=== PATIENT | female | born 1960 | race Caucasian/White ===

== ENCOUNTER → 2020-07-06 10:23 | Outpatient (BNVA) | payer OTHER, SELFPAY | PROVIDERS: PCP Internal Medicine; Visit Provider Surgery Vascular Surgery | DX: Z76.89 Persons encountering health services in other specified circumstances (principal) ==

== ENCOUNTER 2020-07-13 12:56 | Outpatient (REF) | payer OTHER, SELFPAY ==
--- NOTE | 2020-07-13 12:58 | US_ITS ---
EXAMINATION: BILATERAL LOWER EXTREMITY VENOUS ULTRASOUND (Reflux Exam) CLINICAL INDICATION: This a 60-year-old female with venous insufficiency. Varicose veins. COMPARISON: None. TECHNIQUE: Color flow triplex imaging and compression Doppler was performed to evaluate both the deep and the superficial systems bilaterally. To evaluate the superficial system, the examination was performed in the upright position. Color-flow Doppler ultrasound and compression ultrasound were utilized. In addition, maneuvers were utilized to demonstrate reflux. FINDINGS: 1. DEEP VENOUS ULTRASOUND OF THE RIGHT LOWER EXTREMITY: Common Femoral Vein: Compressible, normal respiratory variation and augmented flow. Femoral vein: Compressible, normal color flow and augmentation. Popliteal Vein: Compressible, normal augmentation. Deep Reflux: There is reflux in the popliteal vein with a reflux time of 2292 ms.. There is no evidence of a Alcantar's cyst. 2. SUPERFICIAL ULTRASOUND WITH DOPPLER OF RIGHT LOWER EXTREMITY GREAT SAPHENOUS VEIN: Saphenofemoral junction: 0.7 cm Mid thigh: 0.5 cm Above knee: 0.4 cm Below knee: 0.3 cm Mid calf: 0.3 cm Ankle: 0.3 cm GSV REFLUX: There is no reflux at the saphenofemoral junction down to the knee. There is a short focal area of reflux in the mid calf with reflux time of 2724 ms. DUPLICATED GREAT SAPHENOUS VEIN: There is a duplicated medial great saphenous vein measuring 0.3 cm without reflux. SMALL SAPHENOUS VEIN: Upper: 0.5 cm Lower: Your 0.3 cm SSV REFLUX: No evidence of reflux. VEIN OF GIACOMINI: None Imaged. PERFORATORS: There is a 0.2 cm proximal calf project coordinator rn without reflux. VARICOSITIES: There is a 0.3 cm mid thigh varicose vein without reflux. 3. DEEP VENOUS ULTRASOUND OF THE LEFT LOWER EXTREMITY: Common Femoral Vein: Compressible, normal respiratory variation and augmented flow. Femoral vein: Compressible, normal color flow and augmentation. Popliteal Vein: Compressible, normal augmentation. Deep Reflux: There is no evidence of reflux in the deep system in either the common femoral vein or the popliteal vein. There is no evidence of a Alcantar's cyst. 4. SUPERFICIAL ULTRASOUND WITH DOPPLER OF LEFT LOWER EXTREMITY GREAT SAPHENOUS VEIN: Saphenofemoral junction: 0.7 cm Mid thigh: 0.5 cm Above knee: 0.5 cm Below knee: 0.4 cm Mid calf: 0.3 cm Ankle: 0.3 cm GSV REFLUX: There is no reflux at the saphenofemoral junction down to the knee. There is a short focal area below the knee with reflux measuring 2524 ms. DUPLICATED GREAT SAPHENOUS VEIN: There is a medial duplicated Great saphenous vein measuring 0.4 cm. This is without reflux. SMALL SAPHENOUS VEIN: Upper: 0.2 cm Lower: 0.2 cm SSV REFLUX: There is only reflux in the mid calf within the small saphenous. This is not seen at the junction. VEIN OF GIACOMINI: None Imaged. PERFORATORS: There is a 0.2 cm project coordinator rn with reflux measuring 2564 ms. VARICOSITIES: None Imaged US/US venous duplex LE BI IMPRESSION: 1. There are bilateral patent great saphenous veins and medial duplicated great saphenous veins and small saphenous veins. However, there is no reflux at the saphenofemoral junction or the sapheno popliteal junction, respectively. 2. There is a nonrefluxing right mid thigh varicose vein. 3. There is a project coordinator rn with reflux in the left mid calf.
== END 2020-07-13 12:57 | disposition home or self-care (01) ==
LOC: HO.US 12:56
PROVIDERS: PCP Internal Medicine; Visit Provider Surgery Vascular Surgery
DX: I83.12 Varicose veins of left lower extremity with inflammation (principal); I83.813 Varicose veins of bilateral lower extremities with pain
CPT/HCPCS: 93970

== ENCOUNTER → 2020-08-03 13:06 | Outpatient (BNVA) | payer OTHER, SELFPAY | PROVIDERS: PCP Internal Medicine; Referring Provider Internal Medicine; Visit Provider Surgery Vascular Surgery | DX: Z76.89 Persons encountering health services in other specified circumstances (principal) ==

== ENCOUNTER 2020-09-30 07:20 | Outpatient (REF) | payer OTHER, SELFPAY ==
--- NOTE | ~2020-09-30 | MM_ITS ---
EXAMINATION: MM SCREENING DIGITAL BREAST TOMOSYNTHESIS, BILATERAL CLINICAL INFORMATION: Screening. Asymptomatic. The lifetime risk of breast cancer based on the Tyrer-Cuzick Model is 13.5%. COMPARISON: Mammography: September 25, 2019 and studies dating back to May 30, 2013 TECHNIQUE: Digital breast tomosynthesis is performed in both the craniocaudal and mediolateral oblique views along with computer-aided detection (CAD). Synthesized 2D images are generated from the tomosynthesis. FINDINGS: There are scattered areas of fibroglandular density (ACR BI-RADS breast composition Category b). There are no significant masses, abnormal calcifications, or other abnormalities. MM/MM tomosynthesis screening BI IMPRESSION: There are no significant changes from prior study. ASSESSMENT: BI-RADS 1: Negative RECOMMENDATION: Routine annual mammography screening. This patient's information was entered into a reminder system with a target due date for their next mammogram.
== END 2020-09-30 07:21 | disposition home or self-care (01) ==
LOC: HO.MAMMO 07:20
PROVIDERS: Visit Provider Internal Medicine
DX: Z12.31 Encounter for screening mammogram for malignant neoplasm of breast (principal)
CPT/HCPCS: 77063; 77067

== ENCOUNTER 2021-10-10 07:16 | Outpatient (REF) | payer OTHER, SELFPAY ==
--- NOTE | ~2021-10-10 | MM_ITS ---
EXAMINATION: MM SCREENING DIGITAL BREAST TOMOSYNTHESIS, BILATERAL CLINICAL INFORMATION: Screening. Asymptomatic. The lifetime risk of breast cancer based on the Tyrer-Cuzick Model is 13%. COMPARISON: Mammography: 09/30/2020, 09/25/2019, 09/19/2018 TECHNIQUE: Digital breast tomosynthesis is performed in both the craniocaudal and mediolateral oblique views along with computer-aided detection (CAD). Synthesized 2D images are generated from the tomosynthesis. FINDINGS: There are scattered areas of fibroglandular density (ACR BI-RADS breast composition Category b). There are no significant masses, abnormal calcifications, or other abnormalities. Parenchymal pattern is similar to prior studies. There is no developing density or architectural abnormality. There are 2 biopsy clip markers again seen posterior central right breast. The axilla and skin contours are unremarkable. No significant changes. MM/MM tomosynthesis screening BI IMPRESSION: No mammographic evidence of malignancy. ASSESSMENT: BI-RADS 1: Negative RECOMMENDATION: Routine annual mammography screening. This patient's information was entered into a reminder system with a target due date for their next mammogram.
== END 2021-10-10 07:17 | disposition home or self-care (01) ==
LOC: HO.MAMMO 07:16
PROVIDERS: PCP Internal Medicine; Visit Provider Internal Medicine
DX: Z12.31 Encounter for screening mammogram for malignant neoplasm of breast (principal)
CPT/HCPCS: 77063; 77067

== ENCOUNTER 2021-11-17 15:00 | Outpatient (RCR) | payer OTHER, SELFPAY | END 2021-11-17 18:16 | disposition home or self-care (01) | LOC: HO.PT 15:00 | PROVIDERS: PCP Internal Medicine; Visit Provider Physician Assistant | DX: M48.00 Spinal stenosis, site unspecified (principal) | CPT/HCPCS: 97012; 97014; 97110; 97140; 97162; 97530 ==

== ENCOUNTER 2022-09-06 15:00 | Outpatient (RCR) | payer OTHER, SELFPAY | END 2022-09-07 11:46 | disposition home or self-care (01) | LOC: HO.PT 15:00 | PROVIDERS: PCP Internal Medicine; Visit Provider Physician Assistant | DX: M25.511 Pain in right shoulder (principal) | CPT/HCPCS: 97110; 97140; 97162; 97530 ==

== ENCOUNTER → 2022-09-27 09:52 | Outpatient (BNVA) | payer OTHER, SELFPAY | PROVIDERS: PCP Internal Medicine; Visit Provider Internal Medicine Cardiovascular Disease | DX: R00.2 Palpitations (principal); I10 Essential (primary) hypertension; E78.5 Hyperlipidemia, unspecified | CPT/HCPCS: 93005 ==

== ENCOUNTER → 2022-10-02 15:11 | Outpatient (REF) | payer OTHER, SELFPAY ==
--- NOTE | 2022-10-02 15:22 | HM_ITS ---
Conclusion: 1. Patient was monitored for total period of 6 days and 23 hours 2. Baseline was normal sinus with average heart of 71 beats per minute 3. No significant pauses or bradycardia noted 4. Rare PACs and PVCs noted 5. Patient marked the counters 2 time without any associated symptoms, correlating with sinus rhythm MTDD
--- NOTE | 2022-10-02 15:22 | CA_ITS ---
Transthoracic Echocardiogram Patient (Last, First, Middle): Candelaria Cedillo G Gender: Female Date of : 1960 Age: 62 Procedure Date: 10/02/2022 Procedure Type: Transthoracic Echocardiogram Location: OP Height: 167.64 cm Weight: 96.62 kg BSA: 2.05 m2 Heart Rate: bpm BP: 123 / 60 mmHg [place] Developer: Referring MD: Tay Priest MD Director Business Management: Tay Priest MD Symptoms: I10 - Essential (primary) hypertension Study Quality: Good ECG Rhythm: Sinus Conclusions: - 1. Normal LV systolic function with grade 1 diastolic dysfunction 2. Early Mild aortic stenosis 3. Normal RV systolic pressure 4. No gross pericardial effusion Findings Left Ventricle Normal left ventricular size, thickness, and systolic function. The visually estimated ejection fraction is between 60-65%. Spectral Doppler is indicative of an impaired relaxation filling pattern. E/E prime ratio is <8, consistent with normal filling pressures. Evidence suggests grade I (mild) diastolic dysfunction. Right Ventricle Normal right ventricular cavity size and systolic function. Atria The left atrium is normal in size. There is no evidence of interatrial shunt. The right atrium is normal in size. Aortic Valve There is mild calcification of the aortic valve. There is mild thickening of the aortic valve. There is mild aortic valve stenosis. The peak aortic gradient is 22 mmHg.The mean gradient is 10 mmHg. There is no aortic valve regurgitation. Mitral Valve There is mild anterior and posterior mitral leaflet thickening. There is trace mitral valve regurgitation. There is no mitral valve stenosis. Pulmonic Valve The pulmonic valve was not well visualized. Tricuspid Valve Likely normal tricuspid valve structure and function. There is mild tricuspid valve regurgitation. The right ventricular systolic pressure is normal. The right ventricular systolic pressure is 32 mmHg. Normal right atrial pressure. There is no evidence of pulmonary hypertension. Great Vessels All visible segments of the aorta are normal in size. The pulmonary artery was not well visualized. Venous The inferior vena cava is normal in size and collapses greater than 50% with inspiration. Pericardium/Pleural There is no evidence of pericardial effusion. Prior Study Comparison No prior study available for comparison. Measurements 2D Linear Measurements IVSd: 1.16 0.6-0.9/0.6-1.0 cm LVIDd: 3.94 3.9-5.3/4.2-5.9 cm LVIDd Index: 1.92 2.4-3.2/2.2-3.1 cm/m2 LVIDs: 2.54 2.0-3.6 cm LVPWd: 1.14 0.7-1.1 cm Ao Root: 3.00 2.1-3.5 cm LA Diam: 3.60 2.7-3.8/3.0-4.0 cm LAIDs Index: 1.76 1.5-2.3 cm/m2 LV Mass: 189.08 67-162/88-224 g LV Mass Index: 92.23 43-95/49-115 g/m2 LVOT Diam: 2.20 3.0+(-)1.3 cm Mitral Valve MV Pk E: 0.59 MV PK A: 1.07 MV Decel Time: 210.00 E/A: 0.60 E'Lateral: 7.07 E'Medial: 7.94 E/E' Med: 7.40 E/E' Lat: 8.40 PHT: 62.00 MVA PHT: 3.55 Decel White: 2.81 Aortic Valve AoV Pk Rajendra: 2.37 AoV Mn Rajendra: 1.47 AoV VTI: 0.42 AoV Pk Grad: 22.00 Aov Mn Grad: 10.00 PRISCILA Cont.VTI: 2.03 LVOT LVOT Pk Rajendra: 1.12 LVOT Mn Rajendra: 0.74 LVOT VTI: 0.23 LVOT Pk Grad: 5.00 LVOT Mn Grad: 3.00 LVOT Diam: 2.20 LVOT Area: 3.80 Diastolic Function MV Pk E: 0.59 MV Pk A: 1.07 E/A: 0.60 E'Medial: 7.94 E/E' Med: 7.40 E' Laterial: 7.07 E/E' Lat: 8.40 Right Ventricle TAPSE (mm): 28.00 Tricuspid Valve TR Pk Rajendra: 2.68 TR Pk Grad: 29.00 RA Press: 3.00 RVSP: 32.00 Great Vessels Aorta Ao Root-2D: 3.00 2.0-3.7 cm Ao Asc: 3.50 2.1-3.4 cm Pulmonary Valve PV Pk Rajendra: 1.33 Peak PV Grad: 7.00 Updated in Other Vendor System with Status of Final Tay Priest MD electronically signed on 10/03/2022 5:22:33 PM with status of Final
== END ==
LOC: HO.CARD 15:11
PROVIDERS: PCP Internal Medicine; Visit Provider Internal Medicine Cardiovascular Disease
DX: R00.2 Palpitations (principal); I10 Essential (primary) hypertension
CPT/HCPCS: 93242; 93306

== ENCOUNTER → 2022-10-02 15:11 | Outpatient (REF) | payer OTHER, SELFPAY | LOC: HO.CARD 15:11 | PROVIDERS: PCP Internal Medicine; Visit Provider Internal Medicine Cardiovascular Disease | DX: Z13.89 Encounter for screening for other disorder (principal) ==

== ENCOUNTER 2022-10-23 07:22 | Outpatient (REF) | payer OTHER, SELFPAY ==
--- NOTE | ~2022-10-23 | MM_ITS ---
EXAMINATION: MM SCREENING DIGITAL BREAST TOMOSYNTHESIS, BILATERAL CLINICAL INFORMATION: Screening. Asymptomatic. Family history breast cancer. The lifetime risk of breast cancer based on the Tyrer-Cuzick Model is 18%. COMPARISON: Mammography: 10/10/2021, 09/30/2020, 09/25/2019, 09/19/2018 TECHNIQUE: Digital breast tomosynthesis is performed in both the craniocaudal and mediolateral oblique views along with computer-aided detection (CAD). Synthesized 2D images are generated from the tomosynthesis. FINDINGS: There are scattered areas of fibroglandular density (ACR BI-RADS breast composition Category b). There are no significant masses, abnormal calcifications, or other abnormalities. No architectural abnormality or developing density or significant change from prior studies. There are 2 biopsy clip markers again noted posterior lower central right breast. The axilla and skin contours are unremarkable. MM/MM tomosynthesis screening BI IMPRESSION: No mammographic evidence of malignancy. ASSESSMENT: BI-RADS 1: Negative RECOMMENDATION: Routine annual mammography screening. This patient's information was entered into a reminder system with a target due date for their next mammogram.
== END 2022-10-23 07:23 | disposition home or self-care (01) ==
LOC: HO.MAMMO 07:22
PROVIDERS: PCP Physician Assistant; Visit Provider Internal Medicine
DX: Z12.31 Encounter for screening mammogram for malignant neoplasm of breast (principal)
CPT/HCPCS: 77063; 77067

== ENCOUNTER → 2022-11-22 13:25 | Outpatient (BNVA) | payer OTHER, SELFPAY | PROVIDERS: PCP Physician Assistant; Referring Provider Physician Assistant; Visit Provider Internal Medicine Cardiovascular Disease | DX: Z13.89 Encounter for screening for other disorder (principal) ==

== ENCOUNTER 2022-12-18 14:54 | Outpatient (REF) | payer OTHER, SELFPAY ==
--- NOTE | ~2022-12-18 | XR_ITS ---
EXAMINATION: XR sacroiliac joint min 3V, XR lumbar spine 6V w bending CLINICAL INFORMATION: Reason for Exam M47.816 - Spondylosis without myelopathy or radiculopathy, lumbar region COMPARISON: Lumbar spine radiographs 03/29/2009 TECHNIQUE: 5 views of the lumbar spine. 3 views of the sacroiliac joints. FINDINGS: 5 nonrib-bearing lumbar-type vertebral bodies. Vertebral body heights are maintained. Levoconvex curvature of the lumbar spine. No pars defects. Moderate to advanced multilevel degenerative disc disease worst at L5-S1 where there is advanced loss of disc space height and advanced facet arthropathy. Atherosclerosis of the abdominal aorta. Right upper quadrant cholecystectomy clips. Sacroiliac joint spaces appear maintained. No cortical erosion. No sacral fracture identified. Mild degenerative changes of the bilateral hips with subchondral sclerosis. XR/XR sacroiliac joint min 3V IMPRESSION: 1. Levoconvex curvature of the lumbar spine with moderate to advanced multilevel degenerative disc disease worst at L5-S1 where there is advanced loss of disc space height and advanced facet arthropathy. 2. Sacroiliac joint spaces appear maintained. 3. Mild degenerative changes of the bilateral hips with subchondral sclerosis.
--- NOTE | ~2022-12-18 | XR_ITS ---
EXAMINATION: XR sacroiliac joint min 3V, XR lumbar spine 6V w bending CLINICAL INFORMATION: Reason for Exam M47.816 - Spondylosis without myelopathy or radiculopathy, lumbar region COMPARISON: Lumbar spine radiographs 03/29/2009 TECHNIQUE: 5 views of the lumbar spine. 3 views of the sacroiliac joints. FINDINGS: 5 nonrib-bearing lumbar-type vertebral bodies. Vertebral body heights are maintained. Levoconvex curvature of the lumbar spine. No pars defects. Moderate to advanced multilevel degenerative disc disease worst at L5-S1 where there is advanced loss of disc space height and advanced facet arthropathy. Atherosclerosis of the abdominal aorta. Right upper quadrant cholecystectomy clips. Sacroiliac joint spaces appear maintained. No cortical erosion. No sacral fracture identified. Mild degenerative changes of the bilateral hips with subchondral sclerosis. XR/XR lumbar spine 6V w bending IMPRESSION: 1. Levoconvex curvature of the lumbar spine with moderate to advanced multilevel degenerative disc disease worst at L5-S1 where there is advanced loss of disc space height and advanced facet arthropathy. 2. Sacroiliac joint spaces appear maintained. 3. Mild degenerative changes of the bilateral hips with subchondral sclerosis.
== END 2022-12-18 14:55 | disposition home or self-care (01) ==
LOC: HO.XRAY 14:54
PROVIDERS: PCP Physician Assistant; Visit Provider Nurse Practitioner Family
DX: M47.816 Spondylosis without myelopathy or radiculopathy, lumbar region (principal); M53.3 Sacrococcygeal disorders, not elsewhere classified; M62.830 Muscle spasm of back; M51.36 Other intervertebral disc degeneration, lumbar region
CPT/HCPCS: 72114; 72202

== ENCOUNTER 2023-05-05 07:57 | Outpatient (REF) | payer OTHER, SELFPAY ==
[2023-05-05 09:14] LABS: Cholesterol 223 mg/dL (<200); HDL Cholesterol 40 mg/dL (>40); LDL Cholesterol Calculated 132 mg/dL (<100); Triglycerides 257 mg/dL (<150)
[2023-05-07 13:44] LABS: CRP High Sensitivity 2.1 mg/L
== END 2023-05-05 07:58 | disposition home or self-care (01) ==
LOC: HO.LAB 07:57
PROVIDERS: PCP Internal Medicine; Visit Provider Internal Medicine Cardiovascular Disease
DX: E78.5 Hyperlipidemia, unspecified (principal); I25.10 Atherosclerotic heart disease of native coronary artery without angina pectoris
CPT/HCPCS: 36415; 80061; 86141

== ENCOUNTER 2023-05-21 14:50 | Outpatient (AMB) | payer OTHER, SELFPAY ==
[2023-05-21 14:53] VITALS: BP 118/78; PULSE 70; BMI 33.8
--- NOTE | 2023-05-21 14:53 | MHC.OFFVIS ---
Intake Vital Signs 05/21/23 14:53 Height 5 ft 6 in Weight 209 lb 7.026 oz BMI 33.8 BP 118/78 Blood Pressure Location Lt brachial Position Sitting Pulse 70 Intake Visit Reasons: 6 month f/u Intake Note: 6 month follow-up Card Seller Required: No Allergies acetaminophen [From VICODIN] Allergy (Unknown, Verified 12/18/22 15:08) LOW BP/NAUSEA hydrocodone [From VICODIN] Allergy (Unknown, Verified 12/18/22 15:08) NAUSEA/LOW BP oxycodone [From PERCOCET] Allergy (Unknown, Verified 12/18/22 15:08) LOW BP/NAUSEA tramadol [TRAMADOL] Allergy (Unknown, Verified 12/18/22 15:08) NAUSEA/LOW BP, hypotension rosuvastatin Adverse Reaction (Severe, Verified 05/07/23 10:39) Muscle Pain simvastatin Adverse Reaction (Severe, Verified 05/07/23 10:39) Muscle Pain Statin Adverse Reaction (Severe, Uncoded 12/01/22 15:02) Severe joint/muscle pain Medication List - Last Reconciled 05/21/23 by Tay Priest MD ezetimibe 10 mg PO DAILY magnesium carb,citrate,oxide (Magnesium Complex) mg PO multivitamin 1 tab PO DAILY olmesartan 20 mg PO DAILY omeprazole 20 mg PO DAILY HPI HPI Comments History of Present Illness Details Candelaria comes for follow-up. She has been doing well from cardiac perspective. No cardiac symptoms. Blood pressure is much better control. She is not having any significant palpitations. Taking medications regularly. Could not tolerate statin therapy due to muscle aches. LDL is elevated in the 130 range with elevated triglycerides and lower HDL consistent with metabolic syndrome. She does have findings of early aortic stenosis by echocardiogram [facility] Medical History Lumbar radiculitis Hyperlipidemia HTN (hypertension) Surgical History Hx laparoscopic cholecystectomy History of carpal tunnel surgery of left wrist History of carpal tunnel surgery of right wrist H/O section Family History Father Diabetes Hx of heart artery stent Pacemaker Mother No problems noted. Brother No problems noted. Brother No problems noted. Brother No problems noted. Sister No problems noted. Sister Breast cancer Sister No problems noted. Sister No problems noted. Daughter Family history of thyroid problem Daughter No problems noted. Daughter No problems noted. Social History Alcohol intake: current Alcohol intake frequency: holidays/special occasions only Alcohol type: beer Review of Systems Const Denies chills, Denies fatigue, Denies fever(s), Denies frequent falls, Denies weakness, Denies weight gain and Denies weight loss ENT Denies dizziness Card Denies chest pain, Denies leg edema, Denies lightheadedness, Denies palpitations, Denies dyspnea, Denies dyspnea on exertion, Denies orthopnea and Denies other (loss of consciousness) Resp Denies cough, Denies dyspnea and Denies dyspnea on exertion GI Denies hematochezia and Denies change in stool character Musc Denies abnormal gait, Denies muscle weakness, Denies numbness, Denies radiating pain into limb and Denies tingling Neuro Denies Abnormal speech present, Denies abnormal gait, Denies dizziness, Denies frequent falls, Denies numbness, Denies tingling and Denies weakness Endo Denies fatigue and Denies palpitations Physical Exam Vital Signs: Last Vital Signs Pulse 70 05/21/23 14:53 BP 118/78 05/21/23 14:53 BMI result Body Mass Index 33.8 Const General: cooperative, comfortable, no acute distress, alert, awake, Physically active and well groomed Nutritional Appearance: obese Limitations: no limitations Neck Neck: Yes trachea midline, Yes supple and Yes no JVD Resp Effort & Inspection: normal respiratory effort Auscultation: clear to auscultation bilaterally Cardio Jugular venous distension: no JVD Palpation: normal PMI Rate: regular rate Rhythm: regular rhythm Heart sounds: S1 normal heart sound present, S2 normal heart sound present, no click, no gallops, Murmur heart sound present systolic early and no rubs Neuro Speech: No Abnormal speech present Extrem General: Yes no clubbing, cyanosis or edema Assessment & Plan Assessment & Plan (1) HTN (hypertension): Code(s): I10 - Essential (primary) hypertension Plan: Hypertension which is much better control at this point time. Continue current medical therapy. Continue participate regular physical activity and weight loss program. Continue increased fluid and low salt intake. Advised to monitor blood pressure at home maintain a log. Continue participate in stress mitigation strategies. (2) Hyperlipidemia: Code(s): E78.5 - Hyperlipidemia, unspecified Plan: Mixed hyperlipidemia with lipid panel consistent with metabolic syndrome. Cannot tolerate statin therapy. Tolerating Zetia therapy. Although LDL is not well optimized. She has evidence of atherosclerosis with mild early aortic stenosis. Continue aggressive risk factor modification. Will start on Vascepa 2 g b.i.d. and follow-up lipid panel in 3 months time. If no adequate control consider PCSK9 inhibitor therapy. Will follow up in the clinic in 1 year's time, sooner p.r.n.. Thank you for allowing me to partake in her care Coding Level of Care Code Est Pt Level 3 (65417) Diagnoses HTN (hypertension) I10 Hyperlipidemia E78.5
== END 2023-05-21 15:24 | disposition home or self-care (01) ==
PROVIDERS: PCP Internal Medicine; Visit Provider Internal Medicine Cardiovascular Disease
DX: I10 Essential (primary) hypertension (principal); E78.5 Hyperlipidemia, unspecified
CPT/HCPCS: 99213

== ENCOUNTER → 2023-05-21 14:50 | Outpatient (BNVA) | payer OTHER, SELFPAY | PROVIDERS: PCP Internal Medicine; Visit Provider Internal Medicine Cardiovascular Disease ==

== ENCOUNTER 2023-09-25 19:52 | Observation (INO) | payer OTHER, SELFPAY ==
[2023-09-25 19:55] VITALS: BP 90/50; PULSE 64; O2SAT 99
--- NOTE | 2023-09-25 19:59 | ECG_ITS ---
Test Reason : SYNCOPY Blood Pressure : / mmHG Vent. Rate : 057 BPM Atrial Rate : 057 BPM P-R Int : 146 ms QRS Dur : 088 ms QT Int : 418 ms P-R-T Axes : 013 024 049 degrees QTc Int : 406 ms Sinus bradycardia Septal infarct , age undetermined Abnormal ECG When compared with ECG of 12-FEB-2019 15:17, Septal infarct is now Present Referred By: Generic ED Physician Electronically Signed By:KHRIS SANTANA MD
[2023-09-25 20:12] VITALS: BP 110/68; PULSE 62; RESP 16; TEMP 36.8; O2SAT 100; BMI 30.5
[2023-09-25 20:29] LABS: MANUAL DIFF FLAG NO
[2023-09-25 20:44] LABS: Anion Gap 13 (12-20); Blood Urea Nitrogen 18 mg/dL (9-16); Calcium 9.3 mg/dL (8.4-10.2); Carbon Dioxide 24 mmol/L (22-29); Chloride 106 mmol/L (96-108); Creatinine Clr Calc Pharmacy 58.5; Estimated Glomerular Filt Rate 50; Glucose Random 156 mg/dL (60-115); Potassium 4.1 mmol/L (3.3-5.1); Sodium 139 mmol/L (135-145)
[2023-09-25 20:45] LABS: Basophils Percent Auto 0.5 % (0-2); Eosinophils Absolute Auto 0.1 X10*3/uL (0.0-0.4); Eosinophils Percent Auto 1.4 % (0-4); Hematocrit 39.4 % (37.0-47.0); Hemoglobin 13.5 g/dl (12.0-16.0); Imm Gran Abs Auto 0.04 X10*3/uL (0.00-0.03); Imm Gran Pct Auto 0.5 % (0.0-0.4); Lymphocytes Absolute Auto 3.3 X10*3/uL (1.2-4.9); Lymphocytes Percent Auto 41.5 % (20-40); Mean Corpuscular HGB Conc 34.3 g/dl (31.0-35.0); Mean Corpuscular Hemoglobin 29.5 pg (27.0-33.0); Mean Corpuscular Volume 86.2 fL (80.0-98.0); Mean Platelet Volume 11.3 fL (9.4-12.3); Monocytes Absolute Auto 0.6 X10*3/uL (0.1-1.2); Monocytes Percent Auto 7.3 % (2-11); Neutrophils Absolute Auto 3.9 x10*3/uL (2.0-8.3); Neutrophils Percent Auto 48.8 % (45-73); Platelet Count 241 X10*3/uL (160-400); Red Blood Count 4.57 X10*6/uL (4.20-5.50); Red Cell Distribution Width 12.9 % (11.0-16.0)
--- NOTE | 2023-09-25 20:46 | ED.SYNCOPE ---
HPI - Syncope General Chief Complaint: Syncope Stated Complaint: SYNCOPE,TINGLING IN EXTREMITIES,GAVE BLOOD EARLIER Time Seen by Provider: 09/25/23 20:45 Source: patient and family Mode of arrival: EMS Limitations: no limitations History of Present Illness HPI narrative: Patient history of hypertension high cholesterol otherwise very healthy person turned her blurred as usual at around 11:00 had some food after that feels good went home sitting on the couch watching TV all sudden at 17:00 when patient stood up to get some water started having sweats nausea and lightheaded patient passed out while sitting on the couch was at the bedside patient does not remember no seizure activity no confusion no incontinence Patient never had similar symptoms in the past denies any palpitation or chest pain EMS gave patient 4 baby aspirin Related Data Home Medications Medication Instructions Recorded Confirmed omeprazole 20 mg capsule,delayed 20 mg PO DAILY 07/06/20 09/26/23 release magnesium carb,citrate,oxide 300 mg PO 05/21/23 05/21/23 (Magnesium Complex) multivitamin (Daily Value tablet) 1 tab PO DAILY 05/21/23 09/26/23 Previous Rx's Medication Instructions Recorded ezetimibe 10 mg tablet 10 mg PO DAILY #30 tabs 06/11/23 olmesartan 5 mg tablet 10 mg (2 x 5 mg) PO DAILY 30 days 08/23/23 #60 tabs Allergies Allergy/AdvReac Type Severity Reaction Status Date / Time acetaminophen [From VICODIN] Allergy Unknown LOW Verified 09/26/23 00:51 BP/NAUSEA hydrocodone [From VICODIN] Allergy Unknown NAUSEA/LOW Verified 09/26/23 00:51 BP oxycodone [From PERCOCET] Allergy Unknown LOW Verified 09/26/23 00:51 BP/NAUSEA tramadol [TRAMADOL] Allergy Unknown NAUSEA/LOW Verified 09/26/23 00:51 BP, hypotension rosuvastatin AdvReac Severe Muscle Pain Verified 09/26/23 00:51 simvastatin AdvReac Severe Muscle Pain Verified 09/26/23 00:51 Statin AdvReac Severe Severe Uncoded 12/01/22 15:02 joint/muscle pain Review of Systems Review of Systems: Yes all other systems are reviewed and are negative PMFSH Past Medical History Medical History Lumbar radiculitis Hyperlipidemia HTN (hypertension) Surgical History Hx laparoscopic cholecystectomy History of carpal tunnel surgery of left wrist History of carpal tunnel surgery of right wrist H/O section Family History Family History Father Diabetes Hx of heart artery stent Pacemaker Mother No problems noted. Brother No problems noted. Brother No problems noted. Brother No problems noted. Sister No problems noted. Sister Breast cancer Sister No problems noted. Sister No problems noted. Daughter Family history of thyroid problem Daughter No problems noted. Daughter No problems noted. Social History Social History Alcohol intake: current Alcohol intake frequency: holidays/special occasions only Alcohol type: beer Patient Tobacco Use Status: Never used Tobacco Smoked in Last 30 Days: No Use of substances other than those prescribed or required for medical reasons: No Advance Directives: No Advance Directives Information Provided: No Nutrition Risks: No Nutritional Risk Patient : No Physical Exam Vital Signs: Vital Signs: Last Vital Signs Temp 97.8 F 09/26/23 00:30 Pulse 62 09/26/23 00:30 Resp 17 09/26/23 00:30 BP 119/77 09/26/23 00:30 Pulse Ox 95 09/26/23 00:30 O2 Del Method Room Air 09/26/23 00:30 BMI result Body Mass Index 30.5 Appearance: Alert. Oriented X3. No acute distress. Eyes: PERRLA, No Nystagmus ENT: Pharynx normal. Oral Mucosa moist Neck: Normal inspection. Neck supple. CVS: Normal heart rate and rhythm. Pulses normal. Respiratory: No respiratory distress. Equal air entry bilateral, no wheezing/rales/rhonchi Abdomen: Soft and nontender. Bowel sounds are present, no mass palpable, no CVA tenderness Skin: Skin warm and dry. Normal skin color. Normal skin turgor. Extremities: No lower extremity edema. No calf tenderness Neuro: Oriented X 3. No motor deficit. No sensory deficit.No cerebellar signs , cranial nerves II-XII intact Medications Administered Generic Name Dose Route Start Last Admin Trade Name Freq PRN Reason Stop Dose Admin Enoxaparin Sodium 40 mg 09/25/23 23:30 09/26/23 01:07 Enoxaparin Sodium 40 Mg/0.4 Ml Syringe SUBCUT 40 mg Q24H MARIA Administration Sodium Chloride 3 ml 09/26/23 00:00 09/26/23 00:45 0.9 % Sodium Chloride Flush 3 Ml Syringe IVFLUSH 3 ml QSHIFT MARIA Administration Discontinued Medications Generic Name Dose Route Start Last Admin Trade Name Freq PRN Reason Stop Dose Admin Sodium Chloride 1,000 mls @ 999 mls/hr 09/25/23 23:31 09/26/23 00:47 Ns IV 09/26/23 00:31 999 mls/hr .Q1H1M ONE Administration Medical Decision Making Medical Decision Making [facility] Narrative: Patient's syncope episode etiology not very clear will admit patient for further evaluation orthostatics are normal patient had 2D echo and Holter monitoring on 10/19 which were normal Differential Diagnosis Differential Diagnoses: The differential diagnosis associated with the presentation includes Syncope/vasovagal/cardiac arrhythmias/complex partial seizure Admission/Observation Consideration of admission/observation: Escalation of care including admission/observation considered Consult Healthcare Provider Management of the patient was discussed with: Hospitalist Lab Data [facility] Lab Attestation statement: I reviewed the patient's lab results. 09/25/23 20:24 09/25/23 20:24 Labs: Lab Results 09/25/23 09/25/23 09/25/23 Range/Units 20:24 21:22 21:51 WBC 8.0 (4.8-10.8) X10*3/uL RBC 4.57 (4.20-5.50) X10*6/uL Hgb 13.5 (12.0-16.0) g/dl Hct 39.4 (37.0-47.0) % MCV 86.2 (80.0-98.0) fL MCH 29.5 (27.0-33.0) pg MCHC 34.3 (31.0-35.0) g/dl RDW 12.9 (11.0-16.0) % Plt Count 241 (160-400) X10*3/uL MPV 11.3 (9.4-12.3) fL Immature Gran % (Auto) 0.5 H (0.0-0.4) % Neut % (Auto) 48.8 (45-73) % Lymph % (Auto) 41.5 H (20-40) % [place] % (Auto) 7.3 (2-11) % Eos % (Auto) 1.4 (0-4) % Baso % (Auto) 0.5 (0-2) % Lymph # (Auto) 3.3 (1.2-4.9) X10*3/uL [place] # (Auto) 0.6 (0.1-1.2) X10*3/uL Eos # (Auto) 0.1 (0.0-0.4) X10*3/uL Baso # (Auto) 0.0 (0.0-0.2) X10*3/uL Abs Immat Gran (auto) 0.04 H (0.00-0.03) X10*3/uL Absolute Neuts (auto) 3.9 (2.0-8.3) x10*3/uL Absolute Nucleated RBC 0.000 (0.0-0.012) X10*3/uL Nucleated RBC % (auto) 0.0 (0.0-0.2) /100WBC PT 11.6 (11.1-13.3) SEC INR 1.0 (0.9-1.1) APTT 30.0 (26.0-36.8) SEC D-Dimer High Sensitivty 155 NG/ML Sodium 139 (135-145) mmol/L Potassium 4.1 (3.3-5.1) mmol/L Chloride 106 (96-108) mmol/L Carbon Dioxide 24 (22-29) mmol/L Anion Gap 13 (12-20) BUN 18 H (9-16) mg/dL Creatinine 1.10 (0.5-1.4) mg/dL Estim Creat Clear Calc 58.5 Estimated GFR 50 Random Glucose 156 H (60-115) mg/dL Calcium 9.3 (8.4-10.2) mg/dL Magnesium 2.1 (1.6-2.6) mg/dL Troponin I High Sens < 2.7 (<3.5-17.0) ng/L Independent Interpretation I performed an independent interpretation of an: EKG Interpretation: Sinus bradycardia heart rate 57 beats per minute poor progression of R-waves in the anterior leads no acute ST T wave changes no acute ischemia Discharge Plan Discharge Clinical Impression: Syncope Patient Disposition: Admitted As Inpatient Interventions: Admission Worksheet (ED) Last Done: 09/26/23 01:15
--- NOTE | 2023-09-25 21:09 | MHC.EDTECH ---
This Tech assumed care of this PT upon arrival. Pt changed into hospital gown and placed on airport sales agent. red fall risk wristband and socks put on PT. EKG completed and handed to provider. Blood work and urine sent to lab for processing
[2023-09-25 22:02] LABS: Prothrombin Time 11.6 SEC (11.1-13.3)
[2023-09-25 22:04] LABS: D Dimer High Sensitivity 155 NG/ML
[2023-09-25 22:10] LABS: Magnesium 2.1 mg/dL (1.6-2.6)
[2023-09-25 22:18] VITALS: BP 120/71; PULSE 63
[2023-09-25 22:18] LABS: Troponin-I High Sensitivity < 2.7 ng/L (<3.5-17.0)
[2023-09-25 22:19] VITALS: BP 123/98; BP 129/75; PULSE 74; PULSE 77
[2023-09-25 22:22] VITALS: BP 120/71; PULSE 64; RESP 18; TEMP 36.8; O2SAT 99
[2023-09-25 23:29] VITALS: PULSE 64; O2SAT 99
--- NOTE | 2023-09-25 23:31 | P.HPHOSP_ITS ---
History of Present Illness Date of Service: 09/25/23 Chief Complaint: Syncope This is a 63-year-old female with pertinent history of essential hypertension, gastroesophageal reflux disease, mixed hyperlipidemia who presents to the emergency department for evaluation of syncope. Patient states she donated blood on the day of presentation. Patient was watching TV in the evening when she stood up to go to the kitchen. As she stood up, patient states she got dizzy and felt like she would pass out. Also had an episode of sweating and nausea. The found that the patient was passed out in the chair. It lasted for about 5 minutes. No rhythmic jerking movement of extremities, no tongue bite. No confusion after the syncopal episode. Patient states she has donated blood before but this has never happened. No chest discomfort or palpitations. No fever, chills, shortness of breath, abdominal pain, changes in urinary or bowel habits. Review of Systems 2 Constitutional: Constitutional: Reports no additional constitutional complaints Cardiovascular: Cardiovascular: Reports no additional cardiovascular complaints and Reports syncope Respiratory: Respiratory: Reports no additional respiratory complaints Gastrointestinal: Gastrointestinal: Reports no additional gastrointestinal complaints Genitourinary: Genitourinary: Reports no additional female genitourinary complaints Musculoskeletal: Musculoskeletal: Reports tingling Neurologic: Reports syncope and Reports tingling PMFSH Medical History Lumbar radiculitis Hyperlipidemia HTN (hypertension) Family History Father Diabetes Hx of heart artery stent Pacemaker Mother No problems noted. Brother No problems noted. Brother No problems noted. Brother No problems noted. Sister No problems noted. Sister Breast cancer Sister No problems noted. Sister No problems noted. Daughter Family history of thyroid problem Daughter No problems noted. Daughter No problems noted. Surgical History Hx laparoscopic cholecystectomy History of carpal tunnel surgery of left wrist History of carpal tunnel surgery of right wrist H/O section Social History Alcohol intake: current Alcohol intake frequency: holidays/special occasions only Alcohol type: beer Advance Directives: No Advance Directives Information Provided: No Meds Allergies Allergy/AdvReac Type Severity Reaction Status Date / Time acetaminophen [From VICODIN] Allergy Unknown LOW Verified 12/18/22 15:08 BP/NAUSEA hydrocodone [From VICODIN] Allergy Unknown NAUSEA/LOW Verified 12/18/22 15:08 BP oxycodone [From PERCOCET] Allergy Unknown LOW Verified 12/18/22 15:08 BP/NAUSEA tramadol [TRAMADOL] Allergy Unknown NAUSEA/LOW Verified 12/18/22 15:08 BP, hypotension rosuvastatin AdvReac Severe Muscle Pain Verified 05/07/23 10:39 simvastatin AdvReac Severe Muscle Pain Verified 05/07/23 10:39 Statin AdvReac Severe Severe Uncoded 12/01/22 15:02 joint/muscle pain Home Medications Medication Instructions Recorded Confirmed Last Taken Type omeprazole 20 mg capsule,delayed 20 mg PO DAILY 07/06/20 05/21/23 Unknown History release magnesium carb,citrate,oxide mg PO 05/21/23 05/21/23 Unknown History (Magnesium Complex) multivitamin 1 tab PO DAILY 05/21/23 05/21/23 Unknown History Physical Exam 2 Vital Signs and Narrative: Vital Signs: Last Vital Signs Temp 98.3 F 09/25/23 22:22 Pulse 64 09/25/23 22:22 Resp 18 09/25/23 22:22 BP 120/71 09/25/23 22:22 Pulse Ox 99 09/25/23 22:22 O2 Del Method Room Air 09/25/23 22:22 BMI result Body Mass Index 30.5 Middle-aged female lying in bed in no distress Neck supple, no JVD Regular rate and rhythm, S1-S2 heard Regular breath sounds bilaterally, no wheezing or crackles appreciated Abdomen soft nontender, no guarding, no rigidity Patient is awake, alert and oriented to self, place, time and person ; no focal motor deficit Psych: Normal mood No pedal edema Results Labs 09/25/23 20:24 09/25/23 20:24 Labs: Laboratory Results - last 24 hr 09/25/23 09/25/23 09/25/23 20:24 21:22 21:51 MCV 86.2 MCH 29.5 MCHC 34.3 RDW 12.9 Plt Count 241 MPV 11.3 Immature Gran % (Auto) 0.5 H Neut % (Auto) 48.8 Lymph % (Auto) 41.5 H [place] % (Auto) 7.3 Eos % (Auto) 1.4 Baso % (Auto) 0.5 Lymph # (Auto) 3.3 [place] # (Auto) 0.6 Eos # (Auto) 0.1 Baso # (Auto) 0.0 Abs Immat Gran (auto) 0.04 H Absolute Neuts (auto) 3.9 Absolute Nucleated RBC 0.000 Nucleated RBC % (auto) 0.0 PT 11.6 INR 1.0 APTT 30.0 D-Dimer High Sensitivty 155 Anion Gap 13 Estim Creat Clear Calc 58.5 Estimated GFR 50 Random Glucose 156 H Calcium 9.3 Magnesium 2.1 Assessment and Plan (1) Syncope: Status: Acute Plan This is a 63-year-old female with pertinent history of essential hypertension, gastroesophageal reflux disease, mixed hyperlipidemia who presents to the emergency department for evaluation of syncope. #. Syncope, unclear etiology: ?orthostatic. Will admit patient for observation with cardiac monitoring. Resuscitating with IV crystalloids. Repeat orthostatics in a.m. #. Essential hypertension: On olmesartan #. Gastroesophageal reflux disease: On PPI #. Mixed hyperlipidemia: On Zetia Med rec pending DVT prophylaxis: Lovenox Full code Quality Stroke Does the patient have a stroke diagnosis?: No VTE Prior VTE?: No VTE Risk Level:: Medical - moderate - high VTE Device Contraindication: Treatment Not Indicated VTE Drug Contraindication: N/A - Med Ordered
[2023-09-26] VITALS (8 sets, daily range): BP systolic 114–140; BP diastolic 58–91; PULSE 58–76; RESP 17–20; TEMP 36–36.6; O2SAT 95–100
[2023-09-26] MEDS: 0.9 % Sodium Chloride Flush 3 ML SYRINGE IVFLUSH ×2 (00:45→08:45)
[2023-09-26] MEDS: 0.9 % Sodium Chloride 1,000 ML 999 ML IV (00:47)
[2023-09-26] MEDS: Enoxaparin Sodium 40 MG/0.4 ML SYRINGE SUBCUT (01:07)
--- NOTE | 2023-09-26 01:14 | PC.NURSE ---
Med rec done, Pt able to verbalize home meds.
--- NOTE | 2023-09-26 01:21 | PC.NURSE ---
Pt A&Ox4, reports slight headache, declined Tylenol at this time. Pt one staff stand by assist to bedside commode. VSS. Pt will be transferred to room 444, Pt and aware of plan.
--- NOTE | 2023-09-26 07:00 | CA_ITS ---
Transthoracic Echocardiogram Patient (Last, First, Middle): Candelaria Cedillo G Gender: Female Date of : 1960 Age: 63 Procedure Date: 09/26/2023 Procedure Type: Transthoracic [place] [facility] [place]: 167.64 cm Weight: 85.73 kg BSA: 1.95 m2 Heart Rate: bpm BP: 129 / 91 mmHg Portfolio Specialist: TO Referring MD: Arnie Loyola MD Flame Degreaser: Tay Priest MD Symptoms: syncope, history of Study Quality: Fair/Contrast ECG Rhythm: Sinus Conclusions: - 1. Normal LV ejection fraction of 60-65% with grade 1 diastolic dysfunction 2. Sjgl-al-eglxfybu aortic stenosis 3. Normal RV systolic pressure 4. Upper limits of normal ascending aortic size 5. No pericardial effusion Findings Procedure Information Contrast agent, definity, is being given per protocol without apparent complications. Left Ventricle Normal left ventricular size, thickness, and systolic function. The visually estimated ejection fraction is between 60-65%. Spectral Doppler is indicative of an impaired relaxation filling pattern. E/E prime ratio is <8, consistent with normal filling pressures. Evidence suggests grade I (mild) diastolic dysfunction. Right Ventricle Normal right ventricular cavity size and systolic function. Atria The left atrium is normal in size. There is no evidence of interatrial shunt. The right atrium is normal in size. Aortic Valve There is moderate calcification of the aortic valve. There is mild to moderate aortic valve stenosis. The peak aortic gradient is 24 mmHg.The mean gradient is 13 mmHg. The aortic valve area is 1.41 cm2. There is no aortic valve regurgitation. Mitral Valve Normal mitral valve structure and function. There is trace mitral valve regurgitation. There is no mitral valve stenosis. Pulmonic Valve The pulmonic valve is likely normal. Tricuspid Valve Normal tricuspid valve structure. There is mild tricuspid valve regurgitation. The right ventricular systolic pressure is normal. The right ventricular systolic pressure is 30 mmHg. Normal right atrial pressure. There is no evidence of pulmonary hypertension. Great Vessels The pulmonary artery was not well visualized. Venous The inferior vena cava is normal in size and collapses greater than 50% with inspiration. Pericardium/Pleural There is no evidence of pericardial effusion. Measurements 2D Linear Measurements IVSd: 1.14 0.6-0.9/0.6-1.0 cm LVIDd: 4.24 3.9-5.3/4.2-5.9 cm LVIDd Index: 2.17 2.4-3.2/2.2-3.1 cm/m2 LVIDs: 2.41 2.0-3.6 cm LVPWd: 1.06 0.7-1.1 cm LA Diam: 3.40 2.7-3.8/3.0-4.0 cm LAIDs Index: 1.74 1.5-2.3 cm/m2 LV Mass: 198.50 67-162/88-224 g LV Mass Index: 101.79 43-95/49-115 g/m2 LVOT Diam: 2.20 3.0+(-)1.3 cm 2D Systolic Function EF 4C: 58.70 >55% EF 2C: 60.50 >55% EF BiP: 60.70 >55% Mitral Valve MV Pk E: 0.70 MV PK A: 0.77 MV Decel Time: 225.00 E/A: 0.90 E'Lateral: 8.27 E'Medial: 7.18 E/E' Med: 9.70 E/E' Lat: 8.40 PHT: 66.00 MVA PHT: 3.33 Decel [place]: 3.10 Aortic Valve AoV Pk Rajendra: 2.44 AoV Mn Rajendra: 1.68 AoV VTI: 0.58 AoV Pk Grad: 24.00 Aov Mn Grad: 13.00 PRISCILA Cont.VTI: 1.41 LVOT LVOT Pk Rajendra: 1.03 LVOT Mn Rajendra: 0.77 LVOT VTI: 0.21 LVOT Pk Grad: 4.00 LVOT Mn Grad: 3.00 LVOT Diam: 2.20 LVOT Area: 3.80 Diastolic Function MV Pk E: 0.70 MV Pk A: 0.77 E/A: 0.90 E'Medial: 7.18 E/E' Med: 9.70 E' Laterial: 8.27 E/E' Lat: 8.40 Right Ventricle TAPSE (mm): 25.40 TVS' Rajendra: 16.90 Tricuspid Valve TR Pk Rajendra: 2.59 TR Pk Grad: 27.00 RA Press: 3.00 RVSP: 30.00 Great Vessels Aorta Sinus of Valsalva: 3.18 2.0-3.[address] [place]: 2.47 1.7-3.4 cm Ao Asc: 3.50 2.1-3.4 cm Ao Arch: 2.60 Updated in Other Vendor System with Status of Final Tay Priest MD electronically signed on 09/27/2023 12:31:32 PM with status of Final
[2023-09-26 07:23] LABS: MANUAL DIFF FLAG NO
[2023-09-26 07:34] LABS: Basophils Percent Auto 0.4 % (0-2); Eosinophils Absolute Auto 0.1 X10*3/uL (0.0-0.4); Eosinophils Percent Auto 1.2 % (0-4); Hematocrit 37.8 % (37.0-47.0); Hemoglobin 12.5 g/dl (12.0-16.0); Imm Gran Abs Auto 0.01 X10*3/uL (0.00-0.03); Imm Gran Pct Auto 0.1 % (0.0-0.4); Lymphocytes Absolute Auto 2.5 X10*3/uL (1.2-4.9); Lymphocytes Percent Auto 34.2 % (20-40); Mean Corpuscular HGB Conc 33.1 g/dl (31.0-35.0); Mean Corpuscular Volume 87.7 fL (80.0-98.0); Mean Platelet Volume 11.6 fL (9.4-12.3); Monocytes Absolute Auto 0.6 X10*3/uL (0.1-1.2); Monocytes Percent Auto 7.8 % (2-11); Neutrophils Absolute Auto 4.1 x10*3/uL (2.0-8.3); Neutrophils Percent Auto 56.3 % (45-73); Platelet Count 236 X10*3/uL (160-400); Red Blood Count 4.31 X10*6/uL (4.20-5.50); Red Cell Distribution Width 13.1 % (11.0-16.0); White Blood Count 7.3 X10*3/uL (4.8-10.8)
[2023-09-26 07:45] LABS: Anion Gap 11 (12-20); Blood Urea Nitrogen 15 mg/dL (9-16); Carbon Dioxide 26 mmol/L (22-29); Chloride 110 mmol/L (96-108); Creatinine Clr Calc Pharmacy 75.7; Estimated Glomerular Filt Rate > 60; Glucose Random 98 mg/dL (60-115); Potassium 4.1 mmol/L (3.3-5.1); Sodium 143 mmol/L (135-145)
--- NOTE | 2023-09-26 08:22 | MHC.CM.PN ---
09/26/23 08:18 - Case Mgmt Progress Note by Naomy Statonue Acct Num: [id number] : 05/20/1943 Patient Age: 80 CM met with Patient at bedside and addressed MAYORGA with her, providing Patient with the original and a copy has been placed on the chart. 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 Home/self care is the goal and CM has initiated and will follow for dc planning. PCP is Dr. Horner from [facility]. Initialized on 09/26/23 08:18 - END OF NOTE
--- NOTE | 2023-09-26 08:26 | PHA.MEDREC ---
Pharmacy Consult ? Medication Reconciliation Pharmacy has completed the medication reconciliation with the patient. Pt confirmed med list, OTC items added per patient .
--- NOTE | 2023-09-26 10:09 | P.DS_ITS ---
DS: Providers Provider Date of Service: 09/26/23 Date of admission: 09/25/23 23:29 Primary care physician: Unknown Physician Consults: 09/26/23 08:46 Consult to Cardiology Routine Consulting Provider: [facility] [place] [facility] Reason for consultation: syncope, echo sep 2022 with mild DS: Diagnosis Discharge Diagnosis (1) Syncope: Status: Acute DS: Summary Hospital Course Hospital Course: from initial hpi: 63-year-old female with pertinent history of essential hypertension, gastroesophageal reflux disease, mixed hyperlipidemia who presents to the emergency department for evaluation of syncope. Patient states she donated blood on the day of presentation. Patient was watching TV in the evening when she stood up to go to the kitchen. As she stood up, patient states she got dizzy and felt like she would pass out. Also had an episode of sweating and nausea. The found that the patient was passed out in the chair. It lasted for about 5 minutes. No rhythmic jerking movement of extremities, no tongue bite. No confusion after the syncopal episode. Patient states she has donated blood before but this has never happened. No chest discomfort or palpitations. No fever, chills, shortness of breath, abdominal pain, changes in urinary or bowel habits. hospital course: Patient was observed after syncopal event. No events on telemetry. Likely this was orthostatic hypotension. Due to history of mild aortic stenosis was seen by Cardiology who felt this was unlikely to be etiology. Echo was done, preliminarily no significant change in aortic stenosis, official results should be followed up as outpatient. For hypertension patient will restarted on losartan on discharge. For hyperlipidemia will continue on Zetia. Time Attestation Discharge coordination time: Greater than 30 minutes Quality: Safe Use of Opioids Does Pt have an Active Cancer Diagnosis on the Problem List?: No Quality: Stroke Does the patient have a stroke diagnosis?: No Physical Exam Vital Signs: Vital Signs: Last Vital Signs Temp 96.8 F 09/26/23 07:18 Pulse 76 09/26/23 08:13 Resp 18 09/26/23 07:18 BP 129/91 H 09/26/23 08:13 Pulse Ox 100 09/26/23 07:18 O2 Del Method Room Air 09/26/23 07:18 BMI result Body Mass Index 30.5 General: AO X 3, no acute distress Resp: CTA bilateral, no accessory muscles used CVS: S1,S2,RRR, murmur GI: soft, non tender, non distended Neuro: motor grossly intact, alert Psych: appropriate affect, appropriate insight DS: Data Data Completed and Pending Labs on day of discharge: Laboratory Results - last 24 hr 09/25/23 09/25/23 09/25/23 20:24 21:22 21:51 WBC 8.0 RBC 4.57 Hgb 13.5 Hct 39.4 MCV 86.2 MCH 29.5 MCHC 34.3 RDW 12.9 Plt Count 241 MPV 11.3 Immature Gran % (Auto) 0.5 H Neut % (Auto) 48.8 Lymph % (Auto) 41.5 H [place] % (Auto) 7.3 Eos % (Auto) 1.4 Baso % (Auto) 0.5 Lymph # (Auto) 3.3 [place] # (Auto) 0.6 Eos # (Auto) 0.1 Baso # (Auto) 0.0 Abs Immat Gran (auto) 0.04 H Absolute Neuts (auto) 3.9 Absolute Nucleated RBC 0.000 Nucleated RBC % (auto) 0.0 PT 11.6 INR 1.0 APTT 30.0 D-Dimer High Sensitivty 155 Sodium 139 Potassium 4.1 Chloride 106 Carbon Dioxide 24 Anion Gap 13 BUN 18 H Creatinine 1.10 Estim Creat Clear Calc 58.5 Estimated GFR 50 Random Glucose 156 H Calcium 9.3 Magnesium 2.1 Troponin I High Sens < 2.7 09/26/23 06:45 WBC 7.3 RBC 4.31 Hgb 12.5 Hct 37.8 MCV 87.7 MCH 29.0 MCHC 33.1 RDW 13.1 Plt Count 236 MPV 11.6 Immature Gran % (Auto) 0.1 Neut % (Auto) 56.3 Lymph % (Auto) 34.2 [place] % (Auto) 7.8 Eos % (Auto) 1.2 Baso % (Auto) 0.4 Lymph # (Auto) 2.5 [place] # (Auto) 0.6 Eos # (Auto) 0.1 Baso # (Auto) 0.0 Abs Immat Gran (auto) 0.01 Absolute Neuts (auto) 4.1 Absolute Nucleated RBC 0.000 Nucleated RBC % (auto) 0.0 PT INR APTT D-Dimer High Sensitivty Sodium 143 Potassium 4.1 Chloride 110 H Carbon Dioxide 26 Anion Gap 11 L BUN 15 Creatinine 0.85 Estim Creat Clear Calc 75.7 Estimated GFR > 60 Random Glucose 98 Calcium 9.0 Magnesium Troponin I High Sens Discharge Plan Discharge Anticipated Discharge Date/Time: 09/26/23 10:08 Patient Disposition: Home, Self-Care Discharge Diagnosis: syncope - likely orthostatic hypotension Referrals: Physician,Unknown J [Primary Care Provider] - 1 Week Discharge Medications: Continued olmesartan 5 mg tablet 10 mg PO DAILY 30 Days Qty: 60 5RF ascorbic acid (vitamin C) [Vitamin C] 500 mg Tablet 500 mg PO DAILY ezetimibe 10 mg tablet 10 mg PO BEDTIME magnesium oxide 400 mg magnesium Tablet 400 mg PO DAILY omeprazole 20 mg capsule,delayed release(DR/EC) 20 mg PO DAILY multivitamin [Daily Value] Tablet 1 tab PO DAILY Discharge Orders: Discharge Order (Routine); Ordered 09/26/23 Ordered By: Arnie Loyola Diet: Advance to usual diet Activity on Discharge: As tolerated Stand Alone Forms: Patient Portal Discharge page Care Plan Goals: avoid syncope Health Concerns: syncope Plan of Treatment: hydration, follow up official echo results Assessment: see above
--- NOTE | 2023-09-26 10:09 | MHC.CM.PN ---
Per ROUNDS discussion, Patient will be medically cleared for dc to home today, self care.
--- NOTE | 2023-09-26 10:53 | PM.CNCAR ---
History of Present Illness History of Present Illness Date of Service: 09/26/23 Requesting physician: Arnie Loyola Consult reason: other (Syncope) Chief complaint: syncope Narrative: I was consulted to see Candelaria in cardiology consultation today for syncopal episode. She was in a routine state of health yesterday event for donating blood. Donated a point of blood. She says she was drinking the water whole day. She then went home and will resting and was still hydrating. Patient was then sitting and watching TV and she got up and got lightheaded, got nauseous. She got off warm and she felt like she was going to faint. She does not recall after that and found her sitting and patient had lost consciousness. There was no clear epileptic motions. No bowel bladder incontinence. No tongue bites. Patient was then brought to the emergency room. She has never had these symptoms in the past. She has never had any syncopal episode in the past. Brought to the hospital and admitted overnight. She was given IV fluids. She feels well today. No overnight arrhythmias detected. Review of Systems Constitutional: Constitutional: Reports no additional constitutional complaints Eyes: Eyes: Reports no additional eye complaints Cardiovascular: Cardiovascular: Denies chest pain, Denies syncope, Denies leg edema, Reports lightheadedness, Reports Loss of Consciousness, Denies palpitations and Denies dyspnea Respiratory: Respiratory: Reports no additional respiratory complaints and Denies dyspnea Gastrointestinal: Gastrointestinal: Reports nausea Genitourinary: Genitourinary: Reports no additional female genitourinary complaints Musculoskeletal: Musculoskeletal: Reports no additional musculoskeletal complaints Integumentary/Breasts: Skin/Breast: Reports system reviewed and no additional complaints, except as docu Neurologic: Reports system reviewed and no additional complaints, except as documented and Denies syncope Psychiatric: Psychiatric: Reports no additional psychiatric complaints Endocrine: Endocrine: Denies palpitations [facility] Past Medical History Medical History Lumbar radiculitis Hyperlipidemia HTN (hypertension) Family History Family History Father Diabetes Hx of heart artery stent Pacemaker Mother No problems noted. Brother No problems noted. Brother No problems noted. Brother No problems noted. Sister No problems noted. Sister Breast cancer Sister No problems noted. Sister No problems noted. Daughter Family history of thyroid problem Daughter No problems noted. Daughter No problems noted. Surgical History Surgical History Hx laparoscopic cholecystectomy History of carpal tunnel surgery of left wrist History of carpal tunnel surgery of right wrist H/O section Social History Social History Alcohol intake: current Alcohol intake frequency: holidays/special occasions only Alcohol type: beer Patient Tobacco Use Status: Never used Tobacco Smoked in Last 30 Days: No Use of substances other than those prescribed or required for medical reasons: No Currently Displaying Signs/Symptoms of Drug Intoxication Withdrawal: No Advance Directives: No Advance Directives Information Provided: No Nutrition Risks: No Nutritional Risk Patient : No service: No Meds Allergies Allergy/AdvReac Type Severity Reaction Status Date / Time acetaminophen [From VICODIN] Allergy Unknown LOW Verified 09/26/23 00:51 BP/NAUSEA hydrocodone [From VICODIN] Allergy Unknown NAUSEA/LOW Verified 09/26/23 00:51 BP oxycodone [From PERCOCET] Allergy Unknown LOW Verified 09/26/23 00:51 BP/NAUSEA tramadol [TRAMADOL] Allergy Unknown NAUSEA/LOW Verified 09/26/23 00:51 BP, hypotension rosuvastatin AdvReac Severe Muscle Pain Verified 09/26/23 00:51 simvastatin AdvReac Severe Muscle Pain Verified 09/26/23 00:51 Statin AdvReac Severe Severe Uncoded 12/01/22 15:02 joint/muscle pain Active Medications: Current Medications Acetaminophen (Acetaminophen 325 Mg Tablet) 650 mg PO Q6H PRN PRN Reason: Pain, Mild (Pain Scale 1-3) Enoxaparin Sodium (Enoxaparin Sodium 40 Mg/0.4 Ml Syringe) 40 mg SUBCUT Q24H [facility] Last Admin: 09/26/23 01:07 Dose: 40 mg Melatonin (Melatonin 3 Mg Tablet) 6 mg PO BEDTIME PRN PRN Reason: Insomnia Ondansetron HCl (Ondansetron Hcl 4 Mg/2 Ml Vial) 4 mg IVPUSH Q8H PRN PRN Reason: Nausea and Vomiting Sodium Chloride (0.9 % Sodium Chloride Flush 3 Ml Syringe) 3 ml IVFLUSH QSHIFT [facility] Last Admin: 09/26/23 08:45 Dose: 3 ml Home Medications Medication Instructions Recorded Confirmed Last Taken Type omeprazole 20 mg capsule,delayed 20 mg PO DAILY 07/06/20 09/26/23 Unknown History release multivitamin (Daily Value tablet) 1 tab PO DAILY 05/21/23 09/26/23 Unknown History ascorbic acid (vitamin C) 500 mg 500 mg PO DAILY 09/26/23 09/26/23 Unknown History tablet (Vitamin C) ezetimibe 10 mg tablet 10 mg PO BEDTIME 09/26/23 09/26/23 Unknown History magnesium oxide 400 mg PO DAILY 09/26/23 09/26/23 Unknown History Physical Exam Vital Signs: Vital Signs: Last Vital Signs Temp 96.8 F 09/26/23 07:18 Pulse 76 09/26/23 08:13 Resp 18 09/26/23 07:18 BP 129/91 H 09/26/23 08:13 Pulse Ox 100 09/26/23 07:18 O2 Del Method Room Air 09/26/23 07:18 BMI result Body Mass Index 30.5 Const: General: cooperative, comfortable, no acute distress, alert, awake and Physically active Nutritional Appearance: overweight Orientation/consciousness: patient oriented x3 Limitations: no limitations HEENT: Head: Yes normocephalic and Yes atraumatic Neck: Neck: Yes trachea midline, Yes supple and Yes no JVD Resp: Effort & Inspection: normal respiratory effort Auscultation: clear to auscultation bilaterally Cardio: Jugular venous distension: no JVD Palpation: normal PMI Rate: regular rate Rhythm: regular rhythm Heart sounds: S1 normal heart sound present, S2 normal heart sound present, no click, no gallops, no murmurs and no rubs GI: Auscultation: normal bowel sounds Skin: General skin exam: no rashes or lesions noted Neuro: General: patient oriented x3 and no focal motor deficits Extrem: General: Yes no clubbing, cyanosis or edema Psych: Appearance: grossly normal Objective Labs and Meds 09/26/23 06:45 09/26/23 06:45 Lab results: Laboratory Results - last 24 hr 09/25/23 09/25/23 09/25/23 20:24 21:22 21:51 WBC 8.0 RBC 4.57 Hgb 13.5 Hct 39.4 MCV 86.2 MCH 29.5 MCHC 34.3 RDW 12.9 Plt Count 241 MPV 11.3 Immature Gran % (Auto) 0.5 H Neut % (Auto) 48.8 Lymph % (Auto) 41.[address] [place] % (Auto) 7.3 Eos % (Auto) 1.4 Baso % (Auto) 0.5 Lymph # (Auto) 3.3 [place] # (Auto) 0.6 Eos # (Auto) 0.1 Baso # (Auto) 0.0 Abs Immat Gran (auto) 0.04 H Absolute Neuts (auto) 3.9 Absolute Nucleated RBC 0.000 Nucleated RBC % (auto) 0.0 PT 11.6 INR 1.0 APTT 30.0 D-Dimer High Sensitivty 155 Sodium 139 Potassium 4.1 Chloride 106 Carbon Dioxide 24 Anion Gap 13 BUN 18 H Creatinine 1.10 Estim Creat Clear Calc 58.5 Estimated GFR 50 Random Glucose 156 H Calcium 9.3 Magnesium 2.1 Troponin I High Sens < 2.7 09/26/23 06:45 WBC 7.3 RBC 4.31 Hgb 12.5 Hct 37.8 MCV 87.7 MCH 29.0 MCHC 33.1 RDW 13.1 Plt Count 236 MPV 11.6 Immature Gran % (Auto) 0.1 Neut % (Auto) 56.3 Lymph % (Auto) 34.2 [place] % (Auto) 7.8 Eos % (Auto) 1.2 Baso % (Auto) 0.4 Lymph # (Auto) 2.5 [place] # (Auto) 0.6 Eos # (Auto) 0.1 Baso # (Auto) 0.0 Abs Immat Gran (auto) 0.01 Absolute Neuts (auto) 4.1 Absolute Nucleated RBC 0.000 Nucleated RBC % (auto) 0.0 PT INR APTT D-Dimer High Sensitivty Sodium 143 Potassium 4.1 Chloride 110 H Carbon Dioxide 26 Anion Gap 11 L BUN 15 Creatinine 0.85 Estim Creat Clear Calc 75.7 Estimated GFR > 60 Random Glucose 98 Calcium 9.0 Magnesium Troponin I High Sens Assessment and Plan (1) Syncope: Status: Acute Plan Syncope which appears to be either orthostatic or vasovagal in nature related to intravascular volume depletion after blood donation. Symptoms highly suggestive of that. Symptoms have improved. We discussed about mechanism of orthostatic syncope and/or vasovagal syncope. Advised to maintain adequate hydration. She has history of hypertension would avoid significant salt intake. Will obtain Holter monitor as outpatient. Echocardiogram was being performed while I was interviewing the patient. Will review it once images available to review. At this point time I think patient can be discharged home. Will follow up in the clinic after testing. Thank you for allowing me to partake in her care Procedures Date of Service Date of Service: 09/26/23
== END 2023-09-26 14:16 | disposition home or self-care (01) ==
LOC: HO.ED 20:45 → HO.EDOVER 23:59 → HO.IMC 09-26 00:17
PROVIDERS: Admitting Provider Student in an Organized Health Care Education/Training Program; Emergency Provider Internal Medicine; PCP Internal Medicine; Visit Provider Internal Medicine
DX: R55 Syncope and collapse (principal); I10 Essential (primary) hypertension; K21.9 Gastro-esophageal reflux disease without esophagitis; E78.2 Mixed hyperlipidemia; R11.0 Nausea; R61 Generalized hyperhidrosis; Z79.899 Other long term (current) drug therapy
CPT/HCPCS: 36415; 80048; 83735; 84484; 85025; 85379; 85610; 85730; 93005; 93306; 96360; 96361; 96372; 99222; 99285; J1650; Q9957

== ENCOUNTER → 2023-09-25 19:59 | Outpatient (BNV) | payer OTHER, SELFPAY | PROVIDERS: Admitting Provider Student in an Organized Health Care Education/Training Program; Emergency Provider Internal Medicine; Visit Provider Internal Medicine Cardiovascular Disease | DX: R00.1 Bradycardia, unspecified (principal); R94.31 Abnormal electrocardiogram [ECG] [EKG] | CPT/HCPCS: 93010 ==

== ENCOUNTER → 2023-09-25 20:30 | Outpatient (BNV) | payer OTHER, SELFPAY | PROVIDERS: Emergency Provider Internal Medicine; Visit Provider Student in an Organized Health Care Education/Training Program | DX: R55 Syncope and collapse (principal) | CPT/HCPCS: 99222; 99239 ==

== ENCOUNTER 2023-09-25 23:29 | Outpatient (BNV) | payer OTHER, SELFPAY | END 2023-09-26 07:00 | PROVIDERS: Admitting Provider Student in an Organized Health Care Education/Training Program; Emergency Provider Internal Medicine; PCP Internal Medicine; Visit Provider Internal Medicine Cardiovascular Disease | DX: I35.0 Nonrheumatic aortic (valve) stenosis (principal) | CPT/HCPCS: 93306 ==

== ENCOUNTER → 2023-09-25 23:29 | Outpatient (BNV) | payer OTHER, SELFPAY | PROVIDERS: Admitting Provider Student in an Organized Health Care Education/Training Program; Emergency Provider Internal Medicine; Visit Provider Internal Medicine Cardiovascular Disease | DX: R55 Syncope and collapse (principal) | CPT/HCPCS: 99222 ==

== ENCOUNTER → 2023-10-08 14:46 | Outpatient (REF) | payer OTHER, SELFPAY ==
--- NOTE | 2023-10-08 14:57 | HM_ITS ---
Conclusion: 1. Patient was monitored for total period of 2 days and 23 hours 2. Baseline was normal sinus rhythm with average heart of 68 beats per minute 3. No significant arrhythmias or pauses noted 4. Patient reported 1 event, complain of lightheadedness that correlated with sinus tachycardia MTDD
== END ==
LOC: HO.CARD 14:46
PROVIDERS: PCP Internal Medicine; Visit Provider Internal Medicine Cardiovascular Disease
DX: R55 Syncope and collapse (principal)
CPT/HCPCS: 93242

== ENCOUNTER → 2023-10-08 14:57 | Outpatient (BNV) | payer OTHER, SELFPAY | PROVIDERS: PCP Internal Medicine; Visit Provider Internal Medicine Cardiovascular Disease | DX: R00.0 Tachycardia, unspecified (principal) | CPT/HCPCS: 93244 ==

== ENCOUNTER 2023-10-29 07:42 | Outpatient (REF) | payer OTHER, SELFPAY ==
--- NOTE | ~2023-10-29 | MM_ITS ---
EXAMINATION: MM SCREENING DIGITAL BREAST TOMOSYNTHESIS, BILATERAL CLINICAL INFORMATION: Screening. Asymptomatic. COMPARISON: Mammography: This study is compared with prior exams dating back to 2016. TECHNIQUE: Digital breast tomosynthesis is performed in both the craniocaudal and mediolateral oblique views along with computer-aided detection (CAD). Synthesized 2D images are generated from the tomosynthesis. FINDINGS: There are scattered areas of fibroglandular density (ACR BI-RADS breast composition Category b). There are no significant masses, abnormal calcifications, or other abnormalities. There are 2 tissue markers in the right breast from prior benign percutaneous biopsies. MM/MM tomosynthesis screening BI IMPRESSION: No mammographic evidence of malignancy. ASSESSMENT: BI-RADS BI-RADS 2 - Benign Findings RECOMMENDATION: Routine annual mammography screening. 1 year F/U This examination should not preclude the clinical evaluation of a suspicious palpable abnormality. This patient's information was entered into a reminder system with a target due date for their next mammogram.
== END 2023-10-29 07:43 | disposition home or self-care (01) ==
LOC: HO.MAMMO 07:42
PROVIDERS: PCP Internal Medicine; Visit Provider Internal Medicine
DX: Z12.31 Encounter for screening mammogram for malignant neoplasm of breast (principal)
CPT/HCPCS: 77063; 77067

== ENCOUNTER → 2023-10-29 07:45 | Outpatient (BNV) | payer OTHER, SELFPAY | PROVIDERS: PCP Internal Medicine; Visit Provider Radiology Diagnostic Radiology | DX: Z12.31 Encounter for screening mammogram for malignant neoplasm of breast (principal) | CPT/HCPCS: 77063; 77067 ==

== ENCOUNTER 2023-10-30 14:48 | Outpatient (AMB) | payer OTHER, SELFPAY ==
[2023-10-30 15:06] VITALS: BP 120/82; PULSE 73; BMI 31.5
--- NOTE | 2023-10-30 15:06 | MHC.OFFVIS ---
Intake Vital Signs 10/30/23 15:06 Height 5 ft 6 in Weight 194 lb 14.218 oz BMI 31.5 BP 120/82 Blood Pressure Location Lt brachial Position Sitting Pulse 73 Pulse Source Pulse Oximeter Intake Visit Reasons: [facility] [place] / holter syncope and collapse Contact Center Associate Required: No Allergies acetaminophen [From VICODIN] Allergy (Unknown, Verified 10/30/23 15:08) LOW BP/NAUSEA hydrocodone [From VICODIN] Allergy (Unknown, Verified 10/30/23 15:08) NAUSEA/LOW BP oxycodone [From PERCOCET] Allergy (Unknown, Verified 10/30/23 15:08) LOW BP/NAUSEA tramadol [TRAMADOL] Allergy (Unknown, Verified 10/30/23 15:08) NAUSEA/LOW BP, hypotension rosuvastatin Adverse Reaction (Severe, Verified 10/30/23 15:08) Muscle Pain simvastatin Adverse Reaction (Severe, Verified 10/30/23 15:08) Muscle Pain Statin Adverse Reaction (Severe, Uncoded 10/30/23 15:08) Severe joint/muscle pain Medication List - Last Reconciled 10/30/23 by BORIS Ibarra ascorbic acid (vitamin C) (Vitamin C) 500 mg PO DAILY ezetimibe 10 mg PO BEDTIME magnesium oxide 400 mg PO DAILY multivitamin (Daily Value tablet) 1 tab PO DAILY olmesartan 10 mg (2 x 5 mg) PO DAILY 30 days omeprazole 20 mg PO DAILY HPI [facility] [place] / holter syncope and collapse HPI Details Candelaria is a 63-year-old female past medical history of hypertension, hyperlipidemia who was recently seen in the emergency room following a syncopal event at home. She had an echocardiogram and Holter monitor and now presents for follow-up. Today she reports she has had not had any recurrent syncopal events. The day of the event she had given blood and was home sitting on her couch. Then she got up to have something to eat and then felt lightheaded. She walked back to the living room and had syncope. Her significant other called EMS. She was transported to the hospital for evaluation and kept overnight. She does not get symptoms of chest discomfort at rest or with activity. No shortness of breath, PND, orthopnea or edema. She takes all meds as directed. [facility] Medical History Lumbar radiculitis Hyperlipidemia HTN (hypertension) Surgical History Hx laparoscopic cholecystectomy History of carpal tunnel surgery of left wrist History of carpal tunnel surgery of right wrist H/O section Family History Father Diabetes Hx of heart artery stent Pacemaker Mother No problems noted. Brother No problems noted. Brother No problems noted. Brother No problems noted. Sister No problems noted. Sister Breast cancer Sister No problems noted. Sister No problems noted. Daughter Family history of thyroid problem Daughter No problems noted. Daughter No problems noted. Social History Alcohol intake: current Alcohol intake frequency: holidays/special occasions only Alcohol type: beer Patient Tobacco Use Status: Never used Tobacco service: No Review of Systems Const All systems reviewed & are unremarkable except as noted in HPI and below ENT Denies dizziness Card Denies chest pain, Denies chest pain at rest, Denies chest pain with activity, Denies rapid heart rate, Denies pedal edema, Denies edema, Denies leg edema, Denies lightheadedness, Denies palpitations, Denies dyspnea, Denies dyspnea on exertion and Denies orthopnea Resp Denies cough, Denies dyspnea and Denies dyspnea on exertion GI Denies hematochezia and Denies change in stool character Musc Denies abnormal gait, Denies limited range of motion, Denies muscle cramps, Denies muscle weakness, Denies numbness, Denies radiating pain into limb, Denies stiffness and Denies tingling Neuro Denies abnormal gait, Denies dizziness, Denies numbness and Denies tingling Endo Denies palpitations Physical Exam Vital Signs: Last Vital Signs Pulse 73 10/30/23 15:06 BP 120/82 10/30/23 15:06 BMI result Body Mass Index 31.5 Const General: cooperative, healthy appearing, comfortable and no acute distress Orientation/consciousness: patient oriented x3 HEENT Head: Yes normal to inspection Neck Neck: Yes normal visual inspection Resp Effort & Inspection: normal respiratory effort Auscultation: clear to auscultation bilaterally, no crackles, no rales, no rhonchi and no wheezes Cardio Jugular venous distension: no JVD Rate: regular rate Rhythm: regular rhythm Heart sounds: S1 normal heart sound present, S2 normal heart sound present, no murmurs and no rubs Neuro General: patient oriented x3 Extrem General: Yes normal to inspection, No no pedal edema and No calf tenderness Psych Appearance: grossly normal Mental Status: mental status grossly normal Speech and movement: Normal speech and movement present Assessment & Plan Assessment & Plan (1) Syncope: Code(s): R55 - Syncope and collapse Plan: Recent syncopal event at home. Event followed giving blood earlier in the day. ER evaluation without significant findings. She was admitted overnight for observation. An echocardiogram showed EF 60-65%, [id number] , normal RV. An outpatient Holter monitor was done on 10/08/2023 for 3 days which showed sinus rhythm with average heart rate 68. She did go for a tilt-table test on 10/09/2023 which confirms orthostatic hypotension. Test results reviewed with her in detail. She has not had any recurrent events. She does report having periodic lightheadedness at times. Instructed to increase her fluid intake. She periodically checks her blood pressure at home. It has been normal range. If her blood pressure starts to run more low she is instructed to reduce her antihypertensive olmesartan by half. She tells me she has lost weight in recent months intentionally. Recommended the use of compression stockings. Use caution when going sitting to standing. Cardiology follow-up in 6 months, sooner if needed. (2) HTN (hypertension): Code(s): I10 - Essential (primary) hypertension Plan: As above. Currently in the normal range. (3) Hyperlipidemia: Code(s): E78.5 - Hyperlipidemia, unspecified Plan: History of hyperlipidemia and intolerant to statins. She is on Zetia 10 mg daily. On last visit Dr. Zayda mckee Vascepa patient states she never received it. She states that she had her lipids done by her PCP recently and they were improved. She has lost approximately 20 lb and this may explain improved numbers. Will obtain those results from her PCP. Discussed possible use of PCSK9 inhibitor with her and she is somewhat reluctant. (4) Aortic stenosis: Code(s): I35.0 - Nonrheumatic aortic (valve) stenosis Plan: Echocardiogram done 10/02/2022 showed early mild aortic stenosis. Echocardiogram done 09/26/2023 shows [id number] aortic stenosis with mean gradient 13 mmHg, aortic valve area 1.41 centimeter sq. Will plan for repeat echo 1 year from last. Due around September 26 2024 Plan Time spent on chart review, documentation, interview and assessment Coding Level of Care Code Est Pt Level 4 (94214) Diagnoses Syncope R55 HTN (hypertension) I10 Hyperlipidemia E78.5 Aortic stenosis I35.0 Time Spent (min) 28
== END 2023-10-30 15:53 | disposition home or self-care (01) ==
PROVIDERS: PCP Internal Medicine; Visit Provider Nurse Practitioner Family
DX: R55 Syncope and collapse (principal); I10 Essential (primary) hypertension; E78.5 Hyperlipidemia, unspecified; I35.0 Nonrheumatic aortic (valve) stenosis
CPT/HCPCS: 99214

== ENCOUNTER → 2023-10-30 14:48 | Outpatient (BNVA) | payer OTHER, SELFPAY | PROVIDERS: Visit Provider Nurse Practitioner Family ==

== ENCOUNTER → 2024-05-06 08:46 | Outpatient (REF) | payer OTHER, SELFPAY ==
--- NOTE | 2024-05-06 09:00 | CA_ITS ---
Transthoracic Echocardiogram Patient (Last, First, Middle): Candelaria Cedillo G Gender: Female Date of : 1960 Age: 64 Procedure Date: 05/06/2024 Procedure Type: Transthoracic Echocardiogram Location: OP Height: 167.64 cm Weight: 87.09 kg BSA: 1.97 m2 Heart Rate: bpm BP: 126 / 82 mmHg Operation Shift Supervisor: TO Referring MD: Tay Priest MD Symptoms: I35.0 - Nonrheumatic aortic (valve) stenosis Study Quality: Adequate w contrast ECG Rhythm: Sinus Conclusions: - The left ventricular systolic function is normal. The calculated ejection fraction is 61% by biplane method. - There is mild to moderate aortic valve stenosis. Findings Procedure Information Contrast agent, definity, is being given per protocol without apparent complications. Left Ventricle Normal left ventricular cavity size. There is normal left ventricular wall thickness. The left ventricular systolic function is normal. The calculated ejection fraction is 61% by biplane method. There is no evidence of regional wall motion abnormalities. Diastolic function is normal for age. Right Ventricle Normal right ventricular cavity size and systolic function. Atria Both atria are normal in size. Aortic Valve There is moderate calcification of the aortic valve. There is mild to moderate aortic valve stenosis. There is no aortic valve regurgitation. Mitral Valve The mitral valve appears normal. There is no mitral valve regurgitation. There is no mitral valve stenosis. Pulmonic Valve The pulmonic valve is likely normal. Tricuspid Valve There is mild tricuspid valve regurgitation. There is no evidence of pulmonary hypertension. Great Vessels The asc aorta is normal in size. Venous The inferior vena cava is normal in size and collapses greater than 50% with inspiration. Pericardium/Pleural There is no evidence of pericardial effusion. Prior Study Comparison No significant change compared to prior study dated: 09/26/2023. Measurements 2D Linear Measurements IVSd: 1.02 0.6-0.9/0.6-1.0 cm LVIDd: 4.68 3.9-5.3/4.2-5.9 cm LVIDd Index: 2.38 2.4-3.2/2.2-3.1 cm/m2 LVIDs: 2.94 2.0-3.6 cm LVPWd: 0.90 0.7-1.1 cm LA Diam: 3.40 2.7-3.8/3.0-4.0 cm LAIDs Index: 1.73 1.5-2.3 cm/m2 LV Mass: 192.39 67-162/88-224 g LV Mass Index: 97.66 43-95/49-115 g/m2 LVOT Diam: 2.20 3.0+(-)1.3 cm 2D Systolic Function EF 4C: 58.70 >55% EF 2C: 62.80 >55% EF BiP: 61.10 >55% Mitral Valve MV Pk E: 0.59 MV PK A: 0.69 MV Decel Time: 200.00 E/A: 0.80 E'Lateral: 6.09 E'Medial: 5.00 E/E' Med: 11.70 E/E' Lat: 9.60 PHT: 59.00 MVA PHT: 3.73 Decel [place]: 2.93 Aortic Valve AoV Pk Rajendra: 2.24 AoV Mn Rajendra: 1.48 AoV VTI: 0.59 AoV Pk Grad: 20.00 Aov Mn Grad: 10.00 PRISCILA Cont.VTI: 1.30 LVOT LVOT Pk Rajendra: 0.84 LVOT Mn Rajendra: 0.57 LVOT VTI: 0.20 LVOT Pk Grad: 3.00 LVOT Mn Grad: 1.00 LVOT Diam: 2.20 LVOT Area: 3.80 Diastolic Function MV Pk E: 0.59 MV Pk A: 0.69 E/A: 0.80 E'Medial: 5.00 E/E' Med: 11.70 E' Laterial: 6.09 E/E' Lat: 9.60 Right Ventricle TAPSE (mm): 22.20 TVS' Rajendra: 15.20 Tricuspid Valve TR Pk Rajendra: 2.59 TR Pk Grad: 27.00 RA Press: 3.00 RVSP: 30.00 Great Vessels Aorta Sinus of Valsalva: 3.23 2.0-3.[address] [place]: 2.52 1.7-3.4 cm Ao Asc: 3.50 2.1-3.4 cm Updated in Other Vendor System with Status of Final Julio Rodriguez MD electronically signed on 05/07/2024 11:10:38 AM with status of Final
[2024-05-06 11:37] LABS: Anion Gap 10 (12-20); Blood Urea Nitrogen 12 mg/dL (9-16); Calcium 9.4 mg/dL (8.4-10.2); Carbon Dioxide 30 mmol/L (22-29); Chloride 107 mmol/L (96-108); Estimated Glomerular Filt Rate 57; Glucose Random 104 mg/dL (60-115); Potassium 4.1 mmol/L (3.3-5.1); Sodium 143 mmol/L (135-145)
== END ==
LOC: HO.CARD 08:46
PROVIDERS: PCP Internal Medicine; Visit Provider Internal Medicine Cardiovascular Disease
DX: R00.2 Palpitations (principal); I10 Essential (primary) hypertension; I35.0 Nonrheumatic aortic (valve) stenosis
CPT/HCPCS: 36415; 80048; 93306; Q9957

== ENCOUNTER → 2024-05-06 09:00 | Outpatient (BNV) | payer OTHER, SELFPAY | PROVIDERS: PCP Internal Medicine; Visit Provider Internal Medicine | DX: I35.0 Nonrheumatic aortic (valve) stenosis (principal); I36.1 Nonrheumatic tricuspid (valve) insufficiency | CPT/HCPCS: 93306 ==

== ENCOUNTER 2024-05-13 14:48 | Outpatient (AMB) | payer OTHER, SELFPAY ==
[2024-05-13 14:51] VITALS: BP 130/80; PULSE 76; BMI 31.3
--- NOTE | 2024-05-13 14:51 | MHC.OFFVIS ---
Vital Signs 05/13/24 14:51 Height 5 ft 6 in Weight 194 lb 0.108 oz BMI 31.3 BP 130/80 Blood Pressure Location Lt brachial Position Sitting Pulse 76 Intake Visit Reasons: 6 mth f/up Intake Note: 6 month feeling ok Card Tape Converter Operator Required: No Allergies acetaminophen [From VICODIN] Allergy (Unknown, Verified 10/30/23 15:08) LOW BP/NAUSEA hydrocodone [From VICODIN] Allergy (Unknown, Verified 10/30/23 15:08) NAUSEA/LOW BP oxycodone [From PERCOCET] Allergy (Unknown, Verified 10/30/23 15:08) LOW BP/NAUSEA tramadol [TRAMADOL] Allergy (Unknown, Verified 10/30/23 15:08) NAUSEA/LOW BP, hypotension rosuvastatin Adverse Reaction (Severe, Verified 10/30/23 15:08) Muscle Pain simvastatin Adverse Reaction (Severe, Verified 10/30/23 15:08) Muscle Pain Statin Adverse Reaction (Severe, Uncoded 10/30/23 15:08) Severe joint/muscle pain Medication List - Last Reconciled 05/13/24 by Tay Priest MD ascorbic acid (vitamin C) (Vitamin C) 500 mg PO DAILY ezetimibe 10 mg PO BEDTIME multivitamin (Daily Value tablet) 1 tab PO DAILY olmesartan 5 mg PO DAILY omega-3 fatty acids (Super Daisy-3) 1,000 mg PO DAILY omeprazole 20 mg PO DAILY HPI Comments Details: Candelaria comes for follow-up. She has been doing well from cardiac perspective. Continues to walk without any symptoms. Recent echocardiogram shows [id number] aortic stenosis. Normal LV systolic function. Blood pressures been well controlled. Currently only on ezetimibe therapy, not on statins. No repeat lipid panel be done recently. Denies any prolonged irregular heartbeat. No lightheadedness, syncope. No heart failure symptoms. [facility] Medical History Lumbar radiculitis Hyperlipidemia HTN (hypertension) Surgical History Hx laparoscopic cholecystectomy History of carpal tunnel surgery of left wrist History of carpal tunnel surgery of right wrist H/O section Family History Father Diabetes Hx of heart artery stent Pacemaker Mother No problems noted. Brother No problems noted. Brother No problems noted. Brother No problems noted. Sister No problems noted. Sister Breast cancer Sister No problems noted. Sister No problems noted. Daughter Family history of thyroid problem Daughter No problems noted. Daughter No problems noted. Social History Alcohol intake: current Alcohol intake frequency: holidays/special occasions only Alcohol type: beer Patient Tobacco Use Status: Never used Tobacco service: No Review of Systems Const Denies chills, Denies fatigue, Denies fever(s), Denies frequent falls, Denies weakness, Denies weight gain and Denies weight loss ENT Denies dizziness Card Denies chest pain, Denies leg edema, Denies lightheadedness, Denies palpitations, Denies dyspnea, Denies dyspnea on exertion, Denies orthopnea and Denies other (loss of consciousness) Resp Denies cough, Denies dyspnea and Denies dyspnea on exertion GI Denies hematochezia and Denies change in stool character Musc Denies abnormal gait, Denies muscle weakness, Denies numbness, Denies radiating pain into limb and Denies tingling Neuro Denies abnormal gait, Denies dizziness, Denies frequent falls, Denies numbness, Denies tingling and Denies weakness Endo Denies fatigue and Denies palpitations Physical Exam Vital Signs: Last Vital Signs Pulse 76 05/13/24 14:51 BP 130/80 05/13/24 14:51 BMI result Body Mass Index 31.3 Const General: cooperative, healthy appearing, comfortable and no acute distress Orientation/consciousness: patient oriented x3 HEENT Head: Yes normal to inspection Neck Neck: Yes normal visual inspection Resp Effort & Inspection: normal respiratory effort Auscultation: clear to auscultation bilaterally, no crackles, no rales, no rhonchi and no wheezes Cardio Jugular venous distension: no JVD Rate: regular rate Rhythm: regular rhythm Heart sounds: S1 normal heart sound present, S2 normal heart sound present, Murmur heart sound present systolic mid, decrescendo and crescendo and no rubs Neuro General: patient oriented x3 Extrem General: Yes normal to inspection, No no pedal edema and No calf tenderness Psych Appearance: grossly normal Mental Status: mental status grossly normal Speech and movement: Normal speech and movement present Assessment & Plan Assessment & Plan (1) Aortic stenosis: Code(s): I35.0 - Nonrheumatic aortic (valve) stenosis Category: Medical Plan: Aortic stenosis which is [id number] without any significant clinical progression. Management of aortic stenosis was discussed. Should be on low-dose aspirin therapy. Advised the same. Needs aggressive lipid modification target goal LDL less than 70 mg/dL. Advised lipid panel near future to target further treatment options. Continue aggressive blood pressure control. Gradually progressive nature of aortic stenosis were discussed. Follow-up echocardiogram in 1 year's time. (2) HTN (hypertension): Code(s): I10 - Essential (primary) hypertension Category: Medical Plan: Hypertension which is currently well optimized on low-dose olmesartan therapy. Continue the same. Advised to monitor blood pressure at home maintain a log. Goal blood pressure less than 130/84. Low-salt diet was discussed. Advised to maintain activity level as tolerated. Advised to call me with any new symptoms. Follow up in the clinic in 1 year's time, sooner p.r.n.. Thank you for allowing me to partake in her care Orders: Orders CA echo transthoracic complete 1 Year Tay Priest MD I35.0 - Nonrheumatic aortic (valve) stenosis Lipid Panel Today Tay Priest MD I35.0 - Nonrheumatic aortic (valve) stenosis Medications: New aspirin (Ecotrin Low Strength) 81 mg PO DAILY 30 tabs 11RF Tay Priest MD Changed From olmesartan 10 mg (2 x 5 mg) PO DAILY 30 days 60 tabs 5RF To olmesartan 5 mg PO DAILY Mariah Becerril, BRAKE REPAIRER-C Coding Level of Care Code Est Pt Level 4 (77206) Diagnoses Aortic stenosis I35.0 HTN (hypertension) I10
== END 2024-05-13 15:33 | disposition home or self-care (01) ==
PROVIDERS: PCP Internal Medicine; Visit Provider Internal Medicine Cardiovascular Disease
DX: I35.0 Nonrheumatic aortic (valve) stenosis (principal); I10 Essential (primary) hypertension
CPT/HCPCS: 99214

== ENCOUNTER → 2024-05-13 14:48 | Outpatient (BNVA) | payer OTHER, SELFPAY | PROVIDERS: PCP Internal Medicine; Visit Provider Internal Medicine Cardiovascular Disease ==

== ENCOUNTER 2024-05-16 07:08 | Outpatient (REF) | payer OTHER, SELFPAY ==
[2024-05-16 08:32] LABS: Cholesterol 228 mg/dL (<200); HDL Cholesterol 42 mg/dL (>40); LDL Cholesterol Calculated 153 mg/dL (<100); Triglycerides 169 mg/dL (<150)
== END 2024-05-16 07:09 | disposition home or self-care (01) ==
LOC: HO.LAB 07:08
PROVIDERS: PCP Internal Medicine; Visit Provider Internal Medicine Cardiovascular Disease
DX: I35.0 Nonrheumatic aortic (valve) stenosis (principal)
CPT/HCPCS: 36415; 80061

== ENCOUNTER 2024-11-10 07:28 | Outpatient (REF) | payer OTHER, SELFPAY ==
--- OUTSIDE RECORDS SUMMARY | 2024-11-10 07:31 | XMS_ITS | Patient Health Record ---
[facility] Address [address] [facility] [place] [address] Care Team Providers Care Fulfillment Representative Name Role Phone Tiffany MUKHERJEE, Sophia Dennis Primary Care Provider Luis Francois Unavailable [phone] Allergies Allergen (clinical drug ingredient) Drug/Non Drug Allergy documented on EMR Reaction Allergy Type Onset Date Status general/spinal (uncoded) nausea Allergy Active acetaminophen / oxycodone Percocet lowers bp, nausea Drug Allergy Active Vicodin lowers bp, nausea Drug Allergy Active tramadol Tramadol Hives Drug Allergy Active Reason For Referral No Information Medications Medication SIG (Take, Route, Frequency, Duration) Notes Start Date End Date Status Venlafaxine HCl 37.5 MG 1 tablet with fo od Orally Once a day for 30 day(s) Active Night Splint AFO - L1930 as directed 12/01/2020 Active Multivitamin - as directed Orally O nce a day Active Simvastatin 20 MG 1 tablet in the even ing Orally Once a day for 30 day(s) Active Vitamin C Active Physical Therapy . . . 2-3x/week for 3- 4 weeks 12/01/2020 Active Voltaren 1 % as directed External ly apply bid to bunion for 30 days 12/01/2020 Active Omeprazole 20 MG as directed Orally O nce a day Active Calcium + D3 600-800 MG-UNIT 1 tablet with a meal Orally Once a day Active Olmesartan Medoxomil 20 MG 1 tablet Oral ly Once a day for 30 day(s) Active Immunizations Vaccine Route Administration Date Status Comme nts COVID-19 Pfizer BioNTech Vaccine Unknown 10/08/2020 Adm inistered 1# 09/17/20 Social History Tobacco Use: Social History Observation Description Date Details (start date - stop date) Never Smoker NA - NA Tobacco Use/Smoking Question Answer Notes Are you a: nonsmoker Alcohol Screen Question Answer Notes Did you have a drink containing alcohol in the p ast year? Yes Points 0 Interpretation Negative Tobacco use other than smoking: Question Answer Notes Are you an other tobacco user? No Problems Problem Type SNOMED Code ICD Code Onset Dates Problem Status W/U Status Risk Notes Problem Acquired hallux valgus (15979671) Hallux valgus (acquired), left foot (M20.12) Active confirmed Plan Of Treatment Pending Test Test Name Order Date X ray : Foot, left 3V 12/01/2020 Insurance Providers Payer Name Payer Address Payer Phone Subscriber Number Group Number Insured Name Patient Relationship to Insured Coverage Start Date Coverage End Date [facility] [address] [place] [address] [id number] Candelaria Cedillo Self - patient is the insured Medical (General) History Medical History History ICD Code Back,Hip,and Knee pain Cholesterol Depression Gall bladder problems High blood pressure Reflux ( GERD) Sciatica Chicken pox Surgical History Surgery Date(Month/Year) gall bladder 02/20/19 carpal tunnel surgery left and right
--- OUTSIDE RECORDS SUMMARY | 2024-11-10 07:31 | XMS_ITS | Continuity of Care Document ---
Author Organization [facility] Address [address] [facility] [address] [place] [id number] Insurance Providers Payer Plan Claims Address Claims Phone Policy Number Group Number Relation Employer Guarantor Name Guarantor Guarantor [place] [address] tel:[phone] [id number] [id number] Self Candelaria Cedillo [address] [place] [address] [facility] tel:[phone] Self Candelaria Cedillo 1960 [address] [place] [address] [facility], [address], [place] [address] tel:[phone] Self Candelaria Cedillo [address] [place] [id number] Problems Unknown Problems Results Test Value / Unit Interpretation Reference Ran Comp. Metabolic Panel (14)[[id number]]?Collected: 07/02/2024 04:31 PM?Specimen Received: 07/02/2024 05:00 AM?Source: [facility] Glucose [215319] 93 mg/dL 70-99 mg/dL BUN [843941] 13 mg/dL 8-27 mg/dL Creatinine [664548] 1.03 mg/dL H 0.57-1.0 0 mg/dL eGFR [083129] 61 mL/min/1.73 >59 mL/min/1 .73 BUN/Creatinine Ratio [202455] 13 - Sodium [960625] 140 mmol/L 134-144 mmol /L Potassium [848562] 5.0 mmol/L 3.5-5.2 m mol/L Chloride [801212] 101 mmol/L 96-106 mmo l/L Carbon Dioxide, Total [073823] 25 mmol/L 20-29 mmol/L Calcium [780202] 9.7 mg/dL 8.7-10.3 mg /dL Protein, Total [327501] 7.4 g/dL 6.0- 8.5 g/dL Albumin [792677] 4.4 g/dL 3.9-4.9 g/d L Globulin, Total [524806] 3.0 g/dL 1.5 -4.5 g/dL Bilirubin, Total [251005] 0.7 mg/dL 0. 0-1.2 mg/dL Alkaline Phosphatase [662495] 76 IU/L 44-121 IU/L AST (SGOT) [217596] 31 IU/L 0-40 IU/ L ALT (SGPT) [099380] 25 IU/L 0-32 IU/ L Lipid Panel[889948]?Collected: 07/02/2024 04:31 PM?Specimen Received: 07/02/2024 05:00 AM?Source: [facility] Cholesterol, Total [446232] 235 mg/dL H 100-199 mg/dL Triglycerides [015058] 211 mg/dL H 0-149 mg/dL HDL Cholesterol [579023] 47 mg/dL >39 mg/dL VLDL Cholesterol Daniel [951358] 38 mg/dL 5-40 mg/dL LDL Chol Calc (NIH) [378180] 150 mg/dL H 0-99 mg/dL Hemoglobin A1c[473510]?Collected: 07/02/2024 04:31 PM?Specimen Received: 07/02/2024 05:00 AM?Source: [facility] Hemoglobin A1c [674410] 5.9 % H 4.8- 5.6 % . Prediabetes: 5.7 - 6.4 Apolonia betes: >6.4 Glycemic control for adults with diabetes: 7.0 Allergies, adverse reactions, alerts No known allergies and adverse reactions Medications No administered medications reported Vital Signs No vital signs reported Social History No smoking Hx information available
== END 2024-11-10 07:29 | disposition home or self-care (01) ==
LOC: HO.MAMMO 07:28
PROVIDERS: PCP Internal Medicine; Visit Provider Internal Medicine
DX: Z12.31 Encounter for screening mammogram for malignant neoplasm of breast (principal)
CPT/HCPCS: 77063; 77067

== ENCOUNTER → 2024-11-10 07:30 | Outpatient (BNV) | payer OTHER, SELFPAY | PROVIDERS: PCP Internal Medicine; Visit Provider Internal Medicine | DX: Z12.31 Encounter for screening mammogram for malignant neoplasm of breast (principal) | CPT/HCPCS: 77063; 77067 ==

== ENCOUNTER → 2025-05-08 14:44 | Outpatient (REF) | payer OTHER, SELFPAY ==
--- NOTE | 2025-05-08 14:47 | CA_ITS ---
Transthoracic Echocardiogram Patient (Last, First, Middle): Candelaria Cedillo G Gender: Female Date of : 1960 Age: 65 Procedure Date: 05/08/2025 Procedure Type: Transthoracic Echocardiogram Location: OP Height: 167.64 cm Weight: 91.17 kg BSA: 2.00 m2 Heart Rate: bpm BP: 118 / 78 mmHg Alternative Energy Technician: TO Referring MD: Tay Priest MD Behavioral Instructor: Tay Priest MD Symptoms: I35.0 - Nonrheumatic aortic (valve) stenosis Study Quality: Adequate w contrast ECG Rhythm: Sinus Conclusions: - 1. Normal LV ejection fraction of 60-65% with impaired relaxation filling pattern 2. Moderate aortic stenosis 3. Upper limits of normal RV systolic pressure 4. Upper limits of normal ascending aortic size 5. No gross pericardial effusion Findings Procedure Information Contrast agent, definity, is being given per protocol without apparent complications. Left Ventricle Normal left ventricular size, thickness, and systolic function. The visually estimated ejection fraction is between 60-65%. Spectral Doppler is indicative of an impaired relaxation filling pattern. E/E prime ratio is between 8 and 15 consistent with indeterminate filling pressures. Right Ventricle Normal right ventricular cavity size and systolic function. Atria The left atrium is likely dilated. There is no evidence of interatrial shunt. The right atrium is normal in size. Aortic Valve There is moderate calcification of the aortic valve. There is mild thickening of the aortic valve. There is moderate aortic valve stenosis. There is no aortic valve regurgitation. Mitral Valve There is mild anterior and moderate posterior mitral leaflet thickening. There is mild mitral annular calcification. There is trace mitral valve regurgitation. There is no mitral valve stenosis. Pulmonic Valve The pulmonic valve was not well visualized. Tricuspid Valve Likely normal tricuspid valve structure and function. There is mild tricuspid valve regurgitation. The right ventricular systolic pressure is normal. The right ventricular systolic pressure is 35 mmHg. Normal right atrial pressure. There is no evidence of pulmonary hypertension. Great Vessels All visible segments of the aorta are normal in size. The pulmonary artery was not well visualized. There is no dilatation of the ascending aorta measuring 3.50 cm. Small plaque is seen in the sino tubular ridge. Venous The inferior vena cava is normal in size and collapses greater than 50% with inspiration. Pericardium/Pleural There is no evidence of pericardial effusion. Prior Study Comparison Changes noted compared to prior study dated: 05/06/2024. moderate aortic stenosis is now present Measurements 2D Linear Measurements IVSd: 1.02 0.6-0.9/0.6-1.0 cm LVIDd: 4.39 3.9-5.3/4.2-5.9 cm LVIDd Index: 2.20 2.4-3.2/2.2-3.1 cm/m2 LVIDs: 2.46 2.0-3.6 cm LVPWd: 0.95 0.7-1.1 cm LA Diam: 3.50 2.7-3.8/3.0-4.0 cm LAIDs Index: 1.75 1.5-2.3 cm/m2 LV Mass: 179.69 67-162/88-224 g LV Mass Index: 89.84 43-95/49-115 g/m2 LVOT Diam: 2.10 3.0+(-)1.3 cm 2D Systolic Function EF 4C: 61.20 >55% EF 2C: 65.50 >55% EF BiP: 64.50 >55% Mitral Valve MV Pk E: 0.90 MV PK A: 0.82 MV Decel Time: 260.00 E/A: 1.10 E'Lateral: 7.29 E'Medial: 6.74 E/E' Med: 13.40 E/E' Lat: 12.30 PHT: 76.00 MVA PHT: 2.89 Decel [place]: 3.46 Aortic Valve AoV Pk Rajendra: 3.01 AoV Mn Rajendra: 2.04 AoV VTI: 0.72 AoV Pk Grad: 36.00 Aov Mn Grad: 19.00 PRISCILA Cont.VTI: 1.13 LVOT LVOT Pk Rajendra: 1.00 LVOT Mn Rajendra: 0.75 LVOT VTI: 0.23 LVOT Pk Grad: 4.00 LVOT Mn Grad: 2.00 LVOT Diam: 2.10 LVOT Area: 3.46 Diastolic Function MV Pk E: 0.90 MV Pk A: 0.82 E/A: 1.10 E'Medial: 6.74 E/E' Med: 13.40 E' Laterial: 7.29 E/E' Lat: 12.30 Right Ventricle TAPSE (mm): 24.80 TVS' Rajendra: 19.60 Tricuspid Valve TR Pk Rajendra: 2.85 TR Pk Grad: 32.00 RA Press: 3.00 RVSP: 35.00 Great Vessels Aorta Sinus of Valsalva: 3.12 2.0-3.5 cm Ao Asc: 3.50 2.1-3.4 cm Ao Arch: 2.90 Updated in Other Vendor System with Status of Final Tay Priest MD electronically signed on 05/09/2025 8:56:08 AM with status of Final
--- OUTSIDE RECORDS SUMMARY | 2025-05-08 17:25 | XMS_ITS | Clinical Summary ---
Author Organization [facility] [place] [address] Care Team Providers Care Supervisor Lace Tearing Name Role Phone Carlo Horner MD Primary Care Provider Allergies Active Allergy Reactions Criticality Noted Date Comments Hydrocodone Itching,Nausea And Vomiting 02/12/2015 hypotension Hydrocodone-Acetaminoph en 01/13/2019 Oxycodone Itching 02/12/2015 Oxycodone-Acetaminophen 08/16/2016 Yrqyexf-Sgk-Rjp Reductase Inhibitors Dizziness Medium 01/26/2023 Statins Support Therapy Tramadol Nausea And Vomiting 02/12/2015 Medications olmesartan (BENICAR) 20 mg tablet Take 1 Tablet by mouth daily. 08/14/2023 Active ascorbic acid, vitamin C, 100 mg tablet,chewable Vitamin C Acti ve ezetimibe (ZETIA) 10 mg tablet 01/23/2023 Active turmeric root extract 500 mg capsule Take by mouth. Active omeprazole (PriLOSEC) [address] capsule TAKE ONE CAPSULE BY MOUTH EVERY DAY 90 capsule 1 12/02/2024 Active Active Problems Problem Noted Date Diagnosed Date COVID-19 08/26/2020 Primary osteoarthritis of both hands 10/06/2019 Primary osteoarthritis of both knees 10/06/2019 Pain in joint, multiple sites 08/19/2019 Gastroesophageal reflux disease 05/07/2019 Elevated glucose 06/22/2015 Overview (08/22/2024): History gestational diabetes per transfer notes Genital herpes 05/24/2015 Depression 05/24/2015 Hypertension 02/12/2015 Hypercholesterolemia 02/12/2015 CTS (carpal tunnel syndrome) 02/12/2015 Overview (08/22/2024): CTR 03/09 Immunizations Name Administration Dates Next Due Influenza trivalent, 0.5mL ( Fluad) 65yo and older 04/27/2018 Influenza trivalent, 0.5mL, preservative free (Fluarix; FluLaval; Fluzone) ages 6mo and older (Afluria) 3 years and older 05/19/2020,05/11/2019,06/04/2017 Influenza, Unspecified 06/18/2023,2021,05/31/2016,2014 Td Tetanus diptheria (Tdvax) 7yo and older 09/21/2006 Tdap Tetanus diptheria acell ular pertussis (Boostrix; Adacel) 7yo and older 05/24/2015,11/21/2012 Zoster recombinant (Shingrix ) 19yo and older 08/09/2018,04/27/2018 Surgical History Surgery Date Site/Laterality Comments OTHER SURGICAL HISTORY 06.20.14 PROCEDURE: MAMMOGRAM CARPAL TUNNEL RELEASE 03/09 PROCEDURE: HISTORICAL CARPAL TUNNEL REL SECTION x 1 PROCEDURE: HISTORICAL ; COMMENT: w tubal CHOLECYSTECTOMY 01/2019 PROCEDURE: HISTORICAL CHOLECYSTECTOMY Medical History Medical History Date Comments Hypertension 02/12/2015 DX:Hypertension Hypercholesterolemia 02/12/2015 DX:Hypercho lesterolemia CTS (carpal tunnel syndrome) 02/12/2015 DX: CTS (carpal tunnel syndrome); COMMENT: CTR 03/09 Gall stones 07/19/2015 DX:Gall stones Depression 05/24/2015 DX:Depression Elevated glucose 06/22/2015 DX:Elevated glu cose; COMMENT: History gestational diabetes per transfer notes Genital herpes 05/24/2015 DX:Genital herpe s Gastroesophageal reflux disease 05/07/2019 DX:Gastroesophageal reflux disease Family History Medical History Relation Name Comments Hypertension Brother 1 Don No Known Problems Brother 2 Toby Diabetes Brother 3 Mihai HTN Thyroid disease Daughter 1 Melissa No Known Problems Daughter 2 Leti No Known Problems Daughter 3 Jerrica No Known Problems Father Other: thyroid cancer Mother HTN, g allbladder cancer Breast cancer Other maternal first cousin Breast cancer Sister 1 Lisette second primary breast ca at age 58 Leukemia Sister 2 Ciera Diabetes Sister 3 Lisa Hypertension Sister 4 Tori Hypertension Sister 5 Julio C Other: cancer,other Uncle maternal uncle - facial cancer, ? primary Relation Name Status Comments Brother 1 Don Alive Brother 2 Toby Alive Brother 3 Mihai Alive Daughter 1 Melissa Alive Daughter 2 Leti Alive Daughter 3 Jerrica Alive Father Mother Other Sister 1 Lisette Alive Sister 2 Ciera Sister 3 Lisa Alive Sister 4 Tori Alive Sister 5 Julio C Alive Uncle Social History Tobacco Use Types Packs/Day Years Used Date Smoking Tobacco: Never Smokeless Tobacco: Never Alcohol Use Standard Drinks/Week Comments Yes 0 (1 standard drink = 0.6 oz pur e alcohol) Comments Unknown Sex and Gender Information Value Date Recorded Sex Assigned at Not on file Legal Sex Female 10:22 PM EST Gender Identity Not on file Sexual Orientation Straight 07/01/2024 7: 49 AM EST Obstetrics History Last Filed Vital Signs Vital Sign Reading Time Taken Comments Blood Pressure 112/72 01/07/2024 3:47 PM EDT Pulse 78 01/07/2024 3:47 PM EDT Temperature - - Respiratory Rate - - Oxygen Saturation - - Inhaled Oxygen Concentration - - Weight 89.6 kg (197 lb 9.6 oz) 01/07/2024 3:47 P M EDT Height 167.6 cm (5' 6 ) 01/07/2024 3:47 PM EDT Body Mass Index 31.89 01/07/2024 3:47 PM EDT Plan of Treatment Upcoming Encounters Date Type Department Care Team (Late st Contact Info) Description 05/28/2025 4:00 PM EDT Office Visit Adult Medicine [facility] [address] [place] [address] Carlo Horner MD [address] [place], [place] Health Maintenance Due Date Last Done Comments Pneumococcal Vaccine: 50+ Years (1 of 1 - PCV) 2011 HIV Screening 07/29/2022 Social Influencers of Health Screening 07/29/2022 Depression Screening 08/27/2024 Hypertension/CHF/CAD Annual BMP Blood Test 10/25/2024 10/26/2023 COVID-19 Vaccine (3 - season) 2025 10/08/2020, 09/17/2020 Influenza Vaccine (#1) 2025 , 05/30/2022, 05/19/2020, Additional history exists DTaP,Tdap,and Td Vaccines (4 - Td or Tdap) 05/24/2025 05/24/2015, 11/21/2012, 09/21/2006 Breast Cancer Screening 11/10/2025 11/10/2024, 11/10 Colorectal Cancer Screening: Colonoscopy 01/19/2028 01/18/2018 Cholesterol Screening (Lipid Panel) 10/25/2028 10/26/2023 Cervical Cancer Screening: HPV 01/06/2029 01/07/2024 RSV Immunization Adult Patients (1 - 1-dose 75+ series) 01/30/2036 Hepatitis C Screening Completed 05/24/2015 Zoster Vaccines Completed 08/09/2018, 04/27/2018 HIB Vaccines Aged Out No longer eligi ble based on patient's age to complete this topic HPV Vaccines Aged Out No longer eligi ble based on patient's age to complete this topic Hepatitis A Vaccines Aged Out No long er eligible based on patient's age to complete this topic Hepatitis B Vaccines Aged Out No long er eligible based on patient's age to complete this topic IPV Vaccines Aged Out No longer eligi ble based on patient's age to complete this topic MMR Vaccines Aged Out No longer eligi ble based on patient's age to complete this topic Meningococcal ACWY Vaccine Aged Out N o longer eligible based on patient's age to complete this topic Meningococcal B Vaccine Aged Out No l onger eligible based on patient's age to complete this topic RSV Immunization Patients Under 20 months Aged Out No longer eligible based on patient's age to complete this topic Varicella Vaccines Aged Out No longer eligible based on patient's age to complete this topic Procedures Procedure Name Priority Date/Time Associated Diagnosis Comments EXTERNAL MAMMOGRAM REPORT 11/10/2024 HPV Routine 01/07/2024 ANNUAL BMP BLOOD TEST Routine 10/26/2023 LIPID PANEL Routine 10/26/2023 COLONOSCOPY Routine 01/18/2018 HEPATITIS C SCREENING Routine 05/24/2015 from Last 3 Months or Most Recently Relevant to Health Maintenance Results * External Mammogram Report (11/10/2024) Anatomical Region Laterality Modality Mammography Kamryn Mullen Onbase IMG BI PROCEDURES Final Result * Cervical Cancer Screening: HPV (01/07/2024) [facility] Cervical Cancer Screening: HPV negative, abstracted [facility] Provider HEALTH MAINTENANCE Final Result * Annual BMP Blood Test (10/26/2023) Pathologist [facility] Annual BMP Blood Test abstracted Result [facility] Provider HEALTH MAINTENANCE Final Result * (ABNORMAL) Lipid panel (10/26/2023) [facility] LDL/HDL Ratio 4 0 - 4 Triglycerides 121 0 - 150 mg/dL Cholesterol 215(A) 0 - 200 mg/dL HDL 52 >=40 mg/dL LDL Cholesterol 139(A) 0 - 100 mg/dL Blood Venous blood specimen / Unknown Result [facility] Provider LAB BLOOD ORDERABLES Ashley l Result * Colonoscopy (01/18/2018) [facility] Colonoscopy normal, abstracted Anatomical Region Laterality Modality Other Result [facility] Provider HEALTH MAINTENANCE Final Result * Hepatitis C Screening (05/24/2015) [facility] Hepatitis C Screening abstracted [facility] Provider HEALTH MAINTENANCE Final Result from Last 3 Months or Most Recently Relevant to Health Maintenance Insurance x120 (Work) [address] [place] [id number] [facility] Care Teams Supervisor Lace Tearing Relationship Specialty Start Date End Date Carlo Horner MD [address] [place] [address] PCP - General 01/30/23
--- OUTSIDE RECORDS SUMMARY | 2025-05-08 17:25 | XMS_ITS | Continuity of Care Document ---
Author Organization [facility] Address [address] [facility] [address] [place] [address] Insurance Providers Payer Plan Claims Address Claims Phone Policy Number Group Number Relation Employer Guarantor Name Guarantor Guarantor [place] [address] tel:[phone] [id number] [id number] Self Candelaria Cedillo [address] [place] [address] [facility] tel:[phone] [id number] [phone] Self Candelaria Cedillo [address] [place] [address] [facility], [address], [place] [address] tel:[phone] Self Candelaria Cedillo [address] [place] [address] Problems Unknown Problems Results Test Result Date/Time Value / Unit Interp. Refere dee Range Comp. Metabolic Panel (14)[3 [id number]] Collected: 07/02/2024 04:31 PM Specimen Received: 07/02/2024 05:00 AM Source: [facility] Glucose [[id number]] 07/03/2024 04:10 AM 93 mg/dL 70-99 mg/dL BUN [[id number]] 07/03/2024 04:15 AM 13 mg/dL 8-2 7 mg/dL Creatinine [[id number]] 07/03/2024 04:10 AM 1.03 mg/dL H 0.57-1.00 mg/dL eGFR [[id number]] 07/03/2024 04:10 AM 61 mL/min/1.73 >59 mL/min/1.73 BUN/Creatinine Ratio [[id number]] 07/03/2024 04:15 AM 13 12-28 Sodium [[id number]] 07/03/2024 04:06 AM 140 mmol/L 134-144 mmol/L Potassium [[id number]] 07/03/2024 04:09 AM 5.0 mmol/L 3.5-5.2 mmol/L Chloride [[id number]] 07/03/2024 04:04 AM 101 mmol/L 96-106 mmol/L Carbon Dioxide, Total [[id number]] 07/03/2024 04:08 AM 25 mmol/L 20-29 mmol/L Calcium [[id number]] 07/03/2024 04:08 AM 9.7 mg/dL 8.7-10.3 mg/dL Protein, Total [[id number]] 07/03/2024 04:23 AM 7.4 g/dL 6.0-8.5 g/dL Albumin [[id number]] 07/03/2024 04:16 AM 4.4 g/dL 3.9-4.9 g/dL Globulin, Total [[id number]] 07/03/2024 04:23 AM 3.0 g/dL 1.5-4.5 g/dL Bilirubin, Total [[id number]] 07/03/2024 04:17 AM 0.7 mg/dL 0.0-1.2 mg/dL Alkaline Phosphatase [183426] 07/03/2024 04:18 AM 76 IU/L 44-121 IU/L AST (SGOT) [148175] 07/03/2024 04:16 AM 31 IU/L 0-40 IU/L ALT (SGPT) [[id number]] 07/03/2024 04:16 AM 25 IU/L 0-32 IU/L Lipid Panel[[id number]] Collected: 07/02/2024 04:31 PM Specimen Received: 07/02/2024 05:00 AM Source: [facility] Cholesterol, Total [[id number]] 07/03/2024 04:30 AM 235 mg/dL H 100-199 mg/d L Triglycerides [[id number]] 07/03/2024 04:25 AM 211 mg/dL H 0-149 mg/dL HDL Cholesterol [[id number]] 07/03/2024 04:28 AM 47 mg/dL >39 mg/dL VLDL Cholesterol Daniel [[id number]] 07/03/2024 04:30 AM 38 mg/dL 5-40 mg/dL LDL Chol Calc ([facility]) [[id number]] 07/03/2024 04:30 AM 150 mg/dL H 0-99 mg/dL Hemoglobin A1c[[id number]] Collected: 07/02/2024 04:31 PM Specimen Received: 07/02/2024 05:00 AM Source: [facility] Hemoglobin A1c [[id number]] 07/03/2024 06:00 AM 5.9 % H 4.8-5.6 % . Prediabetes: 5.7 - 6.4 Di abetes: >6.4 Glycemic control for adults with diabetes: 7.0 Allergies, adverse reactions, alerts No known allergies and adverse reactions Medications No administered medications reported Vital Signs No vital signs reported Social History No smoking Hx information available
--- OUTSIDE RECORDS SUMMARY | 2025-05-08 17:25 | XMS_ITS | Patient Health Record ---
[facility] Address [address] [facility] [place] [address] Care Team Providers Care Crushing Mill Operator Name Role Phone Tiffany MUKHERJEE, Sophia Dennis Primary Care Provider Luis Francois Unavailable [phone] Allergies Allergen (clinical drug ingredient) Drug/Non Drug [...] tablet with fo od Orally Once a day; Duration: 30 day(s) Active Night Splint AFO - L1930 as directed 12/01/2020 Active Multivitamin - as directed Orally O nce a day Active Simvastatin 20 MG 1 tablet in the even ing Orally Once a day; Duration: 30 day(s) Active Vitamin C Active Physical Therapy . . . 2-3x/week; Durat ion: 3-4 weeks 12/01/2020 Active Voltaren 1 % as directed External ly apply bid to bunion; Duration: 30 days 12/01/2020 Active Omeprazole 20 MG as directed Orally O nce a day Active Calcium + D3 600-800 MG-UNIT 1 tablet with a meal Orally Once a day Active Olmesartan Medoxomil 20 MG 1 tablet Oral ly Once a day; Duration: 30 day(s) Active Immunizations Vaccine Route Administration [...] Status Risk Notes Problem Acquired hallux valgus (96619108) Hallux valgus (acquired), left foot (M20.12) Active confirmed Plan Of Treatment Pending Test Test Name Order Date X ray : Foot, left 3V 12/01/2020 Insurance Providers Payer Name Payer Address Payer Phone Subscriber Number Group Number Insured Name Patient Relationship to Insured Coverage Start Date Coverage End Date [facility] [address] [facility] [id number] Candelaria Cedillo Self - patient is the insured Medical (General) History Medical History History ICD Code Back,Hip,and Knee pain Cholesterol Depression Gall bladder problems High blood pressure Reflux ( GERD) Sciatica Chicken pox Surgical History Surgery Date(Month/Year) gall bladder 02/20/19 carpal tunnel surgery left and right
--- OUTSIDE RECORDS SUMMARY | 2025-05-08 17:25 | XMS_ITS ---
Author Name [facility] Organization Unknown Care Team Organization Name Specialty Phone Email Start Date End Da te [facility] LARRY PAK Primary Care 11/01/2022 04/14/2024 [facility] Termed, PROVIDER Primary Care 07/04/202203/27
--- OUTSIDE RECORDS SUMMARY | 2025-05-08 17:25 | XMS_ITS | Continuity of Care Document ---
Author Organization [facility] Address [address] [facility] [address] [place] [address] Insurance Providers Payer Plan Claims Address Claims Phone Policy Number Group Number Relation Employer Guarantor Name Guarantor Guarantor [place] [address] tel:[id number] [phone] Self Candelaria Cedillo [address] [place] [address] [facility] tel:[phone] [id number] [phone] Self Candelaria Cedillo [address] [place] [address] [facility], [address], [place] [address] tel:[phone] Self Candelaria Cedillo [address] [place] [address] Problems Unknown Problems Results Test Result Date/Time Value / Unit Interp. Refere ore Range Comp. Metabolic Panel (14)[3 [id number]] Collected: 07/02/2024 04:31 PM Specimen Received: 07/02/2024 05:00 AM Source: [facility] Glucose [[id number]] 07/03/2024 04:10 AM 93 mg/dL 70-99 mg/dL BUN [[id number]] 07/03/2024 04:15 AM 13 mg/dL 8-2 7 mg/dL Creatinine [[id number]] 07/03/2024 04:10 AM 1.03 mg/dL H 0.57-1.00 mg/dL eGFR [[id number]] 07/03/2024 04:10 AM 61 mL/min/1.73 >59 mL/min/1.73 BUN/Creatinine Ratio [[id number]] 07/03/2024 04:15 AM 13 12-28 Sodium [[id number]] 07/03/2024 04:06 AM 140 mmol/L 134-144 mmol/L Potassium [[id number]] 07/03/2024 04:09 AM 5.0 mmol/L 3.5-5.2 mmol/L Chloride [[id number]] 07/03/2024 04:04 AM 101 mmol/L 96-106 mmol/L Carbon Dioxide, Total [852832] 07/03/2024 04:08 AM 25 mmol/L 20-29 mmol/L Calcium [[id number]] 07/03/2024 04:08 AM 9.7 mg/dL 8.7-10.3 mg/dL Protein, Total [[id number]] 07/03/2024 04:23 AM 7.4 g/dL 6.0-8.5 g/dL Albumin [[id number]] 07/03/2024 04:16 AM 4.4 g/dL 3.9-4.9 g/dL Globulin, Total [[id number]] 07/03/2024 04:23 AM 3.0 g/dL 1.5-4.5 g/dL Bilirubin, Total [[id number]] 07/03/2024 04:17 AM 0.7 mg/dL 0.0-1.2 mg/dL Alkaline Phosphatase [[id number]] 07/03/2024 04:18 AM 76 IU/L 44-121 IU/L AST (SGOT) [[id number]] 07/03/2024 04:16 AM 31 IU/L 0-40 IU/L ALT (SGPT) [553662] 07/03/2024 04:16 AM 25 IU/L 0-32 IU/L Lipid Panel[[id number]] Collected: 07/02/2024 04:31 PM Specimen Received: 07/02/2024 05:00 AM Source: [facility] Cholesterol, Total [[id number]] 07/03/2024 04:30 AM 235 mg/dL H 100-199 mg/d L Triglycerides [421284] 07/03/2024 04:25 AM 211 mg/dL H 0-149 mg/dL HDL Cholesterol [[id number]] 07/03/2024 04:28 AM 47 mg/dL >39 mg/dL VLDL Cholesterol Daniel [[id number]] 07/03/2024 04:30 AM 38 mg/dL 5-40 mg/dL LDL Chol Calc ([facility]) [488105] 07/03/2024 04:30 AM 150 mg/dL H 0-99 mg/dL Hemoglobin A1c[[id number]] Collected: 07/02/2024 04:31 PM Specimen Received: 07/02/2024 05:00 AM Source: [facility] Hemoglobin A1c [[id number]] 07/03/2024 06:00 AM 5.9 % H 4.8-5.6 % . Prediabetes: 5.7 - 6.4 Di abetes: >6.4 Glycemic control for adults with diabetes: 7.0 Allergies, adverse reactions, alerts No known allergies and adverse reactions Medications No administered medications reported Vital Signs No vital signs reported Social History No smoking Hx information available
--- OUTSIDE RECORDS SUMMARY | 2025-05-08 17:25 | XMS_ITS | Clinical Summary ---
Author Organization [facility] Address [address] [place] [address] Phone Care Team Providers Care Merchandise Worker Name Role Phone Unknown, Unknown Primary Care Provider Antwon poon Allergies Active Allergy Reactions Criticality Noted Date Comments Hydrocodone Itching,Nausea And Vomiting 02/12/2015 hypotension Oxycodone Itching 02/12/2015 Oxycodone-Acetaminophen 08/16/2016 Tramadol Nausea And Vomiting 02/12/2015 Medications hydroCHLOROthia zide (HYDRODIURIL) 25 MG tablet Take 25 mg by mouth. 8 Active simvastatin (ZOCOR) 20 MG tablet Take 20 mg by mouth. 8 Active olmesartan (BENICAR) 20 mg tablet Take 20 mg by mouth daily. Active omeprazole (PRILOSEC) 20 mg TbEC Take 20 mg by mouth daily before breakfast. Active venlafaxine (EFFEXOR-XR) 37.5 MG 24 hr capsule Take 1 capsule (37.5 mg total) by mouth daily. 90 capsule 3 0 Active metroNIDAZOLE (METROGEL) 0.75 % vaginal gel Place vaginally every evening. For 5 days 70 g 0 Active Active Problems Problem Noted Date Diagnosed Date BV (bacterial vaginosis) 08/28/2019 Menopause syndrome 08/28/2019 Women's annual routine gynecological examination 08/28/2019 Family History Medical History Relation Comments Diabetes Brother Diabetes Father Cancer Mother Cancer of the [place] llbladder Hypertension Mother Thyroid cancer Mother Breast cancer Sister 1 x2 Diabetes Sister 1 Hypertension Sister 1 Thyroid disease Sister 2 Diabetes Sister 3 Leukemia Sister 3 Relation Status Comments Brother Father Alive Mother Sister 1 Sister 2 Sister 3 Social History Tobacco Use Types Packs/Day Years Used Date Smoking Tobacco: Never Smokeless Tobacco: Never Alcohol Use Standard Drinks/Week Comments Yes 0 (1 standard drink = 0.6 oz pur e alcohol) 2 drinks per month Education Answer Date Recorded Are you interested in more education? Not on ellyn e 12/22/2022 Are you concerned about learning? Not on file 12/22/2022 No 12/22/2022 No 12/22/2022 Digital Access Answer Date Recorded No 01/20/2023 No 01/20/2023 Reliable internet access at home? Not on file 01/20/2023 Device with a working camera? Not on file Comments No Sex and Gender Information Value Date Recorded Sex Assigned at Not on file Legal Sex Female 3:29 PM EST Gender Identity Not on file Sexual Orientation Not on file Occupation Industry Job Start Date Job End Date Working Not on file Not on file Not on file Last Filed Vital Signs Vital Sign Reading Time Taken Comments Blood Pressure 136/100 07/25/2018 4:31 PM EST Pulse - - Temperature - - Respiratory Rate - - Oxygen Saturation - - Inhaled Oxygen Concentration - - Weight 89.5 kg (197 lb 6.4 oz) 07/25/2018 4:31 P M EST Height 166.4 cm (5' 5.5 ) 07/25/2018 4:31 PM EST Body Mass Index 32.35 07/25/2018 4:31 PM EST Plan of Treatment Health Maintenance Due Date Last Done Comments CREATININE LEVEL 1961 LIPID PANEL 1961 POTASSIUM LEVEL 1961 DEPRESSION SCREENING 1973 HEPATITIS C SCREENING 1979 HIV ONE-TIME SCREENING (18-65 YEARS) 1979 MAMMOGRAM 2001 COLOGUARD 2006 COLONOSCOPY 2006 COLORECTAL CANCER SCREENING 2006 FIT TEST 2006 FOBT 2006 SIGMOIDOSCOPY 2006 VIRTUAL COLONOSCOPY 2006 PNEUMOCOCCAL VACCINES (50+ years) (1 of 1 - PCV) 2011 PAP SMEAR 08/28/2022 08/28/2019, 08/28/2019 INFLUENZA VACCINE (#1) 2025 0, 05/11/2019, 04/27/2018, Additional history exists COVID-19 VACCINE (3 - 2024- season) 2025 10/08/2020, 09/17/2020 Adult Td,Tdap Booster 05/24/2025 05/24/2015 RSV VACCINE (1 - 1-dose 75+ series) 01/30/2036 ZOSTER VACCINES Completed 08/09/2018, 04/27/2018 SMOKING STATUS SCREENING (Once After 26 Yrs) Completed 08/28/2019 HEPATITIS A VACCINES Aged Out No long er eligible based on patient's age to complete this topic HIB VACCINES Aged Out No longer eligi ble based on patient's age to complete this topic MENINGOCOCCAL VACCINES (ACWY) Aged Out No longer eligible based on patient's age to complete this topic MENINGOCOCCAL VACCINES (B) Aged Out N o longer eligible based on patient's age to complete this topic Medical Devices Not on file Procedures Procedure Name Priority Date/Time Associated Diagnosis Comments PAP TEST Routine 08/28/2019 12:00 AM EST from Last 3 Months or Most Recently Relevant to Health Maintenance Results * (ABNORMAL) Pap Smear (08/28/2019 12:00 AM EST) 08/28/2019 08/29/2019 9:3 4 AM EST Narrative SEE NARRATIVE - 09/23/2019 1:28 [place] [address] Bilingual Loan Processor: Naomy Howard MD GROMMET MACHINE OPERATOR Cytology Report FINAL DIAGNOSIS A. PAP SMEAR (SUREPATH) CE: SPECIMEN ADEQUACY: Satisfactory for evaluation; transformation zone present. INTERPRETATION: EPITHELIAL CELL ABNORMALITY - SQUAMOUS. Atypical squamous cells of undetermined significance. Electronically Signed Out By: MD Don Yates CT(ASCP) By his/her signature above, the pathologist listed as making the Final Diagnosis certifies that he/she has personally reviewed this case and confirmed or corrected the diagnosis. The Pap test is a screening test primarily for squamous cancers and precursors and has associated false-negative and false-positive results. New technologies such as liquid-based preparations may decrease but will not eliminate all false-negative results. Regular sampling and follow-up of unexplained clinical signs and symptoms are recommended to minimize false negative results. PROCEDURES/ADDENDA HPV Testing (Reflex) Ordered Date: 09/02/2019 A. PAP SMEAR (SUREPATH) CE: Human Papilloma Virus Test Negative for high-risk human papillomavirus types 16, 18, 45 and the Other high risk probe set (Includes 31, 33, 35, 39, 51, 52, 56, 58, 59, 66, 68) by [facility] Onclarity HR-HPV analysis. Clinical correlation is advised. This HPV test was performed at [facility], [address] [place] [address]. This test has been FDA approved for SurePath cervical cytology specimens. The accuracy and precision of this test for all other specimen sources has been verified in the Cytopathology Laboratory of the [facility] and has not been cleared or approved by the U.S. Food and Drug Administration. Clinical correlation is advised. CLINICAL HISTORY Date of Last Menstrual Period: Not Provided Menstrual History: Post Menopausal Other Clinical Conditions: Screening Pap SPECIMEN SOURCE A: PAP SMEAR (SUREPATH) CE Patient Name: CANDELARIA ANDRES : 1960 (Age: 59) Sex: F Institution: [facility] Location: [facility] Date of Collection: 08/28/2019 Date of Reported: 09/02/2019 15:50 Results to: Darci Koch MD Darci Koch MD CYTOLOGY ORDERABLES Edited Resu lt - Final SEE NARRATIVE from Last 3 Months or Most Recently Relevant to Health Maintenance Insurance [facility] HMO Care Teams Merchandise Worker Relationship Specialty Start Date End Date Unknown, Unknown, PCP - General 07/10/18 Additional Source Comments The information contained in this document represents components of the legal health record. It is not the complete legal health record.[facility]
--- OUTSIDE RECORDS SUMMARY | 2025-05-08 17:25 | XMS_ITS | Patient Health Record ---
Author Organization [facility] Address [address] [place] [address] Care Team Providers Care Manufacturing Quality Inspector Name Role Phone Tiffany Sophia Dennis Primary Care Provider UnavailDarci Peguero Unavailable [phone] Allergies Allergen (clinical drug ingredient) Drug/Non Drug Allergy documented on EMR Reaction Allergy Type Onset Date Status Vicodin Unknown Drug Allergy Active tramadol Tramadol HCl Unknown Drug Allergy Acti ve acetaminophen / oxycodone Percocet Unknown Drug Allergy Active Reason For Referral No Information Medications Medication SIG (Take, Route, Frequency, Duration) Notes Start Date End Date Status Simvastatin 20mg 1 po qd Act martinez hydroCHLOROthiazide 12.5mg 1 po qam Active Effexor 75 mg Active Multivitamin Active Calcium Active Stool Softener Activ e Fiber Active Social History Alcohol Screen Question Answer Notes Did you have a drink contain ing alcohol in the past year? Yes How often did you have a dri nk containing alcohol in the past year? Never (0 point) How many drinks did you have on a typical day when you were drinking in the past year? 1 or 2 drinks (0 point) How often did you have 6 or more drinks on one occasion in the past year? Never (0 point) Points 0 Interpretation Negative Section Notes: She does not smoke nor use a ny significant amounts of alcohol. She does not smoke nor use a ny significant amounts of alcohol. Problems Problem Type SNOMED Code ICD Code Onset Dates Problem Status W/U Status Risk Notes Problem 28805741 Blood in stool (K92.1) Active confirmed Problem 06269630 Rectal bleed (K62.5) Active confirmed Plan Of Treatment Future Test Test Name Order Date COLONOSCOPY 06/30/2011 COLONOSCOPY 12/20/2017 Insurance Providers Payer Name Payer Address Payer Phone Subscriber Number Group Number Insured Name Patient Relationship to Insured Coverage Start Date Coverage End Date [facility] [address] [place] [phone] [id number] ANDRÉS ANDRES Self - patient is the insured Medical (General) History Medical History History ICD Code Hypertension Hyperlipidemia Denies CA,DM,CVA,Lung disease,renal dise ase Neg. screening colonoscopy i n 07/2011 except for a hyperplastic polyp, int/ext hemorrhoids Effexor for hot flashes Surgical History Surgery Date(Month/Year) Carpal tunnel surgery C-sections
== END ==
LOC: HO.CARD 14:44
PROVIDERS: Visit Provider Internal Medicine Cardiovascular Disease
DX: I35.0 Nonrheumatic aortic (valve) stenosis (principal)
CPT/HCPCS: 93306; Q9957

== ENCOUNTER → 2025-05-08 14:47 | Outpatient (BNV) | payer OTHER, SELFPAY | PROVIDERS: Visit Provider Internal Medicine Cardiovascular Disease | DX: I35.0 Nonrheumatic aortic (valve) stenosis (principal) | CPT/HCPCS: 93306 ==

== ENCOUNTER 2025-05-16 07:14 | Outpatient (REF) | payer OTHER, SELFPAY ==
--- OUTSIDE RECORDS SUMMARY | 2025-05-16 07:18 | XMS_ITS | Patient Health Record ---
Author Organization [facility] Address [address] [place] [address] Care Team Providers Care Zone Supervisor Firearms Name Role Phone Tiffany Sophia Dennis Primary Care Provider UnavailDarci Peguero Unavailable [phone] Allergies Allergen (clinical drug ingredient) Drug/Non Drug [...] Problem Status W/U Status Risk Notes Problem 82806294 Blood in stool (K92.1) Active confirmed Problem 82207220 Rectal bleed (K62.5) Active confirmed Plan Of Treatment Future Test Test Name Order Date COLONOSCOPY 06/30/2011 COLONOSCOPY 12/20/2017 Insurance Providers Payer Name Payer Address Payer Phone Subscriber Number Group Number Insured Name Patient Relationship to Insured Coverage Start Date Coverage End Date [facility] [address] [place] [phone] [id number] ANDRÉS ANDRES Self - patient is the insured Medical (General) History Medical History History ICD Code Hypertension Hyperlipidemia Denies MS,DM,CVA,Lung disease,renal dise ase Neg. screening colonoscopy i n 07/2011 except for a hyperplastic polyp, int/ext hemorrhoids Effexor for hot flashes Surgical History Surgery Date(Month/Year) Carpal tunnel surgery C-sections
--- OUTSIDE RECORDS SUMMARY | 2025-05-16 07:18 | XMS_ITS | Clinical Summary ---
Author Organization [facility] Address [address] [place] [address] Phone Care Team Providers Care Head Trimmer Name Role Phone Unknown, Unknown Primary Care [...] SEE NARRATIVE - 09/23/2019 1:28 [place] [address] Quality Assurance Supervisor Chassis: Naomy Howard MD HEMATOLOGY TECHNICIAN Cytology Report FINAL DIAGNOSIS A. PAP SMEAR [...] 52, 56, 58, 59, 66, 68) by [facility] Onclarity HR-HPV analysis. Clinical correlation is advised. This HPV test was performed at [facility], [address] [place] [address]. This test has been FDA approved for SurePath cervical cytology specimens. The accuracy and precision of this test for all other specimen sources has been verified in the Cytopathology Laboratory of the [facility] and has not been cleared or approved by the U.S. Food and Drug Administration. Clinical correlation is advised. CLINICAL HISTORY Date of Last Menstrual Period: Not Provided Menstrual History: Post Menopausal Other Clinical Conditions: Screening Pap SPECIMEN SOURCE A: PAP SMEAR (SUREPATH) CE Patient Name: CANDELARIA ANDRES : 1960 (Age: 59) Sex: F Institution: [facility] Location: [facility] Date of Collection: 08/28/2019 Date of Reported: 09/02/2019 15:50 Results to: Darci Koch MD Darci Koch MD CYTOLOGY ORDERABLES Edited Resu lt - Final SEE NARRATIVE from Last 3 Months or Most Recently Relevant to Health Maintenance Insurance [facility] H[facility] Care Teams Head Trimmer Relationship Specialty Start Date End Date Unknown, Unknown, PCP - General 07/10/18 Additional Source Comments The information contained in this document represents components of the legal health record. It is not the complete legal health record.[facility]
--- OUTSIDE RECORDS SUMMARY | 2025-05-16 07:18 | XMS_ITS | Clinical Summary ---
Author Organization [facility] [place] [address] Care Team Providers Care School Age Program Associate Name Role Phone Carlo Horner MD Primary Care Provider Allergies Active Allergy Reactions Criticality Noted Date Comments Hydrocodone Itching,Nausea And Vomiting 02/12/2015 hypotension Hydrocodone-Acetaminoph en 01/13/2019 Oxycodone Itching 02/12/2015 Oxycodone-Acetaminophen 08/16/2016 Rointjq-Bkl-Lfu Reductase Inhibitors Dizziness Medium 01/26/2023 Statins Support [...] 4:00 PM EDT Office Visit Adult Medicine [facility] [address] [place] [address] Carlo Horner MD [address] [place], [place] Health Maintenance Due Date Last Done [...] Result * Cervical Cancer Screening: HPV (01/07/2024) [facility] Cervical Cancer Screening: HPV negative, abstracted [facility] Provider HEALTH MAINTENANCE Final Result * Annual BMP Blood Test (10/26/2023) Pathologist [facility] Annual BMP Blood Test abstracted Result [facility] Provider HEALTH MAINTENANCE Final Result * (ABNORMAL) Lipid panel (10/26/2023) [facility] LDL/HDL Ratio 4 0 - 4 Triglycerides 121 0 - 150 mg/dL Cholesterol 215(A) 0 - 200 mg/dL HDL 52 >=40 mg/dL LDL Cholesterol 139(A) 0 - 100 mg/dL Blood Venous blood specimen / Unknown Result [facility] Provider LAB BLOOD ORDERABLES Ashley l Result * Colonoscopy (01/18/2018) [facility] Colonoscopy normal, abstracted Anatomical Region Laterality Modality Other Result [facility] Provider HEALTH MAINTENANCE Final Result * Hepatitis C Screening (05/24/2015) [facility] Hepatitis C Screening abstracted [facility] Provider HEALTH MAINTENANCE Final Result from Last 3 Months or Most Recently Relevant to Health Maintenance Insurance x120 (Work) [address] [place] [address] [facility] Care Teams School Age Program Associate Relationship Specialty Start Date End Date Carlo Horner MD [address] [place] [address] PCP - General 01/30/23
--- OUTSIDE RECORDS SUMMARY | 2025-05-16 07:19 | XMS_ITS | Patient Health Record ---
Author Organization [facility] Address [address] [place] [address] Care Team Providers Care District Plant Engineer Name Role Phone Tiffany MUKHERJEE, Sophia Dennis Primary Care Provider Luis Francois Unavailable [phone] Allergies Allergen (clinical drug ingredient) Drug/Non Drug [...] Status Risk Notes Problem Acquired hallux valgus (11780135) Hallux valgus (acquired), left foot (M20.12) Active confirmed Plan Of Treatment Pending Test Test Name Order Date X ray : Foot, left 3V 12/01/2020 Insurance Providers Payer Name Payer Address Payer Phone Subscriber Number Group Number Insured Name Patient Relationship to Insured Coverage Start Date Coverage End Date [facility] [address] [facility] [address] [id number] Candelaria Cedillo Self - patient is the insured Medical (General) History Medical History History ICD Code Back,Hip,and Knee pain Cholesterol Depression Gall bladder problems High blood pressure Reflux ( GERD) Sciatica Chicken pox Surgical History Surgery Date(Month/Year) gall bladder 02/20/19 carpal tunnel surgery left and right
[2025-05-16 08:56] LABS: Cholesterol 287 mg/dL (<200); HDL Cholesterol 43 mg/dL (>40); Triglycerides 168 mg/dL (<150)
== END 2025-05-16 07:15 | disposition home or self-care (01) ==
LOC: HO.LAB 07:14
PROVIDERS: PCP Internal Medicine; Visit Provider Internal Medicine Cardiovascular Disease
DX: I35.0 Nonrheumatic aortic (valve) stenosis (principal); R00.2 Palpitations; Z13.6 Encounter for screening for cardiovascular disorders
CPT/HCPCS: 36415; 80061

== ENCOUNTER 2025-05-21 14:30 | Outpatient (AMB) | payer OTHER, SELFPAY ==
--- NOTE | 2025-05-21 14:42 | A.OFFVIS_ITS ---
Vital Signs 05/21/25 14:46 Height 5 ft 6 in Weight 203 lb 4.259 oz BMI 32.8 BP 120/72 Blood Pressure Location Lt brachial Position Sitting Pulse 71 Pulse Source Monitor Intake Visit Reasons: 1 yr s/p echo Intake Note: 1 yr f/up echo Assembly Leader Required: No Accompanied by: Self / Same As Patient Allergies acetaminophen (From VICODIN) Allergy (Unknown, Verified 10/30/23 15:08) LOW BP/NAUSEA hydrocodone (From VICODIN) Allergy (Unknown, Verified 10/30/23 15:08) NAUSEA/LOW BP oxycodone (From PERCOCET) Allergy (Unknown, Verified 10/30/23 15:08) LOW BP/NAUSEA tramadol (TRAMADOL) Allergy (Unknown, Verified 10/30/23 15:08) NAUSEA/LOW BP, hypotension rosuvastatin Adverse Reaction (Severe, Verified 10/30/23 15:08) Muscle Pain simvastatin Adverse Reaction (Severe, Verified 10/30/23 15:08) Muscle Pain Statin Adverse Reaction (Severe, Uncoded 10/30/23 15:08) Severe joint/muscle pain Medication List - Last Reconciled 05/21/25 by Tay Priest MD aspirin (Ecotrin Low Strength) 81 mg PO DAILY ezetimibe 10 mg PO BEDTIME multivitamin (Daily Value tablet) 1 tab PO DAILY olmesartan 5 mg PO DAILY omeprazole 20 mg PO DAILY HPI Comments Details: Candelaria comes for follow-up. She says more recently when she pushes herself while biking she feels shortness of breath and chest pressure. She then asked to back off. Symptoms have not worsened. She has not had any symptoms at rest. No exertional lightheadedness, syncope. Her recent echocardiogram shows moderate aortic stenosis which is slightly progressed. Her repeat LDL off medications except for ezetimibe is 211 which is significantly elevated. She has not tolerated statins in the past with multiple statins causing her to have significant muscle aches. Her blood pressure is well controlled. [facility] Medical History Lumbar radiculitis Hyperlipidemia HTN (hypertension) Surgical History Hx laparoscopic cholecystectomy History of carpal tunnel surgery of left wrist History of carpal tunnel surgery of right wrist H/O section Family History Father Diabetes Hx of heart artery stent Pacemaker Mother No problems noted. Brother No problems noted. Brother No problems noted. Brother No problems noted. Sister No problems noted. Sister Breast cancer Sister No problems noted. Sister No problems noted. Daughter Family history of thyroid problem Daughter No problems noted. Daughter No problems noted. Social History Alcohol intake: current Alcohol intake frequency: holidays/special occasions only Alcohol type: beer Patient Tobacco Use Status: Never used Tobacco service: No Review of Systems Const Denies chills, Denies fatigue, Denies fever(s), Denies frequent falls, Denies weakness, Denies weight gain and Denies weight loss ENT Denies dizziness Card Denies chest pain, Denies leg edema, Denies lightheadedness, Denies palpitations, Denies dyspnea and Denies dyspnea on exertion Resp Denies cough, Denies dyspnea and Denies dyspnea on exertion GI Denies hematochezia Musc Denies abnormal gait, Denies muscle weakness, Denies numbness, Denies radiating pain into limb and Denies tingling Neuro Denies abnormal gait, Denies dizziness, Denies frequent falls, Denies numbness, Denies tingling and Denies weakness Endo Denies fatigue and Denies palpitations Physical Exam Vital Signs: Last Vital Signs Pulse 71 05/21/25 14:46 BP 120/72 05/21/25 14:46 BMI result Body Mass Index 32.8 Const General: cooperative, healthy appearing, comfortable and no acute distress Orientation/consciousness: patient oriented x3 HEENT Head: Yes normal to inspection Neck Neck: Yes normal visual inspection Resp Effort & Inspection: normal respiratory effort Auscultation: clear to auscultation bilaterally, no crackles, no rales, no rhonchi and no wheezes Cardio Jugular venous distension: no JVD Rate: regular rate Rhythm: regular rhythm Heart sounds: S1 normal heart sound present, S2 normal heart sound present, Murmur heart sound present systolic mid, decrescendo and crescendo and no rubs Neuro General: patient oriented x3 Extrem General: Yes normal to inspection, No no pedal edema and No calf tenderness Psych Appearance: grossly normal Mental Status: mental status grossly normal Speech and movement: Normal speech and movement present Office Procedures EKG Details: EKG shows normal sinus rhythm normal EKG [id number], Complete Assessment & Plan Assessment & Plan (1) Exertional chest pain: Code(s): R07.9 - Chest pain, unspecified Category: Medical Plan: Exertional chest pain in this middle-aged woman with multiple risk factors including uncontrolled marked hyperlipidemia as well as hypertension with symptoms there are highly suggestive of underlying obstructive coronary artery disease. Advise her to avoid significant strenuous exertion. Continue low-dose aspirin therapy. Advised to pursue exercise treadmill stress test has a physiologic test to assess for level of activity that causes her to have her symptoms and assess for myocardial ischemia both for diagnose to can prognostic purposes. This test will be scheduled in near future. (2) Aortic stenosis: Code(s): I35.0 - Nonrheumatic aortic (valve) stenosis Category: Medical Plan: Aortic stenosis which is moderate and has progressed. This is mild progression and not likely to be the cause of her symptoms. Requires aggressive risk factor modification. LDL is markedly elevated and this should be controlled to hopefully delay the progression to severe aortic stenosis. Have prescribed her Repatha as she has not been tolerating statin therapy and she is on ezetimibe therapy. Target goal LDL less than 70 mg/dL. Continue low-dose aspirin therapy. Continue aggressive blood pressure control which is currently well optimized. Will follow up in the clinic in 2 weeks time, sooner PRN. Thank you for allowing me to partake in her care Orders: Orders CA stress test Today Tay Priest MD R07.9 - Chest pain, unspecified NM cardiolite stress test 2 Weeks Tay Priest MD R07.9 - Chest pain, unspecified Medications: New evolocumab (Repatha SureClick) 140 mg subcut Q2W 2 mL 5RF Tay Priest MD Changed From olmesartan 10 mg (2 x 5 mg) PO DAILY 180 tabs 3RF To olmesartan 5 mg PO DAILY Mariah Becerril LIVING SKILLS ADVISOR-C Coding Level of Care Code Est Pt Level 4 (00598) Complex EM visit Add On G2211 Diagnoses Exertional chest pain R07.9 Aortic stenosis I35.0 CPT Codes EKG - CPT: 93242-[id number], Complete ([id number])
[2025-05-21 14:46] VITALS: BP 120/72; PULSE 71; BMI 32.8
--- OUTSIDE RECORDS SUMMARY | 2025-05-21 18:52 | XMS_ITS | Clinical Summary ---
Author Organization [facility] Address [address] [place] [address] Phone Care Team Providers Care Sap Security Consultant Name Role Phone Unknown, Unknown Primary Care [...] SEE NARRATIVE - 09/23/2019 1:28 [place] [address] Bilingual Counter Sales Retail: Naomy Howard MD PIANO TEACHER Cytology Report FINAL DIAGNOSIS A. PAP SMEAR [...] 52, 56, 58, 59, 66, 68) by [employer] Onclarity HR-HPV analysis. Clinical correlation is advised. This HPV test was performed at [facility], [address] [place] [address]. This test has been FDA approved for SurePath cervical cytology specimens. The accuracy and precision of this test for all other specimen sources has been verified in the Cytopathology Laboratory of the [facility] and has not been cleared or approved by the U.S. Food and Drug Administration. Clinical correlation is advised. CLINICAL HISTORY Date of Last Menstrual Period: Not Provided Menstrual History: Post Menopausal Other Clinical Conditions: Screening Pap SPECIMEN SOURCE A: PAP SMEAR (SUREPATH) CE Patient Name: CANDELARIA ANDRES : 1960 (Age: 59) Sex: F Institution: [facility] Location: [facility] Date of Collection: 08/28/2019 Date of Reported: 09/02/2019 15:50 Results to: Darci Koch MD Darci Koch MD CYTOLOGY ORDERABLES Edited Resu lt - Final SEE NARRATIVE from Last 3 Months or Most Recently Relevant to Health Maintenance Insurance [facility] H[facility] Care Teams Sap Security Consultant Relationship Specialty Start Date End Date Unknown, Unknown, PCP - General 07/10/18 Additional Source Comments The information contained in this document represents components of the legal health record. It is not the complete legal health record.[facility]
--- OUTSIDE RECORDS SUMMARY | 2025-05-21 18:52 | XMS_ITS | Patient Health Record ---
[facility] Address [address] [place] [address] Care Team Providers Care Tuyere Fitter Name Role Phone Tiffany MUKHERJEE, Sophia Dennis Primary Care Provider Luis Francois Unavailable [phone] Allergies Allergen (clinical drug ingredient) Drug/Non Drug [...] Status Risk Notes Problem Acquired hallux valgus (24496439) Hallux valgus (acquired), left foot (M20.12) Active confirmed Plan Of Treatment Pending Test Test Name Order Date X ray : Foot, left 3V 12/01/2020 Insurance Providers Payer Name Payer Address Payer Phone Subscriber Number Group Number Insured Name Patient Relationship to Insured Coverage Start Date Coverage End Date [facility] [address] [facility] [address] [id number] Candelaria Cedillo Self - patient is the insured Medical (General) History Medical History History ICD Code Back,Hip,and Knee pain Cholesterol Depression Gall bladder problems High blood pressure Reflux ( GERD) Sciatica Chicken pox Surgical History Surgery Date(Month/Year) gall bladder 02/20/19 carpal tunnel surgery left and right
--- OUTSIDE RECORDS SUMMARY | 2025-05-21 18:52 | XMS_ITS | Patient Health Record ---
Author Organization [facility] Address [address] [place] [address] Care Team Providers Care Crushing Machine Operator Name Role Phone Tiffany Sophia Dennis Primary Care Provider UnavailDarci Peguero Unavailable [phone] Allergies Allergen (clinical drug ingredient) Drug/Non Drug [...] Problem Status W/U Status Risk Notes Problem [id number] Blood in stool (K92.1) Active confirmed Problem 21513485 Rectal bleed (K62.5) Active confirmed Plan Of Treatment Future Test Test Name Order Date COLONOSCOPY 06/30/2011 COLONOSCOPY 12/20/2017 Insurance Providers Payer Name Payer Address Payer Phone Subscriber Number Group Number Insured Name Patient Relationship to Insured Coverage Start Date Coverage End Date [facility] [address] [place] [phone] [id number] ANDRÉS ANDRES Self - patient is the insured Medical (General) History Medical History History ICD Code Hypertension Hyperlipidemia Denies MD,DM,CVA,Lung disease,renal dise ase Neg. screening colonoscopy i n 07/2011 except for a hyperplastic polyp, int/ext hemorrhoids Effexor for hot flashes Surgical History Surgery Date(Month/Year) Carpal tunnel surgery C-sections
== END 2025-05-21 15:11 | disposition home or self-care (01) ==
LOC: HO.HCS 14:31
PROVIDERS: PCP Internal Medicine; Visit Provider Internal Medicine Cardiovascular Disease
DX: R07.9 Chest pain, unspecified (principal); I35.0 Nonrheumatic aortic (valve) stenosis
CPT/HCPCS: 93010; 99214; G2211

== ENCOUNTER → 2025-05-21 14:30 | Outpatient (BNVA) | payer OTHER, SELFPAY | PROVIDERS: PCP Internal Medicine; Visit Provider Internal Medicine Cardiovascular Disease | DX: I35.0 Nonrheumatic aortic (valve) stenosis (principal) | CPT/HCPCS: 93005 ==

== ENCOUNTER → 2025-05-28 08:50 | Outpatient (REF) | payer OTHER, SELFPAY ==
--- NOTE | ~2025-05-28 | NM_ITS ---
EXERCISE MYOCARDIAL PERFUSION STUDY INDICATION: Chest pain TECHNIQUE: The patient was brought in for an exercise perfusion study on 05/28/2025. Patient performed exercise as per Sherif protocol and was injected 30 mCi of sestamibi once target heart rate was achieved. Images were obtained using the SPECT gamma camera interlaced with the gating device. Images were obtained in supine position. Resting perfusion study was performed on 05/29/2025. Patient was administered 30 mCi of sestamibi intravenously at rest. Images were then obtained in supine position. Total DLP 142 mGy-cm. Images were processed with the software and compared side to side in short axis, horizontal long axis and vertical long axis views. FINDINGS: Raw aquisition reviewed. The stress perfusion study showed no significant perfusion abnormality. Both uncorrected as well as CT attenuation corrected images were reviewed. The gated study shows normal LV systolic function with calculated LVEF of 52%, but visually appears higher. LV cavity is normal in size. The gated study shows normal wall thickening and contraction of segments. Resting study shows no significant perfusion abnormality. Gating at rest reveals normal wall motion with ejection fraction at 72%. The findings are consistent with no clear reversible or fixed perfusion abnormality. NM/NM cardiolite stress test IMPRESSION: 1. Myocardial perfusion imaging study shows normal myocardial perfusion. 2. Gated LVEF is 52% during stress but visually appears higher. 72% during rest. 3. Transient ischemic dilatation not present. EKG component of the test reported separately. Electronically signed by: Julio Rodriguez MD 05/31/2025 01:35 PM EDT
--- NOTE | 2025-05-28 08:56 | CA_ITS ---
Acquisition Time: 2025-05-28 09:03:13 Total Exercise Time: 00:05:29 Test Indications: CHEST PAIN Medications: ASA Protocol: TO Max HR: 141 BPM 90% of Pred: 156 BPM Max BP: 136/80 mmHG Max Work Load: 7.0 METS Exercise stress test with exercise 5 min 29 sec of To protocol, achieving > 85% MPHR, with 2/10 mid chest pressure at baseline that increased to 5/10 with exercise, mild shortness of breath, with isolated PVC, with normotensive response to exercise, without EKG changes meeting criteria for ischemia. In recovery her chest pressure improved to a 2-3/10. If she inhales deeply - the feeling is not present but returns when she exhales. Nuclear images pending. Test reviewed with Dr Rodriguez. Referred By: Tay Priest Electronically Signed By: DEMARIO BERNARD
--- OUTSIDE RECORDS SUMMARY | 2025-05-28 09:21 | XMS_ITS | Clinical Summary ---
Author Organization [facility] Address [address] [place] [address] Phone Care Team Providers Care Import Export Manager Name Role Phone Unknown, Unknown Primary Care [...] SEE NARRATIVE - 09/23/2019 1:28 [place] [address] Bar Waiter/Waitress: Naomy Howard MD POWER GENERATION PLANT OPERATOR Cytology Report FINAL DIAGNOSIS A. PAP [...] 52, 56, 58, 59, 66, 68) by [employer] Onclarity HR-HPV analysis. Clinical correlation is advised. This HPV test was performed at [facility], [address] [place] [address]. This test has been FDA approved for SurePath cervical cytology specimens. The accuracy and precision of this test for all other specimen sources has been verified in the Cytopathology Laboratory of the [facility] and has not been cleared or approved by the U.S. Food and Drug Administration. Clinical correlation is advised. CLINICAL HISTORY Date of Last Menstrual Period: Not Provided Menstrual History: Post Menopausal Other Clinical Conditions: Screening Pap SPECIMEN SOURCE A: PAP SMEAR (SUREPATH) CE Patient Name: CANDELARIA ANDRES : 1960 (Age: 59) Sex: F Institution: [facility] Location: [facility] Date of Collection: 08/28/2019 Date of Reported: 09/02/2019 15:50 Results to: Dacri Koch MD Darci Koch MD CYTOLOGY ORDERABLES Edited Resu lt - Final SEE NARRATIVE from Last 3 Months or Most Recently Relevant to Health Maintenance Insurance [facility] H[facility] Care Teams Import Export Manager Relationship Specialty Start Date End Date Unknown, Unknown, PCP - General 07/10/18 Additional Source Comments The information contained in this document represents components of the legal health record. It is not the complete legal health record.[facility]
--- OUTSIDE RECORDS SUMMARY | 2025-05-28 09:21 | XMS_ITS | Clinical Summary ---
Author Organization [facility] [address] [place] [address] Address [address] [place], [place] Phone Care Team Providers Care Insulation Engineman Name Role Phone Carlo Horner MD Primary Care Provider Allergies Active Allergy Reactions Criticality Noted Date Comments Hydrocodone Itching,Nausea And Vomiting 02/12/2015 hypotension Hydrocodone-Acetaminoph en 01/13/2019 Oxycodone Itching 02/12/2015 Oxycodone-Acetaminophen 08/16/2016 Ysfjyfj-Kld-Xzf Reductase Inhibitors Dizziness Medium 01/26/2023 Statins Support [...] syndrome) 02/12/2015 Overview (08/22/2024): CTR 03/09 Immunizations Immunization Administration Dates Next Due Influenza trivalent, 0.5mL [...] drink = 0.6 oz pur e alcohol) Housing Instability Answer Date Recorde d Are you worried that in the next 2 months you may not have stable housing? No 05/22/2025 Food Access & Nutrition Answer Date Rec orded Do you have access to a vari ety of food including fruits and vegetables? Yes 05/22/2025 Access to Healthcare Answer Date Record ed Within the last 3 months, ho juan m many times did you visit the emergency department for your medical care? 0 05/22/2025 Health Literacy Answer Date Recorded How often do you need to hav e someone help you when you read instructions, pamphlets, or other written material from your doctor or pharmacy? Never 05/22/2025 Caregiver: How often do you need to have someone help you when you read instructions, pamphlets, or other written material from your doctor or pharmacy? Not on file 05/22/2025 Financial Risk Answer Date Recorded How hard is it for you to pa y for the very basics like food, housing, medical care, and air conditioning / heating? Not very hard 05/22/2025 Transportation Answer Date Recorded Has the lack of transportati on kept you from meetings, work, or from getting things needed for daily living? No Has the lack of transportati on kept you from medical appointments or from getting medications? No 05/22/2025 Social Isolation Answer Date Recorded How often do you feel lonely or isolated from th ose around you? Never 05/22/2025 Food Risk Answer Date Recorded Within the past 12 months we worried whether our food would run out before we got money to buy more. Never true 05/22/2025 Within the past 12 months th e food we bought just didn't last and we didn't have money to get more. Never true 05/22/2025 Dependent Care Answer Date Recorded Do you need help finding or paying for care for your loved ones. For example, child psychiatrist or elderly care for an older adult? No 05/22/2025 Education Answer Date Recorded Do you think completing more education or training, like finishing a GED, going to college, or learning a trade, would be helpful for you? No 05/22/2025 Employment and Income Answer Date Recor ded During the last four weeks, have you been actively looking for work? No 05/22/2025 Living Situation Answer Date Recorded What is your living situation? Unrecognized valu e 05/22/2025 Comments Unknown Sex and Gender Information Value [...] Visit Adult Medicine [facility] [address], [place] [phone] Carlo Horner MD [address] [place], [place] Health Maintenance Due Date Last Done Comments Pneumococcal Vaccine: 50+ Years (1 of 1 - PCV) 2011 HIV Screening 07/29/2022 Hypertension/CHF/CAD Annual BMP Blood Test 10/25/2024 10/26/2023 COVID-19 Vaccine (3 - season) 2025 10/08/2020, 09/17/2020 Influenza Vaccine (#1) 2025 , 05/30/2022, 05/19/2020, Additional history exists DTaP,Tdap,and Td Vaccines (4 - Td or Tdap) 05/24/2025 05/24/2015, 11/21/2012, 09/21/2006 Breast Cancer Screening 11/10/2025 11/10/2024, 11/10 Social Influencers of Health Screening 05/22/2026 05/22/2025 Colorectal Cancer Screening: Colonoscopy 01/19/2028 01/18/2018 Cholesterol Screening (Lipid Panel) 10/25/2028 10/26/2023 Cervical Cancer Screening: HPV 01/06/2029 01/07/2024 RSV Immunization Adult Patients (1 - 1-dose 75+ series) 01/30/2036 Hepatitis C Screening Completed 05/24/2015 Zoster Vaccines Completed 08/09/2018, 04/27/2018 Depression Screening Completed 05/22/2025 HIB Vaccines Aged Out No longer eligi [...] Name Priority Date/Time Associated Diagnosis Comments EXTERNAL CLINICAL LAB 05/16/2025 EXTERNAL MAMMOGRAM REPORT 11/10/2024 HPV Routine 01/07/2024 ANNUAL BMP BLOOD TEST Routine 10/26/2023 LIPID PANEL Routine 10/26/2023 COLONOSCOPY Routine 01/18/2018 HEPATITIS C SCREENING Routine 05/24/2015 from Last 3 Months or Most Recently Relevant to Health Maintenance Results * External clinical lab (05/16/2025) [facility] LAB BLOOD ORDERABLES Fin al Result * External Mammogram Report (11/10/2024) Anatomical Region Laterality Modality Mammography Provider [facility] IMG BI PROCEDURES Final Result * Cervical Cancer Screening: HPV (01/07/2024) [facility] Cervical Cancer Screening: HPV negative, abstracted Result [facility] Provider HEALTH MAINTENANCE Final Result * Annual BMP Blood Test (10/26/2023) Pathologist [facility] Annual BMP Blood Test abstracted [facility] Provider HEALTH MAINTENANCE Final Result * (ABNORMAL) Lipid panel (10/26/2023) [facility] LDL/HDL Ratio 4 0 - 4 Triglycerides 121 0 - 150 mg/dL Cholesterol 215(A) 0 - 200 mg/dL HDL 52 >=40 mg/dL LDL Cholesterol 139(A) 0 - 100 mg/dL Blood Venous blood specimen / Unknown [facility] Provider LAB BLOOD ORDERABLES Ashley l Result * Colonoscopy (01/18/2018) Pathologist [facility] Colonoscopy normal, abstracted Anatomical Region Laterality Modality Other us Historical Provider HEALTH MAINTENANCE Final Result * Hepatitis C Screening (05/24/2015) Hepatitis C Screening abstracted Historical Provider HEALTH MAINTENANCE Final Result from Last 3 Months or Most Recently Relevant to Health Maintenance Insurance * Guarantor: Andrés Andres Account Type Relation to Patient Date of Phone Billing Address Personal/Family Self 1960 x120 (Work) [address] [place] [address] [facility] Care Teams Insulation Engineman Relationship Specialty Start Date End Date Carlo Horner MD [address] [place] [address] PCP - General 01/30/23
--- OUTSIDE RECORDS SUMMARY | 2025-05-28 09:21 | XMS_ITS | Patient Health Record ---
[facility] Address [address] [place] [address] Care Team Providers Care Color Control Operator Name Role Phone Tiffany MUKHERJEE, Sophia Dennis Primary Care Provider Luis Francois Unavailable [phone] Allergies Allergen (clinical drug ingredient) Drug/Non Drug [...] Administration Date Status Comme nts COVID-19 Pfizer BioNTJybe Vaccine Unknown 10/08/2020 Adm inistered 1# 09/17/20 [...] Status Risk Notes Problem Acquired hallux valgus (85251041) Hallux valgus (acquired), left foot (M20.12) Active confirmed Plan Of Treatment Pending Test Test Name Order Date X ray : Foot, left 3V 12/01/2020 Insurance Providers Payer Name Payer Address Payer Phone Subscriber Number Group Number Insured Name Patient Relationship to Insured Coverage Start Date Coverage End Date [facility] [address] [facility] [id number] Candelaria Cedillo Self - patient is the insured Medical (General) History Medical History History ICD Code Back,Hip,and Knee pain Cholesterol Depression Gall bladder problems High blood pressure Reflux ( GERD) Sciatica Chicken pox Surgical History Surgery Date(Month/Year) gall bladder 02/20/19 carpal tunnel surgery left and right
--- OUTSIDE RECORDS SUMMARY | 2025-05-28 09:21 | XMS_ITS | Patient Health Record ---
Author Organization [facility] Address [address] [place] [address] Care Team Providers Care Tire Mold Tester Name Role Phone Tiffany Sophia Dennis Primary Care Provider UnavailDarci Peguero Unavailable [phone] Allergies Allergen (clinical drug ingredient) Drug/Non Drug [...] Problem Status W/U Status Risk Notes Problem [id number] Blood in stool (K92.1) Active confirmed Problem 99256011 Rectal bleed (K62.5) Active confirmed Plan Of Treatment Future Test Test Name Order Date COLONOSCOPY 06/30/2011 COLONOSCOPY 12/20/2017 Insurance Providers Payer Name Payer Address Payer Phone Subscriber Number Group Number Insured Name Patient Relationship to Insured Coverage Start Date Coverage End Date [facility] [address] [place] [address] [id number] ANDRÉS ANDRES Self - patient is the insured Medical (General) History Medical History History ICD Code Hypertension Hyperlipidemia Denies MO,DM,CVA,Lung disease,renal dise ase Neg. screening colonoscopy i n 07/2011 except for a hyperplastic polyp, int/ext hemorrhoids Effexor for hot flashes Surgical History Surgery Date(Month/Year) Carpal tunnel surgery C-sections
== END ==
LOC: HO.CARD 08:50
PROVIDERS: PCP Internal Medicine; Visit Provider Internal Medicine Cardiovascular Disease
DX: R07.9 Chest pain, unspecified (principal)
CPT/HCPCS: 78452; 93017; A9500

== ENCOUNTER → 2025-05-28 08:56 | Outpatient (BNV) | payer OTHER, SELFPAY | PROVIDERS: PCP Internal Medicine; Visit Provider Nurse Practitioner Family | DX: I49.3 Ventricular premature depolarization (principal); R07.89 Other chest pain | CPT/HCPCS: 78452; 93016; 93018 ==

== ENCOUNTER 2025-06-03 09:49 | Outpatient (AMB) | payer OTHER, SELFPAY ==
--- NOTE | 2025-06-03 10:09 | MHC.OFFVIS ---
Vital Signs 06/03/25 10:10 Height 5 ft 6 in Weight 202 lb 13.204 oz BMI 32.7 BP 130/80 Blood Pressure Location Lt brachial Position Sitting Pulse 72 Intake Visit Reasons: 2 wk follow up/ stress test Intake Note: 2 week follow-up after stress test Medical Professionals Required: No Allergies acetaminophen (From VICODIN) Allergy (Unknown, Verified 10/30/23 15:08) LOW BP/NAUSEA hydrocodone (From VICODIN) Allergy (Unknown, Verified 10/30/23 15:08) NAUSEA/LOW BP oxycodone (From PERCOCET) Allergy (Unknown, Verified 10/30/23 15:08) LOW BP/NAUSEA tramadol (TRAMADOL) Allergy (Unknown, Verified 10/30/23 15:08) NAUSEA/LOW BP, hypotension rosuvastatin Adverse Reaction (Severe, Verified 10/30/23 15:08) Muscle Pain simvastatin Adverse Reaction (Severe, Verified 10/30/23 15:08) Muscle Pain Statin Adverse Reaction (Severe, Uncoded 10/30/23 15:08) Severe joint/muscle pain Medication List - Last Reconciled 06/03/25 by Tay Priest MD aspirin (Ecotrin Low Strength) 81 mg PO DAILY evolocumab (Repatha SureClick) 140 mg subcut Q2W multivitamin (Daily Value tablet) 1 tab PO DAILY olmesartan 5 mg PO DAILY omeprazole 20 mg PO DAILY HPI Comments Details: Candelaria comes for follow-up after recent stress test. She continues to have symptoms exertional chest pressure/tightness. She had the similar symptoms when she was on a treadmill. Although EKGs was negative for ischemia and myocardial perfusion imaging looked unremarkable. She is still waiting to get her Repatha approved. Blood pressures remained stable. [facility] Medical History Lumbar radiculitis Hyperlipidemia HTN (hypertension) Surgical History Hx laparoscopic cholecystectomy History of carpal tunnel surgery of left wrist History of carpal tunnel surgery of right wrist H/O section Family History Father Diabetes Hx of heart artery stent Pacemaker Mother No problems noted. Brother No problems noted. Brother No problems noted. Brother No problems noted. Sister No problems noted. Sister Breast cancer Sister No problems noted. Sister No problems noted. Daughter Family history of thyroid problem Daughter No problems noted. Daughter No problems noted. Social History Alcohol intake: current Alcohol intake frequency: holidays/special occasions only Alcohol type: beer Patient Tobacco Use Status: Never used Tobacco service: No Review of Systems Const Denies chills, Denies fatigue, Denies fever(s), Denies frequent falls, Denies weakness, Denies weight gain and Denies weight loss ENT Denies dizziness Card Denies chest pain, Denies leg edema, Denies lightheadedness, Denies palpitations, Denies dyspnea, Denies dyspnea on exertion, Denies orthopnea and Denies other (loss of consciousness) Resp Denies cough, Denies dyspnea and Denies dyspnea on exertion GI Denies hematochezia and Denies change in stool character Musc Denies abnormal gait, Denies muscle weakness, Denies numbness, Denies radiating pain into limb and Denies tingling Neuro Denies abnormal gait, Denies dizziness, Denies frequent falls, Denies numbness, Denies tingling and Denies weakness Endo Denies fatigue and Denies palpitations Physical Exam Vital Signs: Last Vital Signs Pulse 72 06/03/25 10:10 BP 130/80 06/03/25 10:10 BMI result Body Mass Index 32.7 Const General: cooperative, healthy appearing, comfortable and no acute distress Orientation/consciousness: patient oriented x3 HEENT Head: Yes normal to inspection Neck Neck: Yes normal visual inspection Resp Effort & Inspection: normal respiratory effort Auscultation: clear to auscultation bilaterally, no crackles, no rales, no rhonchi and no wheezes Cardio Jugular venous distension: no JVD Rate: regular rate Rhythm: regular rhythm Heart sounds: S1 normal heart sound present, S2 normal heart sound present, Murmur heart sound present systolic mid, decrescendo and crescendo and no rubs Neuro General: patient oriented x3 Extrem General: Yes normal to inspection, No no pedal edema and No calf tenderness Psych Appearance: grossly normal Mental Status: mental status grossly normal Speech and movement: Normal speech and movement present Assessment & Plan Assessment & Plan (1) Exertional chest pain: Code(s): R07.9 - Chest pain, unspecified Category: Medical Plan: Exertional chest pain this middle-aged woman with marked hyperlipidemia with negative stress test at moderate workload. Most likely suggest that she does not have significant obstructive coronary disease although I concerned 5% of the time could have balanced ischemia and significant coronary disease that could be missed by stress testing. Would suggest a coronary CTA given that she continues to have exertional chest tightness. Have advised her that if she gets any of the symptoms at rest to seek emergency care and will prescribe her nitroglycerin. Continue blood pressure control, see below. Advised to restart ezetimibe therapy as well as will work on getting her Repatha approved. (2) Aortic stenosis: Code(s): I35.0 - Nonrheumatic aortic (valve) stenosis Category: Medical Plan: Aortic stenosis which is moderate. Will monitor by echocardiogram on annual basis. Continue low-dose aspirin therapy. Continue aggressive vascular risk factor modifications above. (3) HTN (hypertension): Code(s): I10 - Essential (primary) hypertension Category: Medical Plan: Hypertension currently well optimized on olmesartan therapy. Continue the same. Advised to monitor blood pressure at home maintain a log. Goal blood pressure less than 130/84. Will follow up in the clinic in 2 months time, sooner PRN. Thank you for allowing me to partake in her care Orders: Orders CT Cardiac Coronary Angio 1 Week R07.9 - Chest pain, unspecified Basic Metabolic Panel Today R07.9 - Chest pain, unspecified Medications: New ezetimibe 10 mg PO DAILY 30 tabs 2RF R07.9 - Chest pain, unspecified Coding Level of Care Code Est Pt Level 4 (13886) Complex EM visit Add On G2211 Diagnoses Exertional chest pain R07.9 Aortic stenosis I35.0 HTN (hypertension) I10
[2025-06-03 10:10] VITALS: BP 130/80; PULSE 72; BMI 32.7
--- OUTSIDE RECORDS SUMMARY | 2025-06-03 10:27 | XMS_ITS | Continuity of Care Document ---
Author Organization [facility] Address [address] [facility] [address] [place] [address] Insurance Providers Payer Plan Claims Address Claims Phone Policy Number Group Number Relation Employer Guarantor Name Guarantor Guarantor [place] [address] tel:[phone] [id number] [phone] Self Candelaria Cedillo [address] [place] [address] [facility] tel:[phone] [id number] Self Candelaria Cedillo [address] [place] [address] [facility], [address], [place] [address] tel:[phone] Self Candelaria Cedillo [address] [place] [id number] Problems Unknown Problems Results Test Result Date/Time Value / Unit Interp. Refere pae Range Comp. Metabolic Panel (14)[3 [id number]] Collected: 07/02/2024 04:31 PM Specimen Received: 07/02/2024 05:00 AM Source: [facility] Glucose [[id number]] 07/03/2024 04:10 AM 93 mg/dL 70-99 mg/dL BUN [[id number]] 07/03/2024 04:15 AM 13 mg/dL 8-2 7 mg/dL Creatinine [[id number]] 07/03/2024 04:10 AM 1.03 mg/dL H 0.57-1.00 mg/dL eGFR [[id number]] 07/03/2024 04:10 AM 61 mL/min/1.73 >59 mL/min/1.73 BUN/Creatinine Ratio [[id number]] 07/03/2024 04:15 AM 13 12-28 Sodium [[id number]] 07/03/2024 04:06 AM 140 mmol/L 134-144 mmol/L Potassium [[id number]] 07/03/2024 04:09 AM 5.0 mmol/L 3.5-5.2 mmol/L Chloride [104389] 07/03/2024 04:04 AM 101 mmol/L 96-106 mmol/L Carbon Dioxide, Total [[id number]] 07/03/2024 04:08 AM 25 mmol/L 20-29 mmol/L Calcium [[id number]] 07/03/2024 04:08 AM 9.7 mg/dL 8.7-10.3 mg/dL Protein, Total [[id number]] 07/03/2024 04:23 AM 7.4 g/dL 6.0-8.5 g/dL Albumin [246030] 07/03/2024 04:16 AM 4.4 g/dL 3.9-4.9 g/dL Globulin, Total [[id number]] 07/03/2024 04:23 AM 3.0 g/dL 1.5-4.5 g/dL Bilirubin, Total [[id number]] 07/03/2024 04:17 AM 0.7 mg/dL 0.0-1.2 mg/dL Alkaline Phosphatase [754071] 07/03/2024 04:18 AM 76 IU/L 44-121 IU/L AST (SGOT) [[id number]] 07/03/2024 04:16 AM 31 IU/L 0-40 IU/L ALT (SGPT) [[id number]] 07/03/2024 04:16 AM 25 IU/L 0-32 IU/L Lipid Panel[[id number]] Collected: 07/02/2024 04:31 PM Specimen Received: 07/02/2024 05:00 AM Source: [facility] Cholesterol, Total [[id number]] 07/03/2024 04:30 AM 235 mg/dL H 100-199 mg/d L Triglycerides [[id number]] 07/03/2024 04:25 AM 211 mg/dL H 0-149 mg/dL HDL Cholesterol [[id number]] 07/03/2024 04:28 AM 47 mg/dL >39 mg/dL VLDL Cholesterol Daniel [[id number]] 07/03/2024 04:30 AM 38 mg/dL 5-40 mg/dL LDL Chol Calc ([facility]) [[id number]] 07/03/2024 04:30 AM 150 mg/dL H 0-99 mg/dL Hemoglobin A1c[[id number]] Collected: 07/02/2024 04:31 PM Specimen Received: 07/02/2024 05:00 AM Source: [facility] Hemoglobin A1c [[id number]] 07/03/2024 06:00 AM 5.9 % H 4.8-5.6 % . Prediabetes: 5.7 - 6.4 Di abetes: >6.4 Glycemic control for adults with diabetes: 7.0 Allergies, adverse reactions, alerts No known allergies and adverse reactions Medications No administered medications reported Vital Signs No vital signs reported Social History No smoking Hx information available
--- OUTSIDE RECORDS SUMMARY | 2025-06-03 10:27 | XMS_ITS | Continuity of Care Document ---
Author Organization [facility] Address [address] [facility] [address] [place] [id number] Insurance Providers Payer Plan Claims Address Claims Phone Policy Number Group Number Relation Employer Guarantor Name Guarantor Guarantor [place] [address] tel:[phone] Self Candelaria Cedillo [address] [place] [address] [facility] tel:[phone] [id number] [phone] Self Candelaria Cedillo [address] [place] [address] [facility], [address], [place] [address] tel:[phone] Self Candelaria Cedillo [address] [place] [address] Problems Unknown Problems Results Test Result Date/Time Value / Unit Interp. Refere mne Range Comp. Metabolic Panel (14)[3 [id number]] Collected: 07/02/2024 04:31 PM Specimen Received: 07/02/2024 05:00 AM Source: [facility] Glucose [[id number]] 07/03/2024 04:10 AM 93 mg/dL 70-99 mg/dL BUN [[id number]] 07/03/2024 04:15 AM 13 mg/dL 8-2 7 mg/dL Creatinine [[id number]] 07/03/2024 04:10 AM 1.03 mg/dL H 0.57-1.00 mg/dL eGFR [[id number]] 07/03/2024 04:10 AM 61 mL/min/1.73 >59 mL/min/1.73 BUN/Creatinine Ratio [[id number]] 07/03/2024 04:15 AM 13 12-28 Sodium [[id number]] 07/03/2024 04:06 AM 140 mmol/L 134-144 mmol/L Potassium [[id number]] 07/03/2024 04:09 AM 5.0 mmol/L 3.5-5.2 mmol/L Chloride [[id number]] 07/03/2024 04:04 AM 101 mmol/L 96-106 mmol/L Carbon Dioxide, Total [477600] 07/03/2024 04:08 AM 25 mmol/L 20-29 mmol/L Calcium [771177] 07/03/2024 04:08 AM 9.7 mg/dL 8.7-10.3 mg/dL Protein, Total [[id number]] 07/03/2024 04:23 AM 7.4 g/dL 6.0-8.5 g/dL Albumin [507576] 07/03/2024 04:16 AM 4.4 g/dL 3.9-4.9 g/dL Globulin, Total [[id number]] 07/03/2024 04:23 AM 3.0 g/dL 1.5-4.5 g/dL Bilirubin, Total [[id number]] 07/03/2024 04:17 AM 0.7 mg/dL 0.0-1.2 mg/dL Alkaline Phosphatase [958110] 07/03/2024 04:18 AM 76 IU/L 44-121 IU/L AST (SGOT) [[id number]] 07/03/2024 04:16 AM 31 IU/L 0-40 IU/L ALT (SGPT) [[id number]] 07/03/2024 04:16 AM 25 IU/L 0-32 IU/L Lipid Panel[[id number]] Collected: 07/02/2024 04:31 PM Specimen Received: 07/02/2024 05:00 AM Source: [facility] Cholesterol, Total [[id number]] 07/03/2024 04:30 AM 235 mg/dL H 100-199 mg/d L Triglycerides [[id number]] 07/03/2024 04:25 AM 211 mg/dL H 0-149 mg/dL HDL Cholesterol [[id number]] 07/03/2024 04:28 AM 47 mg/dL >39 mg/dL VLDL Cholesterol Daniel [[id number]] 07/03/2024 04:30 AM 38 mg/dL 5-40 mg/dL LDL Chol Calc ([facility]) [[id number]] 07/03/2024 04:30 AM 150 mg/dL H 0-99 mg/dL Hemoglobin A1c[[id number]] Collected: 07/02/2024 04:31 PM Specimen Received: 07/02/2024 05:00 AM Source: [facility] Hemoglobin A1c [[id number]] 07/03/2024 06:00 AM 5.9 % H 4.8-5.6 % . Prediabetes: 5.7 - 6.4 Di abetes: >6.4 Glycemic control for adults with diabetes: 7.0 Allergies, adverse reactions, alerts No known allergies and adverse reactions Medications No administered medications reported Vital Signs No vital signs reported Social History No smoking Hx information available
== END 2025-06-03 10:40 | disposition home or self-care (01) ==
LOC: HO.HCS 09:50
PROVIDERS: PCP Internal Medicine; Visit Provider Internal Medicine Cardiovascular Disease
DX: R07.9 Chest pain, unspecified (principal); I35.0 Nonrheumatic aortic (valve) stenosis; I10 Essential (primary) hypertension
CPT/HCPCS: 99214; G2211

== ENCOUNTER 2025-06-29 15:18 | Outpatient (REF) | payer OTHER, SELFPAY ==
[2025-06-29 16:31] LABS: Anion Gap 10 (12-20); Blood Urea Nitrogen 20 mg/dL (9-16); Calcium 9.3 mg/dL (8.4-10.2); Carbon Dioxide 31 mmol/L (22-29); Chloride 104 mmol/L (96-108); Estimated Glomerular Filt Rate > 60; Potassium 4.2 mmol/L (3.3-5.1); Sodium 141 mmol/L (135-145)
--- OUTSIDE RECORDS SUMMARY | 2025-06-29 16:35 | XMS_ITS | Clinical Summary ---
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 Active aspirin 81 mg chewable tablet Chew 1 tablet (81 mg total) 1 (one) time each day. Active olmesartan (BENICAR) 5 mg tablet Take 1 tablet (5 mg total) by mouth 1 (one) time each day. Active omeprazole (PriLOSEC) [address] capsule Take 1 capsule (20 mg total) by mouth 1 (one) time each day. Do not crush or chew. 90 capsule 1 5 Active omeprazole (PriLOSEC) [address] capsule TAKE ONE CAPSULE BY MOUTH EVERY DAY 90 capsule 1 5 06/02/20 25 Discontinu ed(Reorder ) Active Problems Problem Noted Date Diagnosed Date Statin intolerance 05/28/2025 COVID-19 08/26/2020 Primary osteoarthritis of both hands 10/06/2019 Primary osteoarthritis of both knees 10/06/2019 Pain in joint, multiple sites 08/19/2019 Gastroesophageal reflux disease 05/07/2019 Elevated glucose 06/22/2015 Overview (08/22/2024): History gestational diabetes per transfer notes Genital herpes 05/24/2015 Depression 05/24/2015 Hypertension 02/12/2015 Hypercholesterolemia 02/12/2015 CTS (carpal tunnel syndrome) 02/12/2015 Overview (08/22/2024): CTR 03/09 Encounters Date Type Department Care Team Description 06/03/2025 Results Follow-Up Adult Medicine [address] [address] Carlo Horner MD 05/28/2025 4:00 PM EDT Office Visit Adult Medicine [address] [address] Carlo Horner MD Adult general medical examination (Primary Dx); Hypercholesterolemia ; Hypertension, unspecified type; Screening for diabetes mellitus (DM); Statin intolerance; Need for tetanus, diphtheria, and acellular pertussis (Tdap) vaccine from Last 3 Months Immunizations Immunization Administration Dates Next Due Influenza trivalent, 0.5mL ( Fluad) 65yo and older 04/27/2018 Influenza trivalent, 0.5mL, preservative free (Fluarix; FluLaval; Fluzone) ages 6mo and older (Afluria) 3 years and older 05/19/2020,05/11/2019,06/04/2017 Influenza, Unspecified 05/21/2025,2022,05/30/2022,2015,06/22/2015 Td Tetanus diptheria (Tdvax) 7yo and older 09/21/2006 Tdap Tetanus diptheria acell ular pertussis (Boostrix; Adacel) 7yo and older 05/28/2025,05/24/2015,11/21/2012 Zoster recombinant (Shingrix ) 19yo and older [...] Date Smoking Tobacco: Never Smokeless Tobacco: Never Tobacco Cessation:Counseling Given: Not Answered Alcohol Use Standard Drinks/Week Comments Yes 0 [...] ed Within the last 3 months, ho w many times did you visit the emergency [...] care for your loved ones. For example, maternal child nurse or elderly care for an older adult? [...] Sign Reading Time Taken Comments Blood Pressure 107/63 05/28/2025 3:50 PM EDT Pulse 68 05/28/2025 3:50 PM EDT Temperature 36.2 C (97.1 F) 05/28/2025 3:50 PM EDT Respiratory Rate 16 05/28/2025 3:50 PM EDT Oxygen Saturation 97% 05/28/2025 3:50 PM EDT Inhaled Oxygen Concentration - - Weight 91.9 kg (202 lb 9.6 oz) 05/28/2025 3:50 P M EDT Height 167.6 cm (5' 6 ) 05/28/2025 3:50 PM EDT Body Mass Index 32.7 05/28/2025 3:50 PM EDT Plan of Treatment Health Maintenance Due Date Last Done Comments Pneumococcal Vaccine: 50+ Years (1 of 1 - PCV) 2011 COVID-19 Vaccine ( season) 2025 06/24/2021, 10/08/2020, 09/17/2020 Breast Cancer Screening 11/10/2025 11/10/2024, 11/10 Social Influencers of Health Screening 05/22/2026 05/22/2025 Hypertension/CHF/CAD Annual BMP Blood Test 06/02/2026 06/02/2025, 10/26/2023 Colorectal Cancer Screening: Colonoscopy 01/19/2028 01/18/2018 Cholesterol Screening (Lipid Panel) 10/25/2028 10/26/2023 Cervical Cancer Screening: HPV 01/06/2029 01/07/2024 DTaP,Tdap,and Td Vaccines (5 - Td or Tdap) 05/28/2035 05/28/2025, 05/24/2015, 11/21/2012, Additional history exists RSV Immunization Adult Patients (1 - 1-dose 75+ series) 01/30/2036 Hepatitis C Screening Completed 05/24/2015 Zoster Vaccines Completed 08/09/2018, 04/27/2018 Influenza Vaccine Completed 05/21/2025, , 05/30/2022, Additional history exists Depression Screening Completed 05/22/2025 HIB Vaccines Aged Out No longer eligi ble based on patient's age to complete this topic HIV Screening Discontinued HPV Vaccines Aged Out No longer eligi [...] Procedure Name Priority Date/Time Associated Diagnosis Comments CBC WITH AUTO DIFFERENTIAL Routine 06/02/2025 7:49 AM EDT Hypertension, unspecified type CBC AND DIFFERENTIAL Routine 06/02/2025 7:49 AM EDT Hypertension, unspecified type COMPREHENSIVE METABOLIC PANEL Routine 06/02/2025 7:49 AM EDT Hypertension, unspecified type HEMOGLOBIN A1C Routine 06/02/2025 7:49 AM EDT Screening for diabetes mellitus (DM) EXTERNAL NUC MED REPORT 05/28/2025 EXTERNAL CLINICAL LAB 05/16/2025 EXTERNAL MAMMOGRAM REPORT 11/10/2024 HPV Routine 01/07/2024 LIPID PANEL Routine 10/26/2023 COLONOSCOPY Routine 01/18/2018 HEPATITIS C SCREENING Routine 05/24/2015 from Last 3 Months or Most Recently Relevant to Health Maintenance Results * (ABNORMAL) CBC auto differential (06/02/2025 7:49 AM EDT) [facility] WBC 5.7 4.8 - 10.8 K/mcL LAB HEMETOLOGY METHOD 06/02/2025 11:12 AM [facility] RBC 4.90(H) 3.80 - 4.80 M/mcL LAB HEMETOLOGY METHOD 06/02/2025 11:12 AM [facility] Hemoglobin 14.0 11.5 - 16.0 g/dL LAB HEMETOLOGY METHOD 06/02/2025 11:12 AM [facility] Hematocrit 43.1 35.0 - 47.0 % LAB HEMETOLOGY METHOD 06/02/2025 11:12 AM [facility] MCV 88.1 79.0 - 98.0 FL LAB HEMETOLOGY METHOD 06/02/2025 11:12 AM [facility] MCH 28.6 27.0 - 32.0 pcg LAB HEMETOLOGY METHOD 06/02/2025 11:12 AM [facility] MCHC 32.5 32.0 - 37.0 g/dL LAB HEMETOLOGY METHOD 06/02/2025 11:12 AM [facility] RDW 12.9 11.0 - 15.0 % LAB HEMETOLOGY METHOD 06/02/2025 11:12 AM [facility] Platelets 228 130 - 400 K/mcL LAB HEMETOLOGY METHOD 06/02/2025 11:12 AM [facility] MPV 11.9(H) 7.0 - 11.0 FL LAB HEMETOLOGY METHOD 06/02/2025 11:12 AM [facility] NRBC 0.0 <1.0 % LAB HEMETOLOGY METHOD 06/02/2025 11:12 AM [facility] NRBC Absolute 0.00 <0.10 K/mcL LAB HEMETOLOGY METHOD 06/02/2025 11:12 AM [facility] Neutrophils Relative 55.4 % LAB HEMETOLOGY METHOD 06/02/2025 11:12 AM [facility] Lymphocytes Relative 30.9 % LAB HEMETOLOGY METHOD 06/02/2025 11:12 AM [facility] Monocytes Relative 9.2 % LAB HEMETOLOGY METHOD 06/02/2025 11:12 AM [facility] Eosinophils Relative 3.4 % LAB HEMETOLOGY METHOD 06/02/2025 11:12 AM [facility] Basophils Relative 0.9 % LAB HEMETOLOGY METHOD 06/02/2025 11:12 AM [facility] Immature Granulocytes Relative 0.2 % LAB HEMETOLOGY METHOD 06/02/2025 11:12 AM [facility] Neutrophils Absolute 3.14 1.50 - 7.00 K/mcL LAB HEMETOLOGY METHOD 06/02/2025 11:12 AM [facility] Lymphocytes Absolute 1.75 1.00 - 5.00 K/mcL LAB HEMETOLOGY METHOD 06/02/2025 11:12 AM [facility] Monocytes Absolute 0.52 0.20 - 1.00 K/mcL LAB HEMETOLOGY METHOD 06/02/2025 11:12 AM [facility] Eosinophils Absolute 0.19 0.00 - 0.50 K/mcL LAB HEMETOLOGY METHOD 06/02/2025 11:12 AM [facility] Basophils Absolute 0.05 0.00 - 0.20 K/mcL LAB HEMETOLOGY METHOD 06/02/2025 11:12 AM [facility] Immature Granulocytes Absolute 0.01 0.00 - 0.03 K/mcL LAB HEMETOLOGY METHOD 06/02/2025 11:12 AM [facility] Blood Venous blood specimen / Unknown Venipuncture / Unknown 06/02/2025 7:49 AM EDT 06/02/2025 7:49 AM EDT us Carlo Horner MD LAB BLOOD ORDERABLES F inal Result Performing Organization Address [facility] Co de Phone Number [facility] [address] [place] [address], [place] [phone] * Hemoglobin A1c (06/02/2025 7:49 AM EDT) [facility] Hemoglobin A1C 5.6 <6.5 % LAB CHEMISTRY METHOD 06/02/2025 1:41 PM EDT [facility] Mean Bld Glu Estim. 114 mg/dL LAB CHEMISTRY METHOD 06/02/2025 1:41 PM EDT [facility] Blood Venous blood specimen / Unknown Venipuncture / Unknown 06/02/2025 7:49 AM EDT 06/02/2025 7:49 AM EDT us Carlo Horner MD LAB BLOOD ORDERABLES F inal Result Performing Organization Address [facility]/ZIP Co de Phone Number [facility] [address] [place] [address], [place] [phone] * (ABNORMAL) Comprehensive metabolic panel (06/02/2025 7:49 AM EDT) [facility] Sodium 141 133 - 145 mmol/L LAB CHEMISTRY METHOD 06/02/2025 11:34 AM EDT [facility] Potassium 4.7 3.5 - 5.5 mmol/L LAB CHEMISTRY METHOD 06/02/2025 11:34 AM EDT [facility] Chloride 108 96 - 110 mmol/L LAB CHEMISTRY METHOD 06/02/2025 11:34 AM EDT [facility] CO2 27 21 - 32 mmol/L LAB CHEMISTRY METHOD 06/02/2025 11:34 AM [facility] Anion Gap 6 3 - 11 LAB CHEMISTRY METHOD 06/02/2025 11:34 AM [facility] Glucose 109(H) 70 - 100 mg/dL LAB CHEMISTRY METHOD 06/02/2025 11:34 AM [facility] BUN 20 5 - 25 mg/dL LAB CHEMISTRY METHOD 06/02/2025 11:34 AM [facility] Creatinine 1.06 0.50 - 1.10 mg/dL LAB CHEMISTRY METHOD 06/02/2025 11:34 AM [facility] eGFR 59(L) >=60 mL/min/1. 73m2 LAB CHEMISTRY METHOD 06/02/2025 11:34 AM [facility] Comment:Calculation based on the Chronic Kidney Disease Epidemiology Collaboration (CKD-EPI) equation refit without adjustment for race. BUN/Creatinine Ratio 18.9 LAB CHEMISTRY METHOD 06/02/2025 11:34 AM [facility] Calcium 9.3 8.5 - 10.5 mg/dL LAB CHEMISTRY METHOD 06/02/2025 11:34 AM [facility] AST (SGOT) 24 10 - 42 unit/L LAB CHEMISTRY METHOD 06/02/2025 11:34 AM [facility] ALT (SGPT) 25 10 - 60 unit/L LAB CHEMISTRY METHOD 06/02/2025 11:34 AM [facility] Alkaline Phosphatase 71 42 - 121 unit/L LAB CHEMISTRY METHOD 06/02/2025 11:34 AM [facility] Total Protein 7.4 6.0 - 8.0 g/dL LAB CHEMISTRY METHOD 06/02/2025 11:34 AM [facility] Albumin 3.7 3.2 - 5.0 g/dL LAB CHEMISTRY METHOD 06/02/2025 11:34 AM [facility] Total Bilirubin 0.5 0.0 - 1.4 mg/dL LAB CHEMISTRY METHOD 06/02/2025 11:34 AM EDT [facility] Blood Venous blood specimen / Unknown Venipuncture / Unknown 06/02/2025 7:49 AM EDT 06/02/2025 7:49 AM EDT Carlo Horner MD LAB BLOOD ORDERABLES F inal Result [facility] [address] [place] [address], [place] [phone] * External Nuc Med Report (05/28/2025) Anatomical Region Laterality Modality Nuclear Medicine Provider [facility] NM PROCEDURES Final Result * External clinical lab (05/16/2025) Provider [facility] LAB BLOOD ORDERABLES Fin al Result * External Mammogram Report (11/10/2024) Anatomical Region Laterality Modality Mammography Provider [facility] BI PROCEDURES Final Result * Cervical Cancer Screening: HPV (01/07/2024) [facility] Cervical Cancer Screening: HPV negative, abstracted Result [facility] Historical Provider HEALTH MAINTENANCE Final Result * (ABNORMAL) Lipid panel (10/26/2023) [facility] LDL/HDL Ratio 4 0 - 4 Triglycerides 121 0 - 150 mg/dL Cholesterol 215(A) 0 - 200 mg/dL HDL 52 >=40 mg/dL LDL Cholesterol 139(A) 0 - 100 mg/dL Blood Venous blood specimen / Unknown Result [facility] Historical Provider LAB BLOOD ORDERABLES Ashley l Result * Colonoscopy (01/18/2018) [facility] Colonoscopy normal, abstracted Anatomical Region Laterality Modality Other Historical Provider HEALTH MAINTENANCE Final Result * Hepatitis C Screening (05/24/2015) Hepatitis C Screening abstracted Historical Provider HEALTH MAINTENANCE Final Result from Last 3 Months or Most Recently Relevant to Health Maintenance Insurance [phone] (Work) [address] [facility] [id number] [facility] Care Teams 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
--- OUTSIDE RECORDS SUMMARY | 2025-06-29 16:35 | XMS_ITS | Patient Health Record ---
Author Organization [facility] Address [address] [place] [address] Care Team Providers Care Assembly Instructions Writer Name Role Phone Sophia Allen Primary Care Provider UnavailDarci Peguero Unavailable [phone] Allergies Allergen (clinical drug ingredient) Drug/Non Drug [...] She does not smoke nor use a wi significant amounts of alcohol. She does not smoke nor use a wi significant amounts of alcohol. Problems Problem Type SNOMED Code ICD Code Onset Dates Problem Status W/U Status Risk Notes Problem Blood in stool (066181793) Blood in stool (K92.1) Active confirmed Problem Hemorrhage of rectum and anus (371863338) Rectal bleed (K62.5) Active confirmed Plan Of Treatment Future Test Test Name Order Date COLONOSCOPY 06/30/2011 COLONOSCOPY 12/20/2017 Insurance Providers Payer Name Payer Address Payer Phone Subscriber Number Group Number Insured Name Patient Relationship to Insured Coverage Start Date Coverage End Date [facility] [address] [facility] ANA WEBB [phone] [id number] ANDRÉS ANDRES Self - patient is the insured Medical (General) History Medical History History ICD Code Hypertension Hyperlipidemia Denies WA,DM,CVA,Lung disease,renal dise ase Neg. screening colonoscopy i n 07/2011 except for a hyperplastic polyp, int/ext hemorrhoids Effexor for hot flashes Surgical History Surgery Date(Month/Year) Carpal tunnel surgery C-sections
--- OUTSIDE RECORDS SUMMARY | 2025-06-29 16:35 | XMS_ITS | Continuity of Care Document ---
Author Organization [facility] Address [address] [facility] [address] [place] [address] Insurance Providers Payer Plan Claims Address Claims Phone Policy Number Group Number Relation Employer Guarantor Name Guarantor Guarantor [place] [address] tel:[phone] Self Candelaria Cedillo [address] [place] [address] [facility] tel:[phone] [id number] [phone] Self Candelaria Cedillo [address] [place] [address] [facility], [address], [place] [address] tel:[phone] Self Candelaria Cedillo [address] [place] [address] Problems Unknown Problems Results Test Result Date/Time Value / Unit Interp. Refere ohe Range Comp. Metabolic Panel (14)[3 [id number]] Collected: 07/02/2024 04:31 PM Specimen Received: 07/02/2024 05:00 AM Source: [facility] Glucose [[id number]] 07/03/2024 04:10 AM 93 mg/dL 70-99 mg/dL BUN [[id number]] 07/03/2024 04:15 AM 13 mg/dL 8-2 7 mg/dL Creatinine [[id number]] 07/03/2024 04:10 AM 1.03 mg/dL H 0.57-1.00 mg/dL eGFR [[id number]] 07/03/2024 04:10 AM 61 mL/min/1.73 >59 mL/min/1.73 BUN/Creatinine Ratio [354882] 07/03/2024 04:15 AM 13 12-28 Sodium [449744] 07/03/2024 04:06 AM 140 mmol/L 134-144 mmol/L Potassium [465140] 07/03/2024 04:09 AM 5.0 mmol/L 3.5-5.2 mmol/L Chloride [958545] 07/03/2024 04:04 AM 101 mmol/L 96-106 mmol/L Carbon Dioxide, Total [254865] 07/03/2024 04:08 AM 25 mmol/L 20-29 mmol/L Calcium [048340] 07/03/2024 04:08 AM 9.7 mg/dL 8.7-10.3 mg/dL Protein, Total [779958] 07/03/2024 04:23 AM 7.4 g/dL 6.0-8.5 g/dL Albumin [400021] 07/03/2024 04:16 AM 4.4 g/dL 3.9-4.9 g/dL Globulin, Total [154707] 07/03/2024 04:23 AM 3.0 g/dL 1.5-4.5 g/dL Bilirubin, Total [775752] 07/03/2024 04:17 AM 0.7 mg/dL 0.0-1.2 mg/dL Alkaline Phosphatase [905752] 07/03/2024 04:18 AM 76 IU/L 44-121 IU/L AST (SGOT) [468965] 07/03/2024 04:16 AM 31 IU/L 0-40 IU/L ALT (SGPT) [668435] 07/03/2024 04:16 AM 25 IU/L 0-32 IU/L Lipid Panel[[id number]] Collected: 07/02/2024 04:31 PM Specimen Received: 07/02/2024 05:00 AM Source: [facility] Cholesterol, Total [[id number]] 07/03/2024 04:30 AM 235 mg/dL H 100-199 mg/d L Triglycerides [464565] 07/03/2024 04:25 AM 211 mg/dL H 0-149 mg/dL HDL Cholesterol [169853] 07/03/2024 04:28 AM 47 mg/dL >39 mg/dL VLDL Cholesterol Daniel [059145] 07/03/2024 04:30 AM 38 mg/dL 5-40 mg/dL LDL Chol Calc ([facility]) [[id number]] 07/03/2024 04:30 AM 150 mg/dL H 0-99 mg/dL Hemoglobin A1c[886486] Collected: 07/02/2024 04:31 PM Specimen Received: 07/02/2024 05:00 AM Source: [facility] Hemoglobin A1c [[id number]] 07/03/2024 06:00 AM 5.9 % H 4.8-5.6 % . Prediabetes: 5.7 - 6.4 Di abetes: >6.4 Glycemic control for adults with diabetes: 7.0 Allergies, adverse reactions, alerts No known allergies and adverse reactions Medications No administered medications reported Vital Signs No vital signs reported Social History No smoking Hx information available
--- OUTSIDE RECORDS SUMMARY | 2025-06-29 16:35 | XMS_ITS | Encounter Summary ---
Author Organization [facility] [place] [address] Care Team Providers Care Naturopathic Physician Name Role Phone Carlo Horner MD Primary Care Provider Encounter Details Date Type Department Care Team (Late st Contact Info) Description 06/03/2025 Results Follow-Up Adult Medicine [facility] [address] [place], [place] [phone] Carlo Horner MD [address] [place], [place] Social History Tobacco Use Types Packs/Day Years [...] for your loved ones. For example, child care cook or elderly care for an older adult? [...] Orientation Straight 07/01/2024 7: 49 AM EST documented as of this encounter Plan of Treatment Not on file documented as of this encounter Visit Diagnoses Not on filedocumented in this encounter Additional Health Concerns Assessment Noted Time PHQ-9 Depression Total Score: 0 05/22/20 25 8:48 AM EDT documented as of this encounter Care Teams Naturopathic Physician Relationship Specialty Start Date End Date Carlo Horner MD [address] [place] [address] PCP - General 01/30/23 documented as of this encounter
--- OUTSIDE RECORDS SUMMARY | 2025-06-29 16:35 | XMS_ITS | Patient Health Record ---
Author [facility] Address [address] [place] [address] Care Team Providers Care Consolidator Name Role Phone Tiffany MUKHERJEE, Sophia Dennis Primary Care Provider Luis Staples Unavailable [phone] Allergies Allergen (clinical drug ingredient) Drug/Non Drug [...] Administration Date Status Comme nts COVID-19 Pfizer BioNTNetchemia Vaccine Unknown 10/08/2020 Adm inistered 1# 1/22/21 Social History Tobacco Use: Social History Observation [...] Status Risk Notes Problem Acquired hallux valgus (51516356) Hallux valgus (acquired), left foot (M20.12) Active confirmed Plan Of Treatment Pending Test Test Name Order Date X ray : Foot, left 3V 12/01/2020 Insurance Providers Payer Name Payer Address Payer Phone Subscriber Number Group Number Insured Name Patient Relationship to Insured Coverage Start Date Coverage End Date [facility] [address] [place] [address] [id number] Candelaria Cedillo Self - patient is the insured Medical (General) History Medical History History ICD Code Back,Hip,and Knee pain Cholesterol Depression Gall bladder problems High blood pressure Reflux ( GERD) Sciatica Chicken pox Surgical History Surgery Date(Month/Year) gall bladder 02/20/19 carpal tunnel surgery left and right
== END 2025-06-29 15:19 | disposition home or self-care (01) ==
LOC: HO.LAB 15:18
PROVIDERS: PCP Internal Medicine; Visit Provider Internal Medicine Cardiovascular Disease
DX: R07.9 Chest pain, unspecified (principal)
CPT/HCPCS: 36415; 80048